=== PATIENT | male | born 1975 | race Caucasian/White ===

== ENCOUNTER 2022-10-22 10:36 | Outpatient (REF) | payer OTHER, SELFPAY ==
[2022-10-22 14:00] LABS: Hematocrit 47.2 % (42.0-52.0); Hemoglobin 15.6 g/dl (14.0-18.0); Mean Corpuscular HGB Conc 33.1 g/dl (31.0-36.0); Mean Corpuscular Hemoglobin 27.2 pg (27.0-33.0); Mean Corpuscular Volume 82.4 fL (80.0-98.0); Mean Platelet Volume 10.7 fL (9.4-12.4); Platelet Count 240 X10*3/uL (160-400); Red Blood Count 5.73 X10*6/uL (4.60-5.80); Red Cell Distribution Width 13.2 % (11.0-16.0); White Blood Count 7.1 X10*3/uL (4.8-10.8)
[2022-10-22 14:40] LABS: Alanine Aminotransferase 68 U/L (0-40); Albumin Level 4.3 g/dL (3.5-5.0); Alkaline Phosphatase 70 U/L (39-117); Anion Gap 11 (12-20); Aspartate Amino Transferase 34 U/L (5-37); Bilirubin Total 0.6 mg/dL (0.0-1.0); Blood Urea Nitrogen 17 mg/dL (9-16); Calcium 9.4 mg/dL (8.4-10.2); Carbon Dioxide 28 mmol/L (22-29); Chloride 103 mmol/L (96-108); Cholesterol 190 mg/dL; Estimated Glomerular Filt Rate > 60; Glucose Fasting 92 mg/dL (60-99); HDL Cholesterol 39 mg/dL; LDL Cholesterol Calculated 121 mg/dl; Potassium 4.2 mmol/L (3.3-5.1); Sodium 138 mmol/L (135-145); Total Protein 6.8 g/dL (6.5-8.0); Triglycerides 152 mg/dL
== END 2022-10-22 10:37 | disposition home or self-care (01) ==
LOC: HO.WFDLDS 10:36
PROVIDERS: Visit Provider Nurse Practitioner Family
DX: Z00.00 Encounter for general adult medical examination without abnormal findings (principal); R82.998 Other abnormal findings in urine
CPT/HCPCS: 36415; 80053; 80061; 84443; 85027; 87086

== ENCOUNTER 2023-01-21 09:37 | Outpatient (REF) | payer OTHER, SELFPAY ==
[2023-01-21 12:36] LABS: Alanine Aminotransferase 66 U/L (0-40); Albumin Level 4.1 g/dL (3.5-5.0); Alkaline Phosphatase 79 U/L (39-117); Aspartate Amino Transferase 29 U/L (5-37); Bilirubin Direct < 0.2 mg/dL (0.0-0.5); Bilirubin Total 0.4 mg/dL (0.0-1.0); Total Protein 6.6 g/dL (6.5-8.0)
[2023-01-21 12:58] LABS: TSH reflex Free T4 0.53 uIU/mL (0.32-4.0)
== END 2023-01-21 09:38 | disposition home or self-care (01) ==
LOC: HO.WFDLDS 09:37
PROVIDERS: Visit Provider Nurse Practitioner Family
DX: E03.9 Hypothyroidism, unspecified (principal); R74.8 Abnormal levels of other serum enzymes
CPT/HCPCS: 36415; 80076; 84443

== ENCOUNTER 2023-06-03 07:05 | Outpatient (REF) | payer OTHER, SELFPAY ==
[2023-06-03 12:23] LABS: TSH reflex Free T4 1.67 uIU/mL (0.32-4.0)
== END 2023-06-03 07:06 | disposition home or self-care (01) ==
LOC: HO.HMGCLDS 07:05
PROVIDERS: PCP Nurse Practitioner Family; Visit Provider Nurse Practitioner Family
DX: E03.9 Hypothyroidism, unspecified (principal); J45.909 Unspecified asthma, uncomplicated
CPT/HCPCS: 36415; 84443

== ENCOUNTER 2023-06-04 16:16 | Outpatient (AMB) | payer OTHER, SELFPAY ==
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
[2023-06-04 16:20] VITALS: BP 130/72; PULSE 78; O2SAT 97; BMI 38.9
== END 2023-06-04 16:55 | disposition home or self-care (01) ==
PROVIDERS: PCP Nurse Practitioner Family; Visit Provider Nurse Practitioner Family
DX: E03.9 Hypothyroidism, unspecified (principal); J45.909 Unspecified asthma, uncomplicated
CPT/HCPCS: 99213

== ENCOUNTER 2023-07-17 15:10 | Outpatient (AMB) | payer OTHER, SELFPAY ==
--- NOTE | 2023-07-17 15:15 | MHC.OFFVIS ---
Intake Vital Signs 07/17/23 15:17 Height 5 ft 11 in Weight 283 lb BMI 39.5 BP 130/68 Blood Pressure Location Rt brachial Position Sitting Pulse 84 Pulse Oximetry (%) 96 Oxygen Delivery Method Room Air 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: Asthma Print Line Inspector Required: No Healthcare Market Consultant: Healthcare Market Consultant offered & declined Accompanied by: Self / Same As Patient Allergies acetaminophen [From Percocet] Allergy (Unknown, Verified 07/17/23 15:19) Unknown oxycodone [From Percocet] Allergy (Unknown, Verified 07/17/23 15:19) Unknown Medication List - Last Reconciled 07/17/23 by Nhi Adrian LPN albuterol sulfate 90 mcg/actuation 2 puffs inhalation Q4-6H PRN aspirin 325 mg PO DAILY [id number]-hzkaqvzy 200-62.5-25 mcg (Trelegy Ellipta) 1 ea inhalation DAILY levothyroxine (Synthroid) 200 mcg PO DAILY 30 days montelukast 10 mg PO DAILY 90 days HPI Asthma HPI Details Franco is a pleasant 48 year old male, former smoker with 14 pack year history, quit 20 years ago with underlying asthma. He was referred by PCP for pulmonary evaluation. He reports suboptimal control with Trelegy, singulair and has been using his albuterol MDI upwards of 5 times per day with partial relief. He reports intermittent wheezing and dyspnea with moderate exertion, at times with minimal exertion. He also reports seasonal allergies with nasal congestion and post nasal drip. He notes allergies to dogs and cats, he has 3 dogs at home. He denies any childhood asthma. Mother, smoker, with lung cancer. He denies any occupational exposures. 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 Cognitive needs: No Hearing needs: No Vision needs: Yes Review of Systems Const Denies chills, Denies excessive sweating, Denies fever(s), Denies headache(s) and Denies night sweats Eyes Denies dry eyes, Denies irritation and Denies itchy eyes ENT Reports Normal hearing present, Denies headache(s) and Denies sore throat Card Denies chest pain, Denies chest pain at rest, Denies chest pain with activity, Denies leg edema, Denies orthopnea and Denies paroxysmal nocturnal dyspnea Resp Denies chest congestion, Denies cough, Denies excessive phlegm production, Denies pain on inspiration, Denies pain with cough and Denies stridor Musc Denies myalgias Neuro Reports Normal hearing present and Denies headache(s) Endo Denies excessive sweating Edmund/Lymph Denies lymphadenopathy Aller/Immun Denies itchy eyes and Denies seasonal rhinorrhea Physical Exam Vital Signs: Last Vital Signs Pulse 84 07/17/23 15:17 BP 130/68 07/17/23 15:17 Pulse Ox 96 07/17/23 15:17 Oxygen Delivery Method Room Air 07/17/23 15:17 BMI result Body Mass Index 39.5 Const General: cooperative, healthy appearing, comfortable, no acute distress, well developed and alert Nutritional Appearance: obese Orientation/consciousness: patient oriented x3 Limitations: no limitations HEENT Head: Yes normal to inspection, Yes normocephalic and Yes atraumatic Ears: hearing grossly normal bilaterally and external ears normal Eyes General: appearance normal, both eyes and all related structures Eyelids: Yes eyelids normal Sclerae: sclerae normal EOM: EOMs intact bilaterally Neck Neck: Yes normal visual inspection and Yes no lymphadenopathy Lymphatic: no lymphadenopathy noted Chest Chest palpation & inspection: normal inspection of the chest Resp Effort & Inspection: normal respiratory effort, able to speak in complete sentences, no audible wheezes, no cough, no stridor, not tachypneic, no tripod positioning and no use of accessory muscles Auscultation: clear to auscultation bilaterally Cardio Jugular venous distension: no JVD Rate: regular rate Rhythm: regular rhythm Skin Other: warm, dry General skin exam: no rashes or lesions noted Neuro General: patient oriented x3 Cranial nerves: Yes Normal hearing present Cognition (Neuro): normal cognition Gait exam (Neuro): Normal gait present Extrem General: Yes normal to inspection, Yes capillary refill normal, Yes no clubbing, cyanosis or edema and Yes no pedal edema Psych Appearance: grossly normal and well kempt Speech and movement: Normal speech and movement present and Clear speech present Affect: normal affect Attitude: cooperative Thought process: Normal thought process present Thought content: Normal thought content present Insight: Good insight present (Psych) Judgement: Good judgement present (Psych) Assessment & Plan Assessment & Plan (1) Asthma: Code(s): J45.909 - Unspecified asthma, uncomplicated Plan Patient with suboptimal control on Trelegy, singulair and albuterol MDI. Will send in prescription for nebulizer and duoneb. Briefly discussed biologics. Will obtain labs and send for PFT to thoroughly evaluate. All questions were answered and patient is in agreement of plan. Will follow up in 6 weeks. Medications: New albuterol sulfate 2.5 mg (3 mL) inhalation Q4-6H PRN 90 mL 0RF shortness of breath or wheezing ipratropium-albuterol 0.5 mg-3 mg(2.5 mg base)/3 mL 3 mL inhalation Q6H PRN 90 mL 3RF wheezing Changed From albuterol sulfate 90 mcg/actuation 2 puffs inhalation Q4-6H PRN 8.5 grams 3RF shortness of breath or wheezing To albuterol sulfate 90 mcg/actuation 2 puffs inhalation Q4-6H PRN 1 ea 3RF shortness of breath or wheezing NS Refilled montelukast 10 mg PO DAILY 90 days 90 tabs 3RF Coding Level of Care Code New Pt Level 3 (64347) Diagnoses Asthma J45.909
[2023-07-17 15:17] VITALS: BP 130/68; PULSE 84; O2SAT 96; BMI 39.5
== END 2023-07-17 15:52 | disposition home or self-care (01) ==
LOC: HO.HPSW 15:10
PROVIDERS: PCP Nurse Practitioner Family; Referring Provider Nurse Practitioner Family; Visit Provider Nurse Practitioner Family
DX: J45.909 Unspecified asthma, uncomplicated (principal)
CPT/HCPCS: 99203

== ENCOUNTER 2023-08-29 07:13 | Outpatient (REF) | payer OTHER, SELFPAY ==
[2023-08-29 12:20] LABS: TSH reflex Free T4 3.19 uIU/mL (0.32-4.0)
== END 2023-08-29 07:14 | disposition home or self-care (01) ==
LOC: HO.HMGCLDS 07:13
PROVIDERS: Absent Provider Nurse Practitioner Family; PCP Nurse Practitioner Family; Visit Provider Nurse Practitioner Family
DX: E03.9 Hypothyroidism, unspecified (principal); J45.909 Unspecified asthma, uncomplicated; Z91.09 Other allergy status, other than to drugs and biological substances
CPT/HCPCS: 36415; 82785; 84443; 86003

== ENCOUNTER 2023-10-14 13:14 | Outpatient (AMB) | payer OTHER, SELFPAY ==
[2023-10-14 13:15] VITALS: BP 136/80; PULSE 87; RESP 13; TEMP 36.6; O2SAT 97; BMI 40.2
--- NOTE | 2023-10-14 13:15 | A.OFFPC_ITS ---
Vital Signs 10/14/23 13:15 Height 5 ft 11 in Weight 288 lb 2 oz BMI 40.2 BP 136/80 Blood Pressure Location Rt brachial Position Sitting Respiration 13 Pulse 87 Pulse Source Pulse Oximeter Temp 97.8 F Temp Source Temporal Artery Scan Pulse Oximetry (%) 97 Oxygen Delivery Method Room Air 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: 3 mos hypothyroidism, asthma Day Trader Required: No Accompanied by: Self / Same As Patient Allergies acetaminophen [From Percocet] Allergy (Unknown, Verified 07/17/23 15:19) Unknown oxycodone [From Percocet] Allergy (Unknown, Verified 07/17/23 15:19) Unknown Tobacco use date assessed: 06/04/23 Dental Screening Dental Screen Date: 10/14/23 Did you have a dental visit in the last 12 months?: No Did you have a dental problem in the last 6 months where you did not have access to dental care?: No Was dental information given to patient?: Yes HPI HPI Comments History of Present Illness Details 48-year-old male presents for asthma and hypothyroidism follow-up He was seen by [facility] pulmonology in July and has a follow-up appointment to more He admits to taking his medications as prescribed without adverse reactions He offers no complaints and denies acute symptoms a this time [facility] Medical History No pertinent past medical history Surgical History History of back surgery Family History Mother Lung cancer Other Diabetes Social History Housing: House Alcohol intake: never Patient Tobacco Use Status: Former Tobacco user Cigarette Packs Per Day: 1 Years Smoked: 15 e-Cigarette/Vaping Use: Never Used Second Hand Smoke Exposure: No service: No Current occupational status: employed 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: More than 3 times per day How would you rate your asthma control during the past 4 weeks?: Somewhat controlled ACT Interpretation: Positive Score: 13 Review of Systems Const Details: Const Denies chills, Denies fatigue, Denies fever(s), Denies headache(s) and Denies weakness ENT Denies dizziness and Denies headache(s) Card Denies chest pain, Denies lightheadedness, Denies dyspnea and Denies other (Palpitations) Resp Denies cough, Denies dyspnea, Denies wheezing and Denies other ( shortness of breath) GI Denies abdominal pain, Denies melena, Denies hematochezia, Denies change in bowel habits, Denies dyspepsia and Denies nausea Denies hematuria and Denies dysuria Musc Denies abnormal gait, Denies myalgias, Denies arthralgias, Denies numbness and Denies tingling Skin/Breast Denies rash, Denies unusual bruising and Denies wounds Neuro Denies abnormal gait, Denies dizziness, Denies headache(s), Denies memory loss, Denies numbness, Denies Sensory deficit (Neuro), Denies tingling and Denies weakness Psych Denies anxiety, Denies depression, Denies memory loss Endo Denies cold intolerance, Denies fatigue, Denies heat intolerance, Denies polydipsia and Denies polyuria Aller/Immun Denies wheezing Physical exam (Primary Care) Vital Signs: Last Vital Signs Temp 97.8 F 10/14/23 13:15 Pulse 87 10/14/23 13:15 Resp 13 10/14/23 13:15 BP 136/80 10/14/23 13:15 Pulse Ox 97 10/14/23 13:15 Oxygen Delivery Method Room Air 10/14/23 13:15 BMI result Body Mass Index 40.2 Tobacco/Smoking Status: Tobacco use Status Tobacco use date assessed 06/04/23 10/14/23 13:23 Patient Tobacco Use Status Former Tobacco user 10/14/23 13:23 e-Cigarette/Vaping Use Never Used 10/14/23 13:23 Thrive Assessment: Date of Thrive Assessment Date Thrive assessed 06/04/23 10/14/23 13:23 Const Other: General: no acute distress and well developed Nutritional Appearance: well nourished Orientation/consciousness: patient oriented x3 [facility] Head: Yes normocephalic and Yes atraumatic Eyes General: appearance normal, both eyes and all related structures Pupils: Equal, round and reactive pupils present EOM: EOMs intact bilaterally Resp Effort & Inspection: normal respiratory effort Auscultation: clear to auscultation bilaterally Cardio Rate: regular rate Rhythm: regular rhythm Heart sounds: S1 normal heart sound present, S2 normal heart sound present, no gallops, no murmurs and no rubs GI Palpation (GI): No Abdominal aortic bruit present, Soft to palpation, nontender, No hepatosplenomegaly present and No Rebound tenderness present Auscultation: normal bowel sounds General: Yes no CVA tenderness Back/Spine/Pelvis Back: no CVA tenderness Cervical Spine: cervical ROM normal and No Cervical spine tenderness Thoracic/Lumbar Spine: thoraco-lumbar ROM normal, No pain with thoraco-lumbar ROM, No thoracic spinal tenderness and No lumbar spinal tenderness Extrem General: Yes normal to inspection, No edema and No calf tenderness Skin General: warm and dry. Normal skin color. Normal skin turgor Lesions: no lesions Rashes: no rashes Trauma: no lacerations or abrasions Wounds: no wounds Nails: normal Neuro General: patient oriented x3, gait normal and no focal neuro deficit Cranial nerves: Yes Equal, round and reactive pupils present Cognition (Neuro): normal cognition Gait exam (Neuro): Normal gait present Sensory Exam: No Sensory deficit (Neuro) Psych Appearance: grossly normal Affect: normal affect Attitude: cooperative Thought process: Normal thought process present Assessment and Plan Assessment & Plan (1) Asthma: Code(s): J45.909 - Unspecified asthma, uncomplicated Plan: ACT score is 13 and indicates poorly control asthma No acute symptoms Continue current treatment regimen and follow-up pulmonology as planned Advised to schedule a follow-up visit for an extended physical exam or return sooner with worsening or new symptoms Verbalized understanding and agreed with treatment (2) Hypothyroidism: Code(s): E03.9 - Hypothyroidism, unspecified Plan: Recent TSH was normal Continue current treatment regimen Follow-up in 1 month for an extended physical exam Verbalized understanding and agreed with treatment plan (3) Normal physical examination, routine: Code(s): Z00.00 - Encounter for general adult medical examination without abnormal findings Plan: Fasting labs ordered as part of a complete physical exam. Advised to fast for at least 10 hours before getting labs drawn. May drink water Verbalized understanding and agreed with treatment plan. Orders: Orders Complete Blood Count Auto Diff Today Z00.00 - Encounter for general adult medical examination without abnormal findings Comprehensive [place]. Panel Fast Today Z00.00 - Encounter for general adult medical examination without abnormal findings TSH reflex Free T4 Today Z00.00 - Encounter for general adult medical examination without abnormal findings Lipid Panel Today Z00.00 - Encounter for general adult medical examination without abnormal findings PSA, Ultra Sensitive Today Z00.00 - Encounter for general adult medical examination without abnormal findings Referrals Gastroenterology Referral Z12.11 - Encounter for screening for malignant neoplasm of colon Medications: Refilled levothyroxine (Synthroid) Synthroid - no substitution 200 mcg PO DAILY 30 days 30 tabs 3RF Coding Level of Care Code Est Pt Level 3 (74986) Diagnoses Asthma J45.909 Hypothyroidism E03.9 Normal physical examination, routine Z00.00
== END 2023-10-14 13:39 | disposition home or self-care (01) ==
PROVIDERS: PCP Nurse Practitioner Family; Visit Provider Nurse Practitioner Family
DX: J45.909 Unspecified asthma, uncomplicated (principal); E03.9 Hypothyroidism, unspecified; Z00.00 Encounter for general adult medical examination without abnormal findings
CPT/HCPCS: 99213

== ENCOUNTER 2023-10-15 07:34 | Outpatient (REF) | payer OTHER, SELFPAY ==
--- NOTE | 2023-10-15 08:30 | PFT_ITS ---
Flows: FEV1: 60 % of predicted at 2.45 L FVC: 75 % of predicted at 3.86 L FEV1/FVC: 62 % Bronchodilator response: Absent Volumes: Total lung capacity: 72 % of predicted at 5.39 L Residual volume: 79 % of predicted at 1.53 L Slow vital capacity: 70 % of predicted at 3.86 L Expiratory reserve volume: 26 % of predicted at 1.53 L Diffusion capacity: Mildly decreased, corrects to normal after adjustment for alveolar ventilation. Impression: Moderate obstructive ventilatory defect with no bronchodilator response. Decreased expiratory reserve volume suggests extrathoracic restriction likely secondary to abdominal obesity. Decreased diffusion capacity suggests emphysema. MTDD
== END 2023-10-15 07:35 | disposition home or self-care (01) ==
LOC: HO.RESP 07:34
PROVIDERS: PCP Nurse Practitioner Family; Visit Provider Nurse Practitioner Family
DX: J45.909 Unspecified asthma, uncomplicated (principal)
CPT/HCPCS: 94010; 94727; 94729

== ENCOUNTER → 2023-10-15 18:30 | Outpatient (BNV) | payer OTHER, SELFPAY | PROVIDERS: PCP Nurse Practitioner Family; Visit Provider Internal Medicine Pulmonary Disease | DX: J45.909 Unspecified asthma, uncomplicated (principal) | CPT/HCPCS: 94060; 94727; 94729 ==

== ENCOUNTER 2023-12-03 08:22 | Outpatient (AMB) | payer OTHER, SELFPAY ==
[2023-12-03 08:24] VITALS: BP 122/82; PULSE 100; O2SAT 96
--- NOTE | 2023-12-03 08:24 | A.OFFVIS_ITS ---
Intake Vital Signs 3 12/03/23 08:24 Weight 291 lb BP 122/82 Blood Pressure Location Lt brachial Position Sitting Pulse 100 Pulse Source Pulse Oximeter Pulse Oximetry (%) 96 Oxygen Delivery Method Room Air 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: asthma Allergies acetaminophen [From Percocet] Allergy (Unknown, Verified 12/03/23 08:28) Unknown oxycodone [From Percocet] Allergy (Unknown, Verified 12/03/23 08:28) Unknown Medication List - Last Reconciled 12/03/23 by Ifrah Valenzuela LPN albuterol sulfate 90 mcg/actuation 2 puffs inhalation Q4-6H PRN NS albuterol sulfate 2.5 mg (3 mL) inhalation Q4-6H PRN aspirin 325 mg PO DAILY [id number] 200-62.5-25 mcg (Trelegy Ellipta) 1 ea inhalation DAILY ipratropium-albuterol 0.5 mg-3 mg(2.5 mg base)/3 mL 3 mL inhalation Q6H PRN levothyroxine (Synthroid) 200 mcg PO DAILY 30 days montelukast 10 mg PO DAILY 90 days HPI asthma 2 HPI0 Details Franco is a pleasant 48 year old male, former smoker with 14 pack year history, quit 20 years ago with underlying asthma, allergic rhinitis, and BEST on CPAP therapy. He reports suboptimal control with Trelegy, singulair and duoneb. He continues to report intermittent wheezing and dyspnea with moderate exertion, which is mildly improved with duoneb. He also reports occasional dry cough. He denies orthopnea and BLE. Of note, he has not had a provider review compliance for CPAP therapy since moving from [place] in 2018. He reports his last sleep study was approximately 6 years ago. Initially, he had testing due to witnessed apneas, PND, loud snoring and significant daytime fatigue. He also reports post nasal drip, with minimal response to flonase in the past. Today he presents to review results of PFT and RAST. 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 Cognitive needs: No Hearing needs: No Vision needs: No Review of Systems Const Denies chills, Denies excessive sweating, Denies fever(s), Denies headache(s) and Denies night sweats Eyes Denies dry eyes, Denies irritation and Denies itchy eyes ENT Reports Normal hearing present, Denies headache(s) and Denies sore throat Card Denies chest pain, Denies chest pain at rest, Denies chest pain with activity, Denies leg edema, Denies orthopnea and Denies paroxysmal nocturnal dyspnea Resp Denies chest congestion, Denies excessive phlegm production, Denies pain on inspiration, Denies pain with cough and Denies stridor Musc Denies myalgias Neuro Reports Normal hearing present and Denies headache(s) Endo Denies excessive sweating Edmund/Lymph Denies lymphadenopathy Aller/Immun Denies itchy eyes and Denies seasonal rhinorrhea Physical Exam Vital Signs: Last Vital Signs Pulse 100 12/03/23 08:24 BP 122/82 12/03/23 08:24 Pulse Ox 96 12/03/23 08:24 Oxygen Delivery Method Room Air 12/03/23 08:24 Const General: cooperative, healthy appearing, comfortable, no acute distress, well developed and alert Nutritional Appearance: obese Orientation/consciousness: patient oriented x3 Limitations: no limitations HEENT Head: Yes normal to inspection, Yes normocephalic and Yes atraumatic Ears: hearing grossly normal bilaterally and external ears normal Eyes General: appearance normal, both eyes and all related structures Eyelids: Yes eyelids normal Sclerae: sclerae normal EOM: EOMs intact bilaterally Neck Neck: Yes normal visual inspection and Yes no lymphadenopathy Lymphatic: no lymphadenopathy noted Chest Chest palpation & inspection: normal inspection of the chest Resp Effort & Inspection: normal respiratory effort, able to speak in complete sentences, no audible wheezes, no cough, no stridor, not tachypneic, no tripod positioning and no use of accessory muscles Auscultation: clear to auscultation bilaterally Cardio Jugular venous distension: no JVD Rate: regular rate Rhythm: regular rhythm Skin Other: warm, dry General skin exam: no rashes or lesions noted Neuro General: patient oriented x3 Cranial nerves: Yes Normal hearing present Cognition (Neuro): normal cognition Gait exam (Neuro): Normal gait present Extrem General: Yes normal to inspection, Yes capillary refill normal, Yes no clubbing, cyanosis or edema and Yes no pedal edema Psych Appearance: grossly normal and well kempt Speech and movement: Normal speech and movement present and Clear speech present Affect: normal affect Attitude: cooperative Thought process: Normal thought process present Thought content: Normal thought content present Insight: Good insight present (Psych) Judgement: Good judgement present (Psych) Results Reviewed Results Reviewed: Assessment & Plan Assessment & Plan (1) Asthma-COPD overlap syndrome: Code(s): J44.89 - Other specified chronic obstructive pulmonary disease (2) Daytime somnolence: Code(s): R40.0 - Somnolence (3) Former smoker: Code(s): Z87.891 - Personal history of nicotine dependence Plan Patient with suboptimal control on Trelegy, singulair and albuterol MDI. Advised using duoneb BID. Briefly discussed trialing another inhaler, however patient has two months left of Trelegy and would like to continue at this time. Reviewed PFT which revealed moderate obstruction and no response to bronchodilators. TLC was slightly decreased likely secondary to abdominal obesity. DLCO slightly decreased suggestive of emphysema. Will send for chest CT to evaluate to parenchymal disease. Reviewed RAST which revealed allergies to dog, cat and dust mites. Reviewed ways to minimize allergen exposure. Patient would like to continue CPAP therapy through this office. Last sleep study 6 years ago, will send for current sleep study. All questions were answered and patient is in agreement of plan. Will follow up to review results. Orders: Orders 2 RT home sleep study Today R40.0 - Somnolence Medications: New 2 ipratropium bromide administer into each nostril 2 sprays intranasal BID 30 mL 3RF Refilled 2 ipratropium-albuterol 0.5 mg-3 mg(2.5 mg base)/3 mL 3 mL inhalation Q6H PRN 90 mL 3RF wheezing Coding Level of Care Code Est Pt Level 4 (16724) Diagnoses Asthma-COPD overlap syndrome J44.89 Daytime somnolence R40.0 Former smoker Z87.891
== END 2023-12-03 08:57 | disposition home or self-care (01) ==
PROVIDERS: PCP Nurse Practitioner Family; Visit Provider Nurse Practitioner Family
DX: J44.89 Other specified chronic obstructive pulmonary disease (principal); R40.0 Somnolence; Z87.891 Personal history of nicotine dependence
CPT/HCPCS: 99214

== ENCOUNTER → 2023-12-03 08:22 | Outpatient (BNVA) | payer OTHER, SELFPAY | PROVIDERS: PCP Nurse Practitioner Family; Visit Provider Nurse Practitioner Family ==

== ENCOUNTER 2023-12-30 08:20 | Outpatient (AMB) | payer OTHER, SELFPAY ==
[2023-12-30 08:21] VITALS: BP 134/86; PULSE 96; RESP 13; TEMP 36.5; O2SAT 98; BMI 40.2
--- NOTE | 2023-12-30 08:21 | A.OFFPC_ITS ---
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 Required: No Accompanied by: Self / Same As Patient Allergies acetaminophen [From Percocet] Allergy (Unknown, Verified 12/30/23 08:45) Unknown oxycodone [From Percocet] Allergy (Unknown, Verified 12/30/23 08:45) Unknown Medication List - Last Reconciled 12/30/23 by Anna Lugo CNP albuterol sulfate 90 mcg/actuation 2 puffs inhalation Q4-6H PRN NS albuterol sulfate 2.5 mg (3 mL) inhalation Q4-6H PRN aspirin 325 mg PO DAILY [id number]-xfbylppph-ybyhlslf 200-62.5-25 mcg (Trelegy Ellipta) 1 ea inhalation DAILY ipratropium bromide 2 sprays intranasal BID ipratropium-albuterol 0.5 mg-3 mg(2.5 mg base)/3 mL 3 mL inhalation Q6H PRN levothyroxine (Synthroid) 200 mcg PO DAILY 30 days montelukast 10 mg PO DAILY 90 days Tobacco use date assessed: 12/30/23 Dental Screening Dental Screen Date: 12/30/23 Did you have a dental visit in the last 12 months?: Yes Did you have a dental problem in the last 6 months where you did not have access to dental care?: No Was dental information given to patient?: Patient has dentist HPI HPI Comments History of Present Illness Details 48-year-old male presents for complete p hysical exam His last extended physical was in October 2022 He has past medical history significant for asthma, hypothyroidism, and morbid obesity He admits to taking his medications as prescribed without adverse reactions He admits to making healthy dietary choices. 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 Colonoscopy was ordered in 2021; he notes that he never scheduled an appointment He states that he has never be vaccinated for shingles He notes that he has not been vaccinated for the flu this season [facility] Medical History No pertinent past medical history Surgical History History of back surgery Family History Mother Lung cancer Other Diabetes Social History Housing: House Alcohol intake: never Patient Tobacco Use Status: Former Tobacco user Cigarette Packs Per Day: 1 Years Smoked: 15 e-Cigarette/Vaping Use: Never Used Second Hand Smoke Exposure: No service: No Current occupational status: employed 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 1. Little interest or pleasure in doing things: not at all 2. Feeling down, depressed, or hopeless: not at all 3. Trouble falling or staying asleep, or sleeping too much: not at all 4. Feeling tired or having little energy: not at all 5. Poor appetite or overeating: not at all 6. Feeling bad about yourself - or that you are a failure or have let yourself or your family down: not at all 7. Trouble concentrating on things, such as reading the newspaper or watching television: not at all 8. Moving or speaking so slowly that other people could have noticed. Or the opposite - being so fidgety or restless that you have been moving around a lot more than usual: not at all 9. Thoughts that you would be better off or of hurting yourself in some way: not at all Total score: 0 Depression Screening Interpretation: Negative Depression Screening Done: Yes [id number] - PHQ-9 Billing: Yes Source: Developed by Drs. Alfonso Ann, Geraldine Whipple, Karlos Morales and colleagues, with an educational isabelle from [employer]. Thrive Questionnaire Date Thrive assessed: 12/30/23 I am a: Patient What is your living situation today?: I have a steady place to live Within the past 12 months, did the food you bought not last and you didn't have the money to get more?: Never true Within the past 12 months, did you worry whether your food would run out before you got money to buy more?: Never true Do you have trouble paying for medicines?: No Do you have trouble getting transportation to medical appointments?: No Do you have trouble paying your heating and electricity bill?: No Do you have trouble taking care of your child, family member or friend?: No Do you have trouble with day-to-day activities such as bathing, preparing meals, shopping, managing finances, etc.?: No Are you currently unemployed and looking for a job?: No Are you interested in more education?: No Please select the resources that you would like help with: None Currently or been in a relationship where the following occur: no concerns reported THRIVE Score: 0 AUDIT C Alcohol Use Questionnaire (AUDIT-C) 1. How often do you have a drink containing alcohol?: Monthly or less 2. How many drinks containing alcohol do you have on a typical day when you are drinking?: 1 or 2 3. How often do you have six or more drinks on one occasion?: Never Total Score: 1 EVELIN-7 AMB Questionnaire EVELIN-7 Date EVELIN - 7 assessed: 12/30/23 Feeling nervous, anxious, or on edge: 0 = Not at all Not being able to stop or control worryin = Not at all Worrying too much about different things: 1 = Several days Trouble relaxin = Not at all Being so restless that it is hard to sit still: 1 = Several days Becoming easily annoyed or irritable: 0 = Not at all Feeling afraid as if something awful might happen: 0 = Not at all Total EVELIN-7 score (0-4 normal; 5-9 mild; 10-14 moderate; 15-21 severe): 2 Source: Developed by Drs. Alfonso Ann, Geraldine Whipple, Karlos Morales and colleagues, with an educational isabelle from [employer]. EVELIN-7 Assessment Billing EVELIN-7 Assessment Tool: EVELIN-7 Assessment 23974 ACT Questionnaire In the past 4 weeks, how much of the time did your asthma keep you from getting as much done at work, school or at home?: Some of the time During the past 4 weeks, how often have you had shortness of breath?: More than once a day During the past 4 weeks, how often did your asthma symptoms wake you up at night or earlier than usual in the morning?: Not at all During the past 4 weeks, how often have you had to use your rescue inhaler or nebulizer medication?: 2-3 times a week How would you rate your asthma control during the past 4 weeks?: Somewhat controlled ACT Interpretation: Positive ACT Branch: Other (Continue current treatment regimen. [place] [facility] [place] Score: 15 Review of Systems Const Details: Denies chills, Denies fatigue, Denies fever(s), Denies headache(s) and Denies weakness HEENT Denies change in vision, Denies dizziness, Denies headache(s), Denies hearing loss, Denies nasal congestion, Denies sinus pain, Denies sinus pressure and Denies sore throat Card Denies chest pain, Denies lightheadedness, Denies dyspnea and Denies other (palpitations) Resp Denies cough, Denies dyspnea and Denies wheezing GI Denies abdominal pain, Denies melena, Denies hematochezia, Denies change in bowel habits, Denies dyspepsia and Denies nausea Denies hematuria and Denies dysuria Musc Denies abnormal gait, Denies myalgias, Denies arthralgias, Denies numbness and Denies tingling Skin/Breast Denies rash, Denies unusual bruising and Denies wounds Neuro Denies abnormal gait, Denies dizziness, Denies headache(s), Denies memory loss, Denies numbness, Denies Sensory deficit (Neuro), Denies tingling and Denies weakness Psych Denies anxiety, Denies depression and Denies memory loss Endo Denies cold intolerance, Denies fatigue, Denies heat intolerance, Denies lashawn ydipsia and Denies polyuria Edmund/Lymph Denies easy bleeding and Denies easy bruising Aller/Immun Denies wheezing Physical exam (Primary Care) Vital Signs: Last Vital Signs Temp 97.7 F 12/30/23 08:21 Pulse 96 12/30/23 08:21 Resp 13 12/30/23 08:21 BP 134/86 12/30/23 08:21 Pulse Ox 98 12/30/23 08:21 Oxygen Delivery Method Room Air 12/30/23 08:21 BMI result Body Mass Index 40.2 Tobacco/Smoking Status: Tobacco use Status Tobacco use date assessed 12/30/23 12/30/23 08:32 Patient Tobacco Use Status Former Tobacco user 12/30/23 08:32 e-Cigarette/Vaping Use Never Used 12/30/23 08:32 PHQ-9: PHQ-9 Score PHQ-9: Total score 0 12/30/23 08:32 Depression Screening Interpretation: Negative Thrive Assessment: Date of Thrive Assessment Date Thrive assessed 12/30/23 12/30/23 08:32 Currently or been in a relationship where the following occur: no concerns reported Const Other: General: no acute distress, well developed, alert and awake Nutritional Appearance: well nourished Orientation/consciousness: patient oriented x3 HENMT Head: Yes normocephalic and Yes atraumatic Ears: hearing grossly normal bilaterally and TM's normal bilaterally General nose exam: Normal external nose present and Normal nares present Mouth: Normal oral and palatal mucosa present and moist mucous membranes Teeth and gingiva: dentition normal Throat: Yes oropharynx normal Eyes Pupils: Equal, round and reactive pupils present and Pupil accommodation reflex normal EOM: EOMs intact bilaterally Neck Neck: Yes normal visual inspection, Yes no lymphadenopathy and Yes trachea midline Thyroid: Thyroid normal Carotids: no bruits Lymphatic: no lymphadenopathy noted Chest Chest palpation & inspection: normal inspection of the chest Resp Effort & Inspection: normal respiratory effort Auscultation: clear to auscultation bilaterally Cardio Rate: regular rate Rhythm: regular rhythm Heart sounds: S1 normal heart sound present, S2 normal heart sound present, no gallops, no murmurs and no rubs Bruits: no abdominal aortic bruits and no carotid bruits GI Palpation (GI): No Abdominal aortic bruit present, Soft to palpation, nontender, No hepatosplenomegaly present and No Rebound tenderness present Auscultation: normal bowel sounds General: Yes no CVA tenderness Back/Spine/Pelvis Back: no CVA tenderness Cervical Spine: cervical ROM normal and No Cervical spine tenderness Thoracic/Lumbar Spine: thoraco-lumbar ROM normal, No pain with thoraco-lumbar ROM, No thoracic spinal tenderness and No lumbar spinal tenderness Skin General: warm and dry. Normal skin color. Normal skin turgor Lesions: no lesions Rashes: no rashes Trauma: no lacerations or abrasions Wounds: no wounds Nails: normal Neuro General: patient oriented x3, gait normal and CN's II-XI intact bilaterally Cranial nerves: Yes Equal, round and reactive pupils present Cognition (Neuro): normal cognition Gait exam (Neuro): Normal gait present Motor exam (neuro): 5/5 motor strength present throughout Sensory Exam: No Sensory deficit (Neuro) Deep tendon reflexes (DTR's): Right patellar reflex intensity grade: 2+ and Left patellar reflex intensity grade: 2+ Extrem General: Yes normal to inspection, No edema and No calf tenderness Psych Appearance: grossly normal Affect: normal affect Attitude: cooperative Thought process: Normal thought process present Assessment and Plan Assessment & Plan (1) Normal physical examination, routine: Code(s): Z00.00 - Encounter for general adult medical examination without abnormal findings Plan: No significant physical restrictions or limitations noted Continue current treatment regimen Healthy diet and routine exercise encouraged Follow-up in 3-4 weeks for telehealth visit for labs review Return sooner with symptoms or concerns Verbalized understanding and agreed with the treatment plan (2) Asthma: Code(s): J45.909 - Unspecified asthma, uncomplicated Plan: ACT score is 15, partially control asthma Continue current treatment regimen Continue follow-up with pulmonology as planned Return with symptoms or concerns Verbalized understanding and agreed with treatment plan (3) Hypothyroidism: Code(s): E03.9 - Hypothyroidism, unspecified Plan: Recent TSH level in August 2023 is normal, 3.19 Will recheck TSH level and make changes as needed Continue to take Synthroid as prescribed Verbalized understanding and agreed with the treatment plan (4) Morbid obesity with BMI of 40.0-44.9, adult: Code(s): E66.01 - Morbid (severe) obesity due to excess calories; Z68.41 - Body mass index [BMI] 40.0-44.9, adult Plan: He currently weighs 288 lb, BMI is 40.2 Admits to making dietary changes. However, he has not been exercising He declines referral to trackless trolley driver or weight management at this time; he notes that he may consider this treatment modality if he does not lose weight Healthy diet and routine exercise encouraged Advised to inform his PCP if he changes his mind on referral to trackless trolley driver or weight management Follow-up with symptoms or concerns Verbalized understanding and agreed with treatment plan (5) Encounter for screening colonoscopy: Code(s): Z12.11 - Encounter for screening for malignant neoplasm of colon Plan: He has never had a colonoscopy. Colonoscopy was ordered in 2021; he notes that he never scheduled an appointment Ref[place] [facility] [place] [place]. Encouraged to schedule appointment when contacted Verbalized understanding and agreed with the plan (6) Vaccine counseling: Code(s): Z71.85 - Encounter for immunization safety counseling Plan: He has not been vaccinated for shingles or influenza Instructed on importance of vaccination and encouraged to get vaccinated for flu and influenza Verbalized understanding and agreed with the plan (7) Laboratory tests ordered as part of a complete physical exam (CPE): Code(s): Z00.00 - Encounter for general adult medical examination without abnormal findings Plan: Fasting labs ordered in preparation of a complete physical exam. Advised to fast for at least 10 hours before getting labs drawn. May drink water Verbalized understanding and agreed with treatment plan. Orders: Orders Complete Blood Count Auto Diff Today Z00.00 - Encounter for general adult medical examination without abnormal findings Comprehensive [place]. Panel Fast Today Z00.00 - Encounter for general adult medical examination without abnormal findings UA CC w/rflx Micro + Cult Today Z00.00 - Encounter for general adult medical examination without abnormal findings PSA, Ultra Sensitive Today Z00.00 - Encounter for general adult medical examination without abnormal findings Lipid Panel Today Z00.00 - Encounter for general adult medical examination without abnormal findings TSH reflex Free T4 Today Z00.00 - Encounter for general adult medical examination without abnormal findings Referrals Gastroenterology Referral Z12.11 - Encounter for screening for malignant neoplasm of colon Coding Level of Care Code Est Pt Prev Care 40-64y(68536) Diagnoses Normal physical examination, routine Z00.00 Asthma J45.909 Hypothyroidism E03.9 Morbid obesity with BMI of 40.0-44.9, adult E66.01; Z68.41 Encounter for screening colonoscopy Z12.11 Vaccine counseling Z71.85 Laboratory tests ordered as part of a complete physical exam (CPE) Z00.00 Additional Codes EVELIN-7 Assessment Billing - EVELIN-7 Assessment Tool: EVELIN-7 Assessment [id number] ([id number])
== END 2023-12-30 08:59 | disposition home or self-care (01) ==
PROVIDERS: PCP Nurse Practitioner Family; Visit Provider Nurse Practitioner Family
DX: Z00.00 Encounter for general adult medical examination without abnormal findings (principal); E66.01 Morbid (severe) obesity due to excess calories; Z68.41 Body mass index [BMI] 40.0-44.9, adult; J45.909 Unspecified asthma, uncomplicated; E03.9 Hypothyroidism, unspecified; Z12.11 Encounter for screening for malignant neoplasm of colon; Z71.85 Encounter for immunization safety counseling
CPT/HCPCS: 99396

== ENCOUNTER 2024-01-15 13:26 | Outpatient (REF) | payer OTHER, SELFPAY ==
[2024-01-15 16:07] LABS: MANUAL DIFF FLAG NO
[2024-01-15 16:17] LABS: Basophils Absolute Auto 0.1 X10*3/uL (0.0-0.2); Basophils Percent Auto 0.6 % (0-2); Eosinophils Absolute Auto 0.2 X10*3/uL (0.0-0.4); Eosinophils Percent Auto 2.3 % (0-4); Hematocrit 47.3 % (42.0-52.0); Hemoglobin 15.9 g/dl (14.0-18.0); Imm Gran Abs Auto 0.03 X10*3/uL (0.00-0.03); Imm Gran Pct Auto 0.4 % (0.0-0.4); Lymphocytes Absolute Auto 1.7 X10*3/uL (1.2-4.9); Lymphocytes Percent Auto 22.2 % (20-40); Mean Corpuscular HGB Conc 33.6 g/dl (31.0-36.0); Mean Corpuscular Hemoglobin 27.6 pg (27.0-33.0); Mean Platelet Volume 10.5 fL (9.4-12.4); Monocytes Absolute Auto 0.6 X10*3/uL (0.1-1.2); Monocytes Percent Auto 7.8 % (2-11); Neutrophils Absolute Auto 5.2 x10*3/uL (2.0-8.3); Neutrophils Percent Auto 66.7 % (45-73); Platelet Count 242 X10*3/uL (160-400); Red Blood Count 5.77 X10*6/uL (4.60-5.80); Red Cell Distribution Width 13.3 % (11.0-16.0); White Blood Count 7.7 X10*3/uL (4.8-10.8)
[2024-01-15 16:39] LABS: Alanine Aminotransferase 61 U/L (0-40); Albumin Level 4.1 g/dL (3.5-5.0); Alkaline Phosphatase 71 U/L (39-117); Anion Gap 12 (12-20); Aspartate Amino Transferase 30 U/L (5-37); Bilirubin Total 0.6 mg/dL (0.0-1.0); Blood Urea Nitrogen 12 mg/dL (9-16); Calcium 9.7 mg/dL (8.4-10.2); Carbon Dioxide 27 mmol/L (22-29); Chloride 104 mmol/L (96-108); Cholesterol 188 mg/dL (<200); Estimated Glomerular Filt Rate > 60; Glucose Fasting 101 mg/dL (60-99); HDL Cholesterol 43 mg/dL (>40); LDL Cholesterol Calculated 116 mg/dL (<100); Potassium 4.1 mmol/L (3.3-5.1); Sodium 139 mmol/L (135-145); Total Protein 7.4 g/dL (6.5-8.0); Triglycerides 147 mg/dL (<150)
[2024-01-15 16:55] LABS: TSH reflex Free T4 0.95 uIU/mL (0.32-4.0)
[2024-01-20 23:09] LABS: PSA, Ultra Sensitive 1.02 ng/mL
== END 2024-01-15 13:27 | disposition home or self-care (01) ==
LOC: HO.HMGCLDS 13:26
PROVIDERS: PCP Nurse Practitioner Family; Visit Provider Nurse Practitioner Family
DX: Z00.00 Encounter for general adult medical examination without abnormal findings (principal); Z12.5 Encounter for screening for malignant neoplasm of prostate; Z13.6 Encounter for screening for cardiovascular disorders
CPT/HCPCS: 36415; 80053; 80061; 84153; 84443; 85025

== ENCOUNTER → 2024-01-20 08:04 | Outpatient (REF) | payer OTHER, SELFPAY | LOC: HO.SL 08:04 | PROVIDERS: Visit Provider Nurse Practitioner Family | DX: G47.33 Obstructive sleep apnea (adult) (pediatric) (principal); R40.0 Somnolence | CPT/HCPCS: 95806 ==

== ENCOUNTER → 2024-01-20 08:36 | Outpatient (BNV) | payer OTHER, SELFPAY | PROVIDERS: Visit Provider Internal Medicine | DX: G47.33 Obstructive sleep apnea (adult) (pediatric) (principal) | CPT/HCPCS: 95806 ==

== ENCOUNTER 2024-01-20 17:30 | Outpatient (AMB) | payer OTHER, SELFPAY ==
--- NOTE | 2024-01-20 17:27 | MHC.PC.OV ---
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 Allergies acetaminophen [From Percocet] Allergy (Unknown, Verified 01/20/24 18:24) Unknown oxycodone [From Percocet] Allergy (Unknown, Verified 01/20/24 18:24) Unknown Medication List - Last Reconciled 01/20/24 by Anna Lugo CNP albuterol sulfate 90 mcg/actuation 2 puffs inhalation Q4-6H PRN NS albuterol sulfate 2.5 mg (3 mL) inhalation Q4-6H PRN aspirin 325 mg PO DAILY lhqvnelbowd-cdqwmnoaj-ykqjdnni 200-62.5-25 mcg (Trelegy Ellipta) 1 ea inhalation DAILY ipratropium bromide 2 sprays intranasal BID ipratropium-albuterol 0.5 mg-3 mg(2.5 mg base)/3 mL 3 mL inhalation Q6H PRN levothyroxine (Synthroid) 200 mcg PO DAILY 30 days montelukast 10 mg PO DAILY 90 days Tobacco use date assessed: 12/30/23 HPI HPI Comments History of Present Illness Details 48-year-old male presents for a telehealth visit for review of recent blood work He admits to taking his medications as prescribed without adverse reactions He offers no complaints and denies acute symptoms at this time [facility] Medical History No pertinent past medical history Surgical History History of back surgery Family History Mother Lung cancer Other Diabetes Social History Housing: House Alcohol intake: never Patient Tobacco Use Status: Former Tobacco user Cigarette Packs Per Day: 1 Years Smoked: 15 e-Cigarette/Vaping Use: Never Used Second Hand Smoke Exposure: No service: No Current occupational status: employed 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 Alfonso Ann, Geraldine Karlos Escobedo and colleagues, with an educational isabelle from [employer]. Review of Systems Const Details: Const Denies chills, Denies fatigue, Denies fever(s), Denies headache(s) and Denies weakness ENT Denies dizziness and Denies headache(s) Card Denies chest pain, Denies lightheadedness, Denies dyspnea and Denies other (Palpitations) Resp Denies cough, Denies dyspnea, Denies wheezing and Denies other ( shortness of breath) GI Denies abdominal pain, Denies melena, Denies hematochezia, Denies change in bowel habits, Denies dyspepsia and Denies nausea Denies hematuria and Denies dysuria Musc Denies abnormal gait, Denies myalgias, Denies arthralgias, Denies numbness and Denies tingling Skin/Breast Denies rash, Denies unusual bruising and Denies wounds Neuro Denies abnormal gait, Denies dizziness, Denies headache(s), Denies memory loss, Denies numbness, Denies Sensory deficit (Neuro), Denies tingling and Denies weakness Psych Denies anxiety, Denies depression, Denies memory loss Endo Denies cold intolerance, Denies fatigue, Denies heat intolerance, Denies polydipsia and Denies polyuria Aller/Immun Denies wheezing Physical exam (Primary Care) Tobacco/Smoking Status: Tobacco use Status Tobacco use date assessed 12/30/23 01/20/24 17:29 Patient Tobacco Use Status Former Tobacco user 01/20/24 17:29 e-Cigarette/Vaping Use Never Used 01/20/24 17:29 Thrive Assessment: Date of Thrive Assessment Date Thrive assessed 12/30/23 01/20/24 17:29 Const Other: Telehealth visit. No physical exam Telehealth Telehealth Location of provider rendering services: practice address Location of patient: address on file Patient Identification confirmed using: Name, : Yes Telehealth method: voice only Patient verbally consented to treatment: Yes Patient verbally consented to billing insurance company: Yes Patient informed of any privacy concerns related to visit: Yes Assessment and Plan Assessment & Plan (1) Elevated fasting glucose: Code(s): R73.01 - Impaired fasting glucose Plan: Recent lab results reviewed with the patient Fasting glucose is slightly elevated, 101 Will recheck fasting glucose Advised to get fasting blood work done before his next visit Follow-up in 6 months for hyperlipidemia and elevated fasting glucose or return sooner with symptoms or concerns Verbalized understanding and agreed with treatment plan (2) Elevated ALT measurement: Code(s): R74.01 - Elevation of levels of liver transaminase levels Plan: Recent ALT is elevated, 61 Likely hepatic steatosis Healthy diet and routine exercise encouraged Follow-up with symptoms or concerns Verbalized understanding and agreed with the plan Orders: Orders TSH reflex Free T4 6 Months E03.9 - Hypothyroidism, unspecified Glucose Fasting 6 Months R73.01 - Impaired fasting glucose Coding Level of Care Code Tele Est Pt Level 2 (38223) Diagnoses Elevated fasting glucose R73.01 Elevated ALT measurement R74.01 Time Spent (min) 10
== END 2024-01-20 18:35 | disposition home or self-care (01) ==
LOC: HO.HMGFM 17:30
PROVIDERS: PCP Nurse Practitioner Family; Visit Provider Nurse Practitioner Family
DX: R73.01 Impaired fasting glucose (principal); R74.01 Elevation of levels of liver transaminase levels
CPT/HCPCS: 99441

== ENCOUNTER 2024-02-12 09:35 | Outpatient (AMB) | payer OTHER, SELFPAY ==
[2024-02-12 09:40] VITALS: BP 132/70; PULSE 89; O2SAT 96; BMI 40.0
--- NOTE | 2024-02-12 09:40 | A.OFFVIS_ITS ---
Intake Vital Signs 02/12/24 09:40 Height 5 ft 11 in Weight 287 lb BMI 40.0 BP 132/70 Blood Pressure Location Lt brachial Position Sitting Pulse 89 Pulse Source Pulse Oximeter Pulse Oximetry (%) 96 Oxygen Delivery Method Room Air 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: dyspnea Rubber Grinder Required: No Client Services Vice President: Client Services Vice President offered & declined Accompanied by: Self / Same As Patient Allergies acetaminophen [From Percocet] Allergy (Unknown, Verified 02/12/24 09:45) Unknown oxycodone [From Percocet] Allergy (Unknown, Verified 02/12/24 09:45) Unknown Medication List - Last Reconciled 02/12/24 by Nhi Adrian LPN albuterol sulfate 90 mcg/actuation 2 puffs inhalation Q4-6H PRN NS albuterol sulfate 2.5 mg (3 mL) inhalation Q4-6H PRN aspirin 325 mg PO DAILY kxrnrdjmgyb-jtehiyogk-fenjzdfp 200-62.5-25 mcg (Trelegy Ellipta) 1 ea inhalation DAILY ipratropium bromide 2 sprays intranasal BID ipratropium-albuterol 0.5 mg-3 mg(2.5 mg base)/3 mL 3 mL inhalation Q6H PRN levothyroxine (Synthroid) 200 mcg PO DAILY 30 days montelukast 10 mg PO DAILY 90 days HPI dyspnea HPI Details Franco is a pleasant 48 year old male, former smoker with 14 pack year history, quit 20 years ago with underlying asthma, allergic rhinitis, and BEST on CPAP therapy. He reports suboptimal control with Trelegy, singulair and duoneb. He continues to report intermittent wheezing, dry cough and dyspnea with exertion, which is mildly improved with duoneb. He also reports decreased exercise capacity, fatiguing easily. At the last visit, he denied orthopnea and BLE, however he does report new symptoms of this. No prior echo. Today he presents to review sleep study. He reports being managed by prior provider in [place] years ago and has been compliant with CPAP therapy, using 6-8 hours per night consistently. However he does report that his machine does not reflect his compliance. 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 Cognitive needs: No Hearing needs: No Vision needs: No Review of Systems Const Denies chills, Denies excessive sweating, Denies fever(s), Denies headache(s) and Denies night sweats Eyes Denies dry eyes, Denies irritation and Denies itchy eyes ENT Reports Normal hearing present, Denies headache(s), Denies nasal congestion, Denies nasal discharge, Denies post nasal drip and Denies sore throat Card Denies chest pain, Denies chest pain at rest, Denies chest pain with activity, Denies claudication and Denies paroxysmal nocturnal dyspnea Resp Denies chest congestion, Denies excessive phlegm production, Denies pain on inspiration, Denies pain with cough and Denies stridor Musc Denies myalgias Neuro Reports Normal hearing present and Denies headache(s) Endo Denies excessive sweating Edmund/Lymph Denies lymphadenopathy Aller/Immun Denies itchy eyes and Denies seasonal rhinorrhea Physical Exam Vital Signs: Last Vital Signs Pulse 89 02/12/24 09:40 BP 132/70 02/12/24 09:40 Pulse Ox 96 02/12/24 09:40 Oxygen Delivery Method Room Air 02/12/24 09:40 BMI result Body Mass Index 40.0 Const General: cooperative, healthy appearing, comfortable, no acute distress, well developed and alert Nutritional Appearance: obese Orientation/consciousness: patient oriented x3 Limitations: no limitations HEENT Head: Yes normal to inspection, Yes normocephalic and Yes atraumatic Ears: hearing grossly normal bilaterally and external ears normal Eyes General: appearance normal, both eyes and all related structures Eyelids: Yes eyelids normal Sclerae: sclerae normal EOM: EOMs intact bilaterally Neck Neck: Yes normal visual inspection and Yes no lymphadenopathy Lymphatic: no lymphadenopathy noted Chest Chest palpation & inspection: normal inspection of the chest Resp Effort & Inspection: normal respiratory effort, able to speak in complete sentences, no audible wheezes, no stridor, not tachypneic, no tripod positioning and no use of accessory muscles Auscultation: clear to auscultation bilaterally Cardio Jugular venous distension: no JVD Rate: regular rate Rhythm: regular rhythm Skin Other: warm, dry General skin exam: no rashes or lesions noted Neuro General: patient oriented x3 Cranial nerves: Yes Normal hearing present Cognition (Neuro): normal cognition Gait exam (Neuro): Normal gait present Extrem Other: 1+ pitting edema BLE Psych Appearance: grossly normal and well kempt Speech and movement: Normal speech and movement present and Clear speech present Affect: normal affect Attitude: cooperative Thought process: Normal thought process present Thought content: Normal thought content present Insight: Good insight present (Psych) Judgement: Good judgement present (Psych) Assessment & Plan Assessment & Plan (1) Asthma-COPD overlap syndrome: Code(s): J44.89 - Other specified chronic obstructive pulmonary disease (2) Decreased diffusion capacity of lung: Code(s): R94.2 - Abnormal results of pulmonary function studies (3) Cough: Code(s): R05.9 - Cough, unspecified (4) Nocturnal hypoxemia: Code(s): G47.34 - Idiopathic sleep related nonobstructive alveolar hypoventilation Plan Franco continues to report suboptimal control on current regimen. Will switch to Breztri and encouraged patient to use duoneb PRN. Respiratory exam unremarkable today, no need for prednisone. Reviewed sleep study which revealed an AHI of 66 with nocturnal hypoxemia. Will send in prescription for APAP mode and pressure settings of 6-20 cm with close monitoring for compliance and benefits. Sleep hygiene education reviewed. Will also send for overnight oximetry on room air. Patient with worsening dyspnea on exertion, BLE edema and orthopnea, will send for echo. Will also resend order for chest CT as patient with decreased DLCO on PFT, worsenind dyspnea on exertion and cough. All questions were answered and patient is in agreement of plan. Will follow up to review results and response to inhaler. Orders: Orders CT chest wo IV con Today G47.34 - Idiopathic sleep related nonobstructive alveolar hypoventilation, R05.9 - Cough, unspecified, R94.2 - Abnormal results of pulmonary function studies Overnight Pulse Oximetry Today G47.34 - Idiopathic sleep related nonobstructive alveolar hypoventilation Medications: New pjlyfujnik-qmplaoqh-eajfpcfqph 160-9-4.8 mcg/actuation (Breztri Aerosphere) 2 inhalations inhalation BID 5.9 grams 3RF Discontinued eqfxnrzosga-tethrdqkt-qxkeilho 200-62.5-25 mcg (Trelegy Ellipta) Discontinued Reason: More recent result 1 ea inhalation DAILY 60 ea 3RF Coding Level of Care Code Est Pt Level 4 (41133) Diagnoses Asthma-COPD overlap syndrome J44.89 Decreased diffusion capacity of lung R94.2 Cough R05.9 Nocturnal hypoxemia G47.34
== END 2024-02-12 10:18 | disposition home or self-care (01) ==
PROVIDERS: Visit Provider Nurse Practitioner Family
DX: J44.89 Other specified chronic obstructive pulmonary disease (principal); R94.2 Abnormal results of pulmonary function studies; R05.9 Cough, unspecified; G47.34 Idiopathic sleep related nonobstructive alveolar hypoventilation
CPT/HCPCS: 99214

== ENCOUNTER → 2024-02-12 09:35 | Outpatient (BNVA) | payer OTHER, SELFPAY | PROVIDERS: Visit Provider Nurse Practitioner Family ==

== ENCOUNTER 2024-02-26 08:00 | Outpatient (AMB) | payer OTHER, SELFPAY ==
--- NOTE | 2024-02-26 08:02 | MHC.OFFVIS ---
Vital Signs 02/26/24 08:03 Height 5 ft 11 in Weight 284 lb 6.341 oz BMI 39.7 BP 142/92 H Blood Pressure Location Lt brachial Position Sitting Pulse 92 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: Colonoscopy Screening Intake Note: Franco presents in the office as a colonoscopy screening. CC: Just due for a colonoscopy. No concerns Supervisor Central Supply Required: No Allergies acetaminophen [From Percocet] Allergy (Unknown, Verified 02/26/24 08:04) Unknown oxycodone [From Percocet] Allergy (Unknown, Verified 02/26/24 08:04) Unknown HPI HPI Colonoscopy Screening: Details: 48 year old? male here today for pre colonoscopy screening.? Patient was sent to us by his PCP.? This is his first colonoscopy screening.? Patient denies any gastrointestinal symptoms in the past or at present.? Denies any personal or family history of gastrointestinal disease, colon polyps, or cancer.? Denies history of difficulty with sedation or anesthesia in the past.? History of severe sleep apnea. Diagnosed 15 years ago uses CPAP every night. Denies any history of cardiac, renal, pulmonary, or hepatic disease.?? No history of infectious? diseases like hepatitis A, B, C, HIV or tuberculosis.? 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 needs: No Hearing needs: No Vision needs: No Review of Systems Const Denies weight gain and Denies weight loss ENT Reports no additional complaints, Denies dysphagia and Denies odynophagia Card Reports no additional complaints Resp Reports no additional complaints GI Denies abdominal pain, Denies belching, Denies melena, Denies bloating, Denies change in bowel habits, Denies dysphagia, Denies excessive flatus, Denies dyspepsia, Denies heartburn, Denies diarrhea, Denies loose stools, Denies nausea, Denies odynophagia and Denies vomiting Reports no additional complaints Musc Reports no additional complaints Neuro Reports no additional complaints Psych Reports no additional complaints Endo Reports no additional complaints Physical Exam Vital Signs: Last Vital Signs Pulse 92 02/26/24 08:03 BP 142/92 H 02/26/24 08:03 BMI result Body Mass Index 39.7 Const General: healthy appearing, no acute distress and well developed Nutritional Appearance: well nourished Orientation/consciousness: patient oriented x3 Resp Effort & Inspection: normal respiratory effort, able to speak in complete sentences, no tracheal deviation and symmetric chest movement Auscultation: clear to auscultation bilaterally Cardio Rate: regular rate GI Inspection: Yes normal to inspection and No distended Palpation (GI): Soft to palpation, not firm, nontender and No hepatosplenomegaly present Auscultation: normal bowel sounds General: Yes no CVA tenderness Back/Spine/Pelvis Back: no CVA tenderness Skin General skin exam: elasticity normal, turgor normal and dry skin Neuro General: patient oriented x3 Psych Appearance: grossly normal Mental Status: mental status grossly normal Assessment & Plan Assessment & Plan (1) Encounter for screening colonoscopy: Code(s): Z12.11 - Encounter for screening for malignant neoplasm of colon Category: Medical Plan Patient denies any GI, cardiac or respiratory symptoms. ?Denies any issues with anesthesia in the past.? Denies any history of sleep apnea.? No history infectious diseases in the past or present.? Not on any anticoagulation therapy.? No family or personal history of colon cancer or polyps.? Patient denies melena, hematochezia, unintentional weight loss or ribbon like stools.? Discussed at length the pre-procedure,? prep, diet & medications as well as what to expect prior, during and after the procedure.?? Stressed the importance of good bowel prep. ?Recommended the use of Vaseline or Calmoseptine OTC & baby wipes with bowel movements to promote comfort.? ?Patient verbalizes understanding and agrees to plan of care.? She was given the opportunity to ask questions and all questions answered.? We will see her after the procedure.? Coding Level of Care Code New Pt Level 3 (46079) Diagnoses Encounter for screening colonoscopy Z12.11 Time Spent (min) 40 Comment 30 minutes spent with patient and additional 10 minutes spent reviewing his records
[2024-02-26 08:03] VITALS: BP 142/92; PULSE 92; BMI 39.7
== END 2024-02-26 09:51 | disposition home or self-care (01) ==
PROVIDERS: Visit Provider Nurse Practitioner Family
DX: Z01.818 Encounter for other preprocedural examination (principal); Z12.11 Encounter for screening for malignant neoplasm of colon
CPT/HCPCS: S0285

== ENCOUNTER → 2024-02-26 08:00 | Outpatient (BNVA) | payer OTHER, SELFPAY | PROVIDERS: Visit Provider Nurse Practitioner Family ==

== ENCOUNTER 2024-04-14 09:40 | Outpatient (REF) | payer OTHER, SELFPAY ==
--- NOTE | ~2024-04-14 | XR_ITS ---
EXAMINATION: XR CHEST CLINICAL INFORMATION: Asthma. COMPARISON: None available. TECHNIQUE: 2 views of the chest were obtained. FINDINGS: The lateral chest wall is clipped, therefore exam is marginally incomplete. There is density obscuring the left cardiac border. This could represent atelectasis or infiltrate. There is also density in the right cardiophrenic angle which could represent atelectasis or infiltrate. I have no previous to compare. There is a possible rounded density at the right base laterally measuring 8 mm. Lung nodule cannot be excluded and would need to be considered. There is no effusion. The hilar regions are not pathologically enlarged. XR/XR chest 2V IMPRESSION: Technically limited exam and I have no previous to compare. Bilateral basilar opacities which could well represent areas of atelectasis or infiltrate and suggestion of an 8 mm nodule right base. Recommend CT to fully evaluate.
== END 2024-04-14 09:41 | disposition home or self-care (01) ==
LOC: HO.XRAY 09:40
PROVIDERS: Visit Provider Nurse Practitioner Family
DX: R05.9 Cough, unspecified (principal)
CPT/HCPCS: 71046

== ENCOUNTER 2024-04-21 09:55 | Outpatient (AMB) | payer OTHER, SELFPAY ==
[2024-04-21 09:57] VITALS: BP 124/86; PULSE 84; O2SAT 96; BMI 39.8
--- NOTE | 2024-04-21 09:57 | MHC.OFFVIS ---
Vital Signs 04/21/24 09:57 Height 5 ft 11 in Weight 285 lb 4 oz BMI 39.8 BP 124/86 Blood Pressure Location Rt brachial Position Sitting Pulse 84 Pulse Source Pulse Oximeter Pulse Oximetry (%) 96 Oxygen Delivery Method Room Air 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: dyspnea Allergies acetaminophen [From Percocet] Allergy (Unknown, Verified 04/21/24 09:59) Unknown oxycodone [From Percocet] Allergy (Unknown, Verified 04/21/24 09:59) Unknown HPI HPI dyspnea: Details: Franco is a pleasant 48 year old male, former smoker with 14 pack year history, quit 20 years ago with underlying asthma COPD overlap syndrome, allergic rhinitis, and BEST on CPAP therapy. At the last visit he reported suboptimal control with Trelegy, singulair and duoneb, and was switched to Breztri as well as combivent. He continues to report intermittent wheezing, dry cough and dyspnea with exertion, using FABIOLA frequently. Today he presents to review overnight oximetry, review results of CXR and discuss biologic therapy. 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 Cognitive needs: No Hearing needs: No Vision needs: No Review of Systems Const Denies chills, Denies excessive sweating, Denies fever(s), Denies headache(s) and Denies night sweats Eyes Denies dry eyes, Denies irritation and Denies itchy eyes ENT Reports Normal hearing present, Denies headache(s), Denies nasal congestion, Denies nasal discharge, Denies post nasal drip and Denies sore throat Card Denies chest pain, Denies chest pain at rest, Denies chest pain with activity, Denies claudication and Denies paroxysmal nocturnal dyspnea Resp Denies chest congestion, Denies excessive phlegm production, Denies pain on inspiration, Denies pain with cough and Denies stridor Musc Denies myalgias Neuro Reports Normal hearing present and Denies headache(s) Endo Denies excessive sweating Edmund/Lymph Denies lymphadenopathy Aller/Immun Denies itchy eyes and Denies seasonal rhinorrhea Physical Exam Vital Signs: Last Vital Signs Pulse 84 04/21/24 09:57 BP 124/86 04/21/24 09:57 Pulse Ox 96 04/21/24 09:57 Oxygen Delivery Method Room Air 04/21/24 09:57 BMI result Body Mass Index 39.8 Const General: cooperative, healthy appearing, comfortable, no acute distress, well developed and alert Nutritional Appearance: obese Orientation/consciousness: patient oriented x3 Limitations: no limitations HEENT Head: Yes normal to inspection, Yes normocephalic and Yes atraumatic Ears: hearing grossly normal bilaterally and external ears normal Eyes General: appearance normal, both eyes and all related structures Eyelids: Yes eyelids normal Sclerae: sclerae normal EOM: EOMs intact bilaterally Neck Neck: Yes normal visual inspection and Yes no lymphadenopathy Lymphatic: no lymphadenopathy noted Chest Chest palpation & inspection: normal inspection of the chest Resp Effort & Inspection: normal respiratory effort, able to speak in complete sentences, no audible wheezes, no stridor, not tachypneic, no tripod positioning and no use of accessory muscles Auscultation: clear to auscultation bilaterally Cardio Jugular venous distension: no JVD Rate: regular rate Rhythm: regular rhythm Skin Other: warm, dry General skin exam: no rashes or lesions noted Neuro General: patient oriented x3 Cranial nerves: Yes Normal hearing present Cognition (Neuro): normal cognition Gait exam (Neuro): Normal gait present Extrem Other: 1+ pitting edema BLE Psych Appearance: grossly normal and well kempt Speech and movement: Normal speech and movement present and Clear speech present Affect: normal affect Attitude: cooperative Thought process: Normal thought process present Thought content: Normal thought content present Insight: Good insight present (Psych) Judgement: Good judgement present (Psych) Results Reviewed Results Reviewed: Launch?Image [address] [address] XRay Report Signed Patient: Franco Myles MR#: [id number] : 1975 Acct:[id number] Age/Sex: 48 / M ADM Date: 04/14/24 Loc: [facility] Attending Dr: Desiree Degroot NP Ordering Physician: Desiree Degroot NP Date of Service: 04/14/24 Procedure(s): XR chest 2V Accession Number(s): [id number] cc: Desiree Degroot BUSINESS SUPPORT ADMINISTRATOR; Anna Lugo~ EXAMINATION: XR CHEST CLINICAL INFORMATION: Asthma. COMPARISON: None available. TECHNIQUE: 2 views of the chest were obtained. FINDINGS: The lateral chest wall is clipped, therefore exam is marginally incomplete. There is density obscuring the left cardiac border. This could represent atelectasis or infiltrate. There is also density in the right cardiophrenic angle which could represent atelectasis or infiltrate. I have no previous to compare. There is a possible rounded density at the right base laterally measuring 8 mm. Lung nodule cannot be excluded and would need to be considered. There is no effusion. The hilar regions are not pathologically enlarged. XR/XR chest 2V IMPRESSION: Technically limited exam and I have no previous to compare. Bilateral basilar opacities which could well represent areas of atelectasis or infiltrate and suggestion of an 8 mm nodule right base. Recommend CT to fully evaluate. Assessment & Plan Assessment & Plan (1) Asthma-COPD overlap syndrome: Code(s): J44.89 - Other specified chronic obstructive pulmonary disease Category: Medical (2) Decreased diffusion capacity of lung: Code(s): R94.2 - Abnormal results of pulmonary function studies Category: Medical (3) Cough: Code(s): R05.9 - Cough, unspecified Category: Medical Plan Reviewed overnight oximetry which revealed hypoxia for less than 2 minutes, nearly resolving with CPAP use. Advised to continue at this and will review compliance report at next visit. He continues to report suboptimal control on current regimen. An order for an echo was ordered at last visit for worsening dyspnea on exertion, BLE edema and orthopnea, but has not been performed yet. Will have staff reach out to ensure this will be scheduled. CXR revealed bibasilar atelectasis with question of a RLL pulmonary nodule versus infiltrate with recommendations for chest CT to further evaluate. Will enter this and hold off on biologics until resulted. All questions were answered and patient is in agreement of plan. Will follow up to review results or sooner if needed. Orders: Orders CT chest wo IV con Today R93.89 - Abnormal findings on diagnostic imaging of other specified body structures Coding Level of Care Code Est Pt Level 4 (98607) Diagnoses Asthma-COPD overlap syndrome J44.89 Decreased diffusion capacity of lung R94.2 Cough R05.9
== END 2024-04-21 10:28 | disposition home or self-care (01) ==
PROVIDERS: Visit Provider Nurse Practitioner Family
DX: J44.89 Other specified chronic obstructive pulmonary disease (principal); R94.2 Abnormal results of pulmonary function studies; R05.9 Cough, unspecified
CPT/HCPCS: 99214

== ENCOUNTER → 2024-04-21 09:55 | Outpatient (BNVA) | payer OTHER, SELFPAY | PROVIDERS: Visit Provider Nurse Practitioner Family ==

== ENCOUNTER 2024-05-06 14:00 | Outpatient (REF) | payer OTHER, SELFPAY ==
--- NOTE | ~2024-05-06 | CT_ITS ---
EXAMINATION: CT CHEST WITHOUT CONTRAST CLINICAL INFORMATION: Follow-up bibasilar opacities; cough; nocturnal hypoxemia. COMPARISON: Chest radiographs dated 04/14/2024. TECHNIQUE: Multidetector volumetric CT imaging of the chest was done. Axial MIP volume rendering provided. Sagittal and coronal reformatted images were obtained. This CT examination was performed using dose optimization techniques as appropriate, variously including the following: *Automated exposure control *Adjustment of mA and/or kV according to patient size (this includes techniques or standardized protocols for targeted exams where dose is matched to indication/reason for exam; i.e. extremities or head) *Use of iterative reconstruction technique DLP: 316 mGy-cm FINDINGS: FLAG MAKER: There is bibasilar linear scar/subsegmental atelectasis. LUNGS: There is no nodule, mass, infiltrate or groundglass opacity. There are bibasilar scattered foci of linear scar/subsegmental atelectasis, without associated focal airway obstruction. There is no generalized increase in peripheral interlobular septal markings. No bleb or bullous formation is seen. There is no generalized small airway thickening. No bronchiectasis is seen. The central airways are patent. MEDIASTINUM: The mediastinum is normal. CORONARY ARTERY CALCIFICATION: None visualized on this study. PLEURA: There is no pleural effusion. No pleural mass or thickening. AXILLA: No lymphadenopathy. UPPER ABDOMEN: There is hepatic steatosis. The adrenal glands are unremarkable. OSSEOUS STRUCTURES: There is multi-level thoracolumbar spondylosis. No acute or aggressive osseous finding is noted. CT/CT chest wo IV con IMPRESSION: There are bibasilar scattered foci of linear scar/subsegmental atelectasis, without associated focal airway obstruction. No nodule, mass, infiltrate or groundglass opacity is seen. There is no thoracic lymphadenopathy or pleural effusion. No aggressive osseous lesion is seen. Fleischner guidelines were followed.
== END 2024-05-06 14:01 | disposition home or self-care (01) ==
LOC: HO.CT 14:00
PROVIDERS: Visit Provider Nurse Practitioner Family
DX: R93.89 Abnormal findings on diagnostic imaging of other specified body structures (principal)
CPT/HCPCS: 71250

== ENCOUNTER → 2024-05-14 07:57 | Outpatient (REF) | payer OTHER, SELFPAY ==
--- NOTE | 2024-05-14 07:59 | CA_ITS ---
Transthoracic Echocardiogram Patient (Last, First, Middle): Franco Myles R Gender: Male Date of : 1975 Age: 49 Procedure Date: 05/14/2024 Procedure Type: Transthoracic Echocardiogram Location: OP Height: 180.34 cm Weight: 129.28 kg BSA: 2.45 m2 Heart Rate: bpm BP: 130 / 90 mmHg Icer Machine: TO Referring MD: Desiree Degroot [employer] SOCIAL WORKER Project Management Director: Kalia Dumont MD Symptoms: R06.00 - Dyspnea, unspecified Study Quality: Technically Difficult/Contrast ECG Rhythm: Sinus Conclusions: - 1. Normal LV ejection fraction 55-60% with impaired relaxation filling pattern 2. Cardiac valves not well visualized but cardiac valvular Doppler within normal limits 3. Mildly dilated ascending aorta 4. Small pericardial effusion Findings Procedure Information Contrast agent, definity, is being given per protocol without apparent complications. The study quality is limited by patients body habitus. Left Ventricle Normal left ventricular size, thickness, and systolic function. The visually estimated ejection fraction is between 55-60%. Spectral Doppler is indicative of an impaired relaxation filling pattern. E/E prime ratio is between 8 and 15 consistent with indeterminate filling pressures. Right Ventricle The right ventricle was not well visualized. Atria The left atrium is normal in size. Interatrial shunt cannot be excluded. The right atrium was not well visualized. Aortic Valve The aortic valve was not well visualized. There is no aortic valve stenosis. There is no aortic valve regurgitation. Mitral Valve The mitral valve was not well visualized. There is trace mitral valve regurgitation. There is no mitral valve stenosis. Pulmonic Valve The pulmonic valve was not well visualized. Tricuspid Valve The tricuspid valve was not well visualized. Tricuspid regurgitation envelope is inadequate for calculation of right ventricular systolic pressure. Normal right atrial pressure. Great Vessels The aorta was not well visualized. The pulmonary artery was not well visualized. There is mild dilatation of the ascending aorta measuring 4.10 cm. Venous The inferior vena cava is normal in size and collapses greater than 50% with inspiration. Pericardium/Pleural There is a small pericardial effusion. Prior Study Comparison No prior study available for comparison. Measurements 2D Linear Measurements IVSd: 1.13 0.6-0.9/0.6-1.0 cm LVIDd: 5.05 3.9-5.3/4.2-5.9 cm LVIDd Index: 2.06 2.4-3.2/2.2-3.1 cm/m2 LVIDs: 3.66 2.0-3.6 cm LVPWd: 1.14 0.7-1.1 cm LA Diam: 3.30 2.7-3.8/3.0-4.0 cm LAIDs Index: 1.35 1.5-2.3 cm/m2 LV Mass: 273.97 67-162/88-224 g LV Mass Index: 111.83 43-95/49-115 g/m2 LVOT Diam: 2.30 3.0+(-)1.3 cm 2D Systolic Function EF 4C: 59.60 >55% EF 2C: 57.80 >55% EF BiP: 57.00 >55% Mitral Valve MV Pk E: 0.50 MV PK A: 0.55 MV Decel Time: 177.00 E/A: 0.90 E'Lateral: 3.92 E'Medial: 5.55 E/E' Med: 9.00 E/E' Lat: 12.70 PHT: 52.00 MVA PHT: 4.23 Decel Randall: 2.80 Aortic Valve AoV Pk Link: 1.28 AoV Mn Link: 0.89 AoV VTI: 0.22 AoV Pk Grad: 7.00 Aov Mn Grad: 3.00 LUCIEN Cont.VTI: 3.13 LVOT LVOT Pk Link: 0.97 LVOT Mn Link: 0.60 LVOT VTI: 0.17 LVOT Pk Grad: 4.00 LVOT Mn Grad: 2.00 LVOT Diam: 2.30 LVOT Area: 4.15 Diastolic Function MV Pk E: 0.50 MV Pk A: 0.55 E/A: 0.90 E'Medial: 5.55 E/E' Med: 9.00 E' Laterial: 3.92 E/E' Lat: 12.70 Right Ventricle TAPSE (mm): 22.50 TVS' Link: 11.30 Tricuspid Valve RA Press: 3.00 Great Vessels Aorta Sinus of Valsalva: 3.59 2.0-3.[address] Ridge: 3.30 1.7-3.4 cm Ao Asc: 4.10 2.1-3.4 cm Updated in Other Vendor System with Status of Final Kalia Dumont MD electronically signed on 05/14/2024 2:25:15 PM with status of Final
== END ==
LOC: HO.CARD 07:57
PROVIDERS: PCP Nurse Practitioner Family; Visit Provider Nurse Practitioner Family
DX: R06.00 Dyspnea, unspecified (principal)
CPT/HCPCS: 93306; Q9957

== ENCOUNTER → 2024-05-14 07:59 | Outpatient (BNV) | payer OTHER, SELFPAY | PROVIDERS: PCP Nurse Practitioner Family; Visit Provider Internal Medicine Cardiovascular Disease | DX: R06.00 Dyspnea, unspecified (principal); R93.1 Abnormal findings on diagnostic imaging of heart and coronary circulation | CPT/HCPCS: 93306 ==

== ENCOUNTER 2024-07-22 09:13 | Outpatient (AMB) | payer OTHER, SELFPAY ==
--- NOTE | 2024-07-22 09:15 | A.OFFVIS_ITS ---
Vital Signs 07/22/24 09:16 Height 5 ft 11 in Weight 285 lb 4 oz BMI 39.8 BP 120/82 Blood Pressure Location Lt brachial Position Sitting Pulse 88 Pulse Source Pulse Oximeter Pulse Oximetry (%) 97 Oxygen Delivery Method Room Air 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: dyspnea Allergies oxycodone [From Percocet] Allergy (Unknown, Verified 07/22/24 09:18) Unknown HPI HPI dyspnea: Details: Franco is a pleasant 48 year old male, former smoker with 14 pack year history, quit 20 years ago with underlying asthma COPD overlap syndrome, allergic rhinitis, and BEST on CPAP therapy. At the last visit, he reports moderate control with current regimen of Breztri, singulair, combivent and duoneb. He reports using combivent 1-2 times per day, after moderate exertion, with good effect. Today presents to review chest CT and echo results. 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 Cognitive needs: No Hearing needs: No Vision needs: No Review of Systems Const Denies chills, Denies excessive sweating, Denies fever(s), Denies headache(s) and Denies night sweats Eyes Denies dry eyes, Denies irritation and Denies itchy eyes ENT Reports Normal hearing present, Denies headache(s), Denies nasal congestion, Denies nasal discharge, Denies post nasal drip and Denies sore throat Card Denies chest pain, Denies chest pain at rest, Denies chest pain with activity, Denies claudication, Denies leg edema, Denies dyspnea and Denies paroxysmal nocturnal dyspnea Resp Denies chest congestion, Denies excessive phlegm production, Denies pain on inspiration, Denies pain with cough, Denies dyspnea and Denies stridor Musc Denies myalgias Neuro Reports Normal hearing present and Denies headache(s) Endo Denies excessive sweating Edmund/Lymph Denies lymphadenopathy Aller/Immun Denies itchy eyes and Denies seasonal rhinorrhea Physical Exam Vital Signs: Last Vital Signs Pulse 88 07/22/24 09:16 BP 120/82 07/22/24 09:16 Pulse Ox 97 07/22/24 09:16 Oxygen Delivery Method Room Air 07/22/24 09:16 BMI result Body Mass Index 39.8 Const General: cooperative, healthy appearing, comfortable, no acute distress, well developed and alert Nutritional Appearance: obese Orientation/consciousness: patient oriented x3 Limitations: no limitations HEENT Head: Yes normal to inspection, Yes normocephalic and Yes atraumatic Ears: hearing grossly normal bilaterally and external ears normal Eyes General: appearance normal, both eyes and all related structures Eyelids: Yes eyelids normal Sclerae: sclerae normal EOM: EOMs intact bilaterally Neck Neck: Yes normal visual inspection and Yes no lymphadenopathy Lymphatic: no lymphadenopathy noted Chest Chest palpation & inspection: normal inspection of the chest Resp Effort & Inspection: normal respiratory effort, able to speak in complete sentences, no audible wheezes, no cough, no stridor, not tachypneic, no tripod positioning and no use of accessory muscles Auscultation: clear to auscultation bilaterally Cardio Jugular venous distension: no JVD Rate: regular rate Rhythm: regular rhythm Skin Other: warm, dry General skin exam: no rashes or lesions noted Neuro General: patient oriented x3 Cranial nerves: Yes Normal hearing present Cognition (Neuro): normal cognition Gait exam (Neuro): Normal gait present Extrem General: Yes normal to inspection, Yes capillary refill normal, Yes no clubbing, cyanosis or edema and Yes no pedal edema Psych Appearance: grossly normal and well kempt Speech and movement: Normal speech and movement present and Clear speech present Affect: normal affect Attitude: cooperative Thought process: Normal thought process present Thought content: Normal thought content present Insight: Good insight present (Psych) Judgement: Good judgement present (Psych) Results Reviewed Results Reviewed: [address] [address] [address] Scan Report Signed Patient: Franco Myles MR#: [id number] : 1975 Acct:[id number] Age/Sex: 49 / M ADM Date: 05/06/24 Loc: HO.CT Attending Dr: Desiree Degroot NP Ordering Physician: Desiree Degroot NP Date of Service: 05/06/24 Procedure(s): CT chest wo IV con Accession Number(s): [id number] cc: Desiree Degroot NP~ EXAMINATION: CT CHEST WITHOUT CONTRAST CLINICAL INFORMATION: Follow-up bibasilar opacities; cough; nocturnal hypoxemia. COMPARISON: Chest radiographs dated 04/14/2024. TECHNIQUE: Multidetector volumetric CT imaging of the chest was done. Axial MIP volume rendering provided. Sagittal and coronal reformatted images were obtained. This CT examination was performed using dose optimization techniques as appropriate, variously including the following: *Automated exposure control *Adjustment of mA and/or kV according to patient size (this includes techniques or standardized protocols for targeted exams where dose is matched to indication/reason for exam; i.e. extremities or head) *Use of iterative reconstruction technique DLP: 316 mGy-cm FINDINGS: PAWN SHOP KEEPER: There is bibasilar linear scar/subsegmental atelectasis. LUNGS: There is no nodule, mass, infiltrate or groundglass opacity. There are bibasilar scattered foci of linear scar/subsegmental atelectasis, without associated focal airway obstruction. There is no generalized increase in peripheral interlobular septal markings. No bleb or bullous formation is seen. There is no generalized small airway thickening. No bronchiectasis is seen. The central airways are patent. MEDIASTINUM: The mediastinum is normal. CORONARY ARTERY CALCIFICATION: None visualized on this study. PLEURA: There is no pleural effusion. No pleural mass or thickening. AXILLA: No lymphadenopathy. UPPER ABDOMEN: There is hepatic steatosis. The adrenal glands are unremarkable. OSSEOUS STRUCTURES: There is multi-level thoracolumbar spondylosis. No acute or aggressive osseous finding is noted. CT/CT chest wo IV con IMPRESSION: There are bibasilar scattered foci of linear scar/subsegmental atelectasis, without associated focal airway obstruction. No nodule, mass, infiltrate or groundglass opacity is seen. There is no thoracic lymphadenopathy or pleural effusion. No aggressive osseous lesion is seen. Fleischner guidelines were followed. Dictated By: Bret Smith MD Signed By: <Electronically signed by Bret Smith MD in OV> 05/09/24 1230 DD/ 1420 TD/TT: Polisher Hand: [address] [address] Cardiology Report Signed Patient: Franco Myles MR#: [id number] : 1975 Acct:[id number] Age/Sex: 49 / M ADM Date: 05/14/24 Loc: [facility] Attending Dr: Desiree Degroot PROCUREMENT OFFICER Ordering Physician: Desiree Degroot NP Date of Service: 05/14/24 Procedure(s): CA echo transthorac w con Accession Number(s): cc: Desiree Degroot PROCUREMENT OFFICER~ Transthoracic Echocardiogram Patient (Last, First, Middle): Franco Myles R Gender: Male Date of : 1975 Age: 49 Procedure Date: 05/14/2024 Procedure Type: Transthoracic Echocardiogram Location: OP Height: 180.34 cm Weight: 129.28 kg BSA: 2.45 m2 Heart Rate: bpm BP: 130 / 90 mmHg Process Engineer: TO Referring MD: Desiree Degroot NP Brazer Assembler: Kalia Dumont MD Symptoms: R06.00 - Dyspnea, unspecified Study Quality: Technically Difficult/Contrast ECG Rhythm: Sinus Conclusions: - 1. Normal LV ejection fraction 55-60% with impaired relaxation filling pattern 2. Cardiac valves not well visualized but cardiac valvular Doppler within normal limits 3. Mildly dilated ascending aorta 4. Small pericardial effusion Findings Procedure Information Contrast agent, definity, is being given per protocol without apparent complications. The study quality is limited by patients body habitus. Left Ventricle Normal left ventricular size, thickness, and systolic function. The visually estimated ejection fraction is between 55-60%. Spectral Doppler is indicative of an impaired relaxation filling pattern. E/E prime ratio is between 8 and 15 consistent with indeterminate filling pressures. Right Ventricle The right ventricle was not well visualized. Atria The left atrium is normal in size. Interatrial shunt cannot be excluded. The right atrium was not well visualized. Aortic Valve The aortic valve was not well visualized. There is no aortic valve stenosis. There is no aortic valve regurgitation. Mitral Valve The mitral valve was not well visualized. There is trace mitral valve regurgitation. There is no mitral valve stenosis. Pulmonic Valve The pulmonic valve was not well visualized. Tricuspid Valve The tricuspid valve was not well visualized. Tricuspid regurgitation envelope is inadequate for calculation of right ventricular systolic pressure. Normal right atrial pressure. Great Vessels The aorta was not well visualized. The pulmonary artery was not well visualized. There is mild dilatation of the ascending aorta measuring 4.10 cm. Venous The inferior vena cava is normal in size and collapses greater than 50% with inspiration. Pericardium/Pleural There is a small pericardial effusion. Prior Study Comparison No prior study available for comparison. Measurements 2D Linear Measurements IVSd: 1.13 0.6-0.9/0.6-1.0 cm LVIDd: 5.05 3.9-5.3/4.2-5.9 cm LVIDd Index: 2.06 2.4-3.2/2.2-3.1 cm/m2 LVIDs: 3.66 2.0-3.6 cm LVPWd: 1.14 0.7-1.1 cm LA Diam: 3.30 2.7-3.8/3.0-4.0 cm LAIDs Index: 1.35 1.5-2.3 cm/m2 LV Mass: 273.97 67-162/88-224 g LV Mass Index: 111.83 43-95/49-115 g/m2 LVOT Diam: 2.30 3.0+(-)1.3 cm 2D Systolic Function EF 4C: 59.60 >55% EF 2C: 57.80 >55% EF BiP: 57.00 >55% Mitral Valve MV Pk E: 0.50 MV PK A: 0.55 MV Decel Time: 177.00 E/A: 0.90 E'Lateral: 3.92 E'Medial: 5.55 E/E' Med: 9.00 E/E' Lat: 12.70 PHT: 52.00 MVA PHT: 4.23 Decel [place]: 2.80 Aortic Valve AoV Pk Link: 1.28 AoV Mn Link: 0.89 AoV VTI: 0.22 AoV Pk Grad: 7.00 Aov Mn Grad: 3.00 LUCIEN Cont.VTI: 3.13 LVOT LVOT Pk Link: 0.97 LVOT Mn Link: 0.60 LVOT VTI: 0.17 LVOT Pk Grad: 4.00 LVOT Mn Grad: 2.00 LVOT Diam: 2.30 LVOT Area: 4.15 Diastolic Function MV Pk E: 0.50 MV Pk A: 0.55 E/A: 0.90 E'Medial: 5.55 E/E' Med: 9.00 E' Laterial: 3.92 E/E' Lat: 12.70 Right Ventricle TAPSE (mm): 22.50 TVS' Link: 11.30 Tricuspid Valve RA Press: 3.00 Great Vessels Aorta Sinus of Valsalva: 3.59 2.0-3.[address] [place]: 3.30 1.7-3.4 cm Ao Asc: 4.10 2.1-3.4 cm Updated in Other Vendor System with Status of Final Kalia Dumont MD electronically signed on 05/14/2024 2:25:15 PM with status of Final Dictated By: Kalia Dumont MD Signed By: <Electronically signed by Kalia Dumont MD in OV> 05/14/24 1425 DD/ 0801 TD/TT: Polisher Hand: Assessment & Plan Assessment & Plan (1) Asthma-COPD overlap syndrome: Code(s): J44.89 - Other specified chronic obstructive pulmonary disease Category: Medical (2) Decreased diffusion capacity of lung: Code(s): R94.2 - Abnormal results of pulmonary function studies Category: Medical (3) Cough: Code(s): R05.9 - Cough, unspecified Category: Medical Plan Reviewed echo which revealed mildly decreased LVEF 55-60% with impaired filling defects, unable to fully assess all structures due to technically difficult study. At this time, he reports moderate control of symptoms and will continue his current regimen at this time. Reviewed chest CT which revealed bibasilar scattered foci of linear scar/subsegmental atelectasis, without associated focal airway obstruction. No need for further imaging at this time. All questions were answered and patient is in agreement of plan. Will follow up in three months sooner if needed. Coding Level of Care Code Est Pt Level 4 (58962) Diagnoses Asthma-COPD overlap syndrome J44.89 Decreased diffusion capacity of lung R94.2 Cough R05.9
[2024-07-22 09:16] VITALS: BP 120/82; PULSE 88; O2SAT 97; BMI 39.8
== END 2024-07-22 09:47 | disposition home or self-care (01) ==
PROVIDERS: Visit Provider Nurse Practitioner Family
DX: J44.89 Other specified chronic obstructive pulmonary disease (principal); R94.2 Abnormal results of pulmonary function studies; R05.9 Cough, unspecified
CPT/HCPCS: 99214

== ENCOUNTER → 2024-07-22 09:13 | Outpatient (BNVA) | payer OTHER, SELFPAY | PROVIDERS: Visit Provider Nurse Practitioner Family ==

== ENCOUNTER 2024-08-18 09:54 | Outpatient (AMB) | payer OTHER, SELFPAY ==
--- NOTE | 2024-08-18 09:57 | A.OFFPC_ITS ---
Vital Signs 08/18/24 10:05 Height 5 ft 11 in Weight 286 lb 4 oz BMI 39.9 BP 128/90 H Blood Pressure Location Lt brachial Position Sitting Respiration 16 Pulse 90 Pulse Source Pulse Oximeter Temp 98.2 F Temp Source Oral Pulse Oximetry (%) 96 Oxygen Delivery Method Room Air 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: 6m fu hyperlipidemia and elevated glucose Intake Note: patient here for 6 month follow up on Hypothyroidism and elevated glucose. Retail Sales Merchandiser Required: No Allergies oxycodone [From Percocet] Allergy (Unknown, Verified 08/18/24 10:16) Unknown Medication List - Last Reconciled 08/18/24 by Anna Lugo CNP albuterol sulfate 2.5 mg (3 mL) inhalation Q4-6H PRN aspirin 325 mg PO DAILY [id number] 160-9-4.8 mcg/actuation (Breztri Aerosphere) 2 inhalations inhalation BID ipratropium bromide 2 sprays intranasal BID ipratropium-albuterol 0.5 mg-3 mg(2.5 mg base)/3 mL 3 mL inhalation Q6H PRN ipratropium-albuterol 20-100 mcg/actuation (Combivent Respimat) 1 puff inhalation Q6H levothyroxine (Synthroid) 200 mcg PO DAILY 30 days montelukast 10 mg PO DAILY 90 days Tobacco use date assessed: 08/18/24 Dental Screening Dental Screen Date: 08/18/24 Did you have a dental visit in the last 12 months?: Yes Did you have a dental problem in the last 6 months where you did not have access to dental care?: No Was dental information given to patient?: Patient has dentist HPI HPI Comments History of Present Illness Details 49-year-old male presents for hypothyroi dism and elevated fasting glucose follow-up His last visit was in 01/20/2024 He admits to taking his medications as prescribed without adverse reactions He offers no complaints and denies acute symptoms at this time He forget to do blood work as planned for this visit [facility] Medical History (Updated 08/18/24 @ 10:24 by Anna Lugo CNP) BEST on CPAP Hypothyroid Asthma-COPD overlap syndrome Surgical History History of back surgery Family History Mother Lung cancer Other Diabetes Social History Housing: House Alcohol intake: never Patient Tobacco Use Status: Former Tobacco user Cigarette Packs Per Day: 1 Years Smoked: 15 e-Cigarette/Vaping Use: Never Used Second Hand Smoke Exposure: No service: No Current occupational status: employed 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 1. Little interest or pleasure in doing things: not at all 2. Feeling down, depressed, or hopeless: not at all 3. Trouble falling or staying asleep, or sleeping too much: not at all 4. Feeling tired or having little energy: not at all 5. Poor appetite or overeating: not at all 6. Feeling bad about yourself - or that you are a failure or have let yourself or your family down: not at all 7. Trouble concentrating on things, such as reading the newspaper or watching television: not at all 8. Moving or speaking so slowly that other people could have noticed. Or the opposite - being so fidgety or restless that you have been moving around a lot more than usual: not at all 9. Thoughts that you would be better off or of hurting yourself in some way: not at all Total score: 0 08703 - PHQ-9 Billing: Yes Source: Developed by Drs. Alfonso Ann, Geraldine Whipple, Karlos Morales and colleagues, with an educational isabelle from [employer]. Thrive Questionnaire Date Thrive assessed: 12/30/23 EVELIN-7 AMB Questionnaire EVELIN-7 Date EVELIN - 7 assessed: 12/30/23 Source: Developed by Drs. Alfonso Ann, Geraldine Whipple, Karlos Morales and colleagues, with an educational isabelle from [employer]. Review of Systems Const Details: Const Denies chills, Denies fatigue, Denies fever(s), Denies headache(s) and Denies weakness ENT Denies dizziness and Denies headache(s) Card Denies chest pain, Denies lightheadedness, Denies dyspnea and Denies other (Palpitations) Resp Denies cough, Denies dyspnea, Denies wheezing and Denies other ( shortness of breath) GI Denies abdominal pain, Denies melena, Denies hematochezia, Denies change in bowel habits, Denies dyspepsia and Denies nausea Denies hematuria and Denies dysuria Musc Denies abnormal gait, Denies myalgias, Denies arthralgias, Denies numbness and Denies tingling Skin/Breast Denies rash, Denies unusual bruising and Denies wounds Neuro Denies abnormal gait, Denies dizziness, Denies headache(s), Denies memory loss, Denies numbness, Denies Sensory deficit (Neuro), Denies tingling and Denies weakness Psych Denies anxiety, Denies depression, Denies memory loss Endo Denies cold intolerance, Denies fatigue, Denies heat intolerance, Denies polydipsia and Denies polyuria Aller/Immun Denies wheezing Physical exam (Primary Care) Vital Signs: Last Vital Signs Temp 98.2 F 08/18/24 10:05 Pulse 90 08/18/24 10:05 Resp 16 08/18/24 10:05 BP 128/90 H 08/18/24 10:05 Pulse Ox 96 08/18/24 10:05 Oxygen Delivery Method Room Air 08/18/24 10:05 BMI result Body Mass Index 39.9 Tobacco/Smoking Status: Tobacco use Status Tobacco use date assessed 08/18/24 08/18/24 10:04 Patient Tobacco Use Status Former Tobacco user 08/18/24 10:00 e-Cigarette/Vaping Use Never Used 08/18/24 10:00 PHQ-9: PHQ-9 Score PHQ-9: Total score 0 08/18/24 10:10 Thrive Assessment: Date of Thrive Assessment Date Thrive assessed 12/30/23 08/18/24 10:00 Const Other: General: no acute distress and well developed Nutritional Appearance: well nourished Orientation/consciousness: patient oriented x3 HENMT Head: Yes normocephalic and Yes atraumatic Eyes General: appearance normal, both eyes and all related structures Pupils: Equal, round and reactive pupils present EOM: EOMs intact bilaterally Resp Effort & Inspection: normal respiratory effort Auscultation: clear to auscultation bilaterally Cardio Rate: regular rate Rhythm: regular rhythm Heart sounds: S1 normal heart sound present, S2 normal heart sound present, no gallops, no murmurs and no rubs GI Palpation (GI): No Abdominal aortic bruit present, Soft to palpation, nontender, No hepatosplenomegaly present and No Rebound tenderness present Auscultation: normal bowel sounds General: Yes no CVA tenderness Back/Spine/Pelvis Back: no CVA tenderness Extrem General: Yes normal to inspection, No edema and No calf tenderness Skin General: warm and dry. Normal skin color. Normal skin turgor Neuro General: patient oriented x3, gait normal and no focal neuro deficit Cranial nerves: Yes Equal, round and reactive pupils present Cognition (Neuro): normal cognition Gait exam (Neuro): Normal gait present Sensory Exam: No Sensory deficit (Neuro) Psych Appearance: grossly normal Affect: normal affect Attitude: cooperative Thought process: Normal thought process present Coding Level of Care Code Est Pt Level 3 (55902) Diagnoses Elevated fasting glucose R73.01 Hypothyroidism E03.9 Elevated blood pressure reading without diagnosis of hypertension R03.0 Encounter for screening colonoscopy Z12.11 Assessment & Plan Assessment & Plan (1) Elevated fasting glucose: Code(s): R73.01 - Impaired fasting glucose Category: Medical Plan: Fasting glucose in January was slightly elevated, 101 Encouraged to get fasting blood work done. Will review recent lab results and make changes as needed Verbalized understanding and agreed with the plan (2) Hypothyroidism: Code(s): E03.9 - Hypothyroidism, unspecified Category: Medical Plan: Recent TSH level in January was normal Continue current treatment regimen Advised to get TSH/T4 blood work done as planned. Will review results and make changes as needed Follow-up in 6 months or sooner with symptoms or concerns Verbalized understanding and agreed with the plan (3) Elevated blood pressure reading without diagnosis of hypertension: Code(s): R03.0 - Elevated blood-pressure reading, without diagnosis of hypertension Category: Medical Plan: Resting blood pressure is 120/90, slightly above goal of less than 140/90 Low-sodium diet and routine exercise encouraged Follow-up with symptoms or concerns Verbalized understanding and agreed with the plan (4) Encounter for screening colonoscopy: Code(s): Z12.11 - Encounter for screening for malignant neoplasm of colon Category: Medical Plan: He notes that he has not gotten colonoscopy done and that his last appointment was canceled by the provider Encouraged to call and reschedule his colonoscopy Verbalized understanding and agreed with the plan
[2024-08-18 10:05] VITALS: BP 128/90; PULSE 90; RESP 16; TEMP 36.8; O2SAT 96; BMI 39.9
== END 2024-08-18 10:26 | disposition home or self-care (01) ==
PROVIDERS: Visit Provider Nurse Practitioner Family
DX: R73.01 Impaired fasting glucose (principal); E03.9 Hypothyroidism, unspecified; R03.0 Elevated blood-pressure reading, without diagnosis of hypertension; Z12.11 Encounter for screening for malignant neoplasm of colon

== ENCOUNTER → 2024-08-18 09:54 | Outpatient (BNVA) | payer OTHER, SELFPAY | PROVIDERS: Visit Provider Nurse Practitioner Family ==

== ENCOUNTER 2024-08-26 10:16 | Outpatient (AMB) | payer OTHER, SELFPAY ==
--- NOTE | 2024-08-26 10:17 | MHC.OFFVIS ---
Vital Signs 08/26/24 10:18 Height 5 ft 11 in Weight 284 lb 6 oz BMI 39.7 BP 122/86 Blood Pressure Location Lt brachial Position Sitting Pulse 85 Pulse Source Pulse Oximeter Pulse Oximetry (%) 96 Oxygen Delivery Method Room Air 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: dyspnea Allergies oxycodone [From Percocet] Allergy (Unknown, Verified 08/26/24 10:20) Unknown HPI HPI dyspnea: Details: Franco is a pleasant 49 year old male, former smoker with 14 pack year history, quit 20 years ago with underlying asthma COPD overlap syndrome, allergic rhinitis, and BEST on CPAP therapy. He reports moderate control with current regimen of Breztri, singulair, combivent and duoneb. He has been using albuterol/combivent infrequently. He continues to report dyspnea on exertion, attributing to decreased level of activity. He also reports dry cough over the last few days attributing to allergies. Denies wheezing or chest tightness. He denies any visits to urgent care or hospitalization. He did note significant BLE edema, but likely from dependent edema standing at work for hours and increased sodium intake. He denies associated edema with worsening dyspnea. 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 Cognitive needs: No Hearing needs: No Vision needs: No Review of Systems Const Denies chills, Denies excessive sweating, Denies fever(s), Denies headache(s) and Denies night sweats Eyes Denies dry eyes, Denies irritation and Denies itchy eyes ENT Reports Normal hearing present, Denies headache(s), Denies nasal congestion, Denies nasal discharge, Denies post nasal drip and Denies sore throat Card Denies chest pain, Denies chest pain at rest, Denies chest pain with activity, Denies claudication, Denies leg edema, Denies dyspnea and Denies paroxysmal nocturnal dyspnea Resp Denies chest congestion, Denies excessive phlegm production, Denies pain on inspiration, Denies pain with cough, Denies dyspnea and Denies stridor Musc Denies myalgias Neuro Reports Normal hearing present and Denies headache(s) Endo Denies excessive sweating Edmund/Lymph Denies lymphadenopathy Aller/Immun Denies itchy eyes and Denies seasonal rhinorrhea Physical Exam Vital Signs: Last Vital Signs Pulse 85 08/26/24 10:18 BP 122/86 08/26/24 10:18 Pulse Ox 96 08/26/24 10:18 Oxygen Delivery Method Room Air 08/26/24 10:18 BMI result Body Mass Index 39.7 Const General: cooperative, healthy appearing, comfortable, no acute distress, well developed and alert Nutritional Appearance: obese Orientation/consciousness: patient oriented x3 Limitations: no limitations HEENT Head: Yes normal to inspection, Yes normocephalic and Yes atraumatic Ears: hearing grossly normal bilaterally and external ears normal Eyes General: appearance normal, both eyes and all related structures Eyelids: Yes eyelids normal Sclerae: sclerae normal EOM: EOMs intact bilaterally Neck Neck: Yes normal visual inspection and Yes no lymphadenopathy Lymphatic: no lymphadenopathy noted Chest Chest palpation & inspection: normal inspection of the chest Resp Effort & Inspection: normal respiratory effort, able to speak in complete sentences, no audible wheezes, no cough, no stridor, not tachypneic, no tripod positioning and no use of accessory muscles Auscultation: clear to auscultation bilaterally Cardio Jugular venous distension: no JVD Rate: regular rate Rhythm: regular rhythm Skin Other: warm, dry General skin exam: no rashes or lesions noted Neuro General: patient oriented x3 Cranial nerves: Yes Normal hearing present Cognition (Neuro): normal cognition Gait exam (Neuro): Normal gait present Extrem General: Yes normal to inspection, Yes capillary refill normal, Yes no clubbing, cyanosis or edema and Yes no pedal edema Psych Appearance: grossly normal and well kempt Speech and movement: Normal speech and movement present and Clear speech present Affect: normal affect Attitude: cooperative Thought process: Normal thought process present Thought content: Normal thought content present Insight: Good insight present (Psych) Judgement: Good judgement present (Psych) Assessment & Plan Assessment & Plan (1) Asthma-COPD overlap syndrome: Code(s): J44.89 - Other specified chronic obstructive pulmonary disease Category: Medical (2) Decreased diffusion capacity of lung: Code(s): R94.2 - Abnormal results of pulmonary function studies Category: Medical (3) Cough: Code(s): R05.9 - Cough, unspecified Category: Medical Plan Advised to continue current regimen and if symptoms worsen to call office. He reports dry cough over the last few days however attributes to allergies, encouraged use of antihistamine. Had long discussion regarding sodium intake, use of compression stockings and elevating legs to decreased BLE edema. He is aware if dyspnea worsens with associated BLE edema to call office. All questions were answered and patient is in agreement of plan. Will follow up in 8-10 weeks sooner if needed. Coding Level of Care Code Est Pt Level 3 (09357) Diagnoses Asthma-COPD overlap syndrome J44.89 Decreased diffusion capacity of lung R94.2 Cough R05.9
[2024-08-26 10:18] VITALS: BP 122/86; PULSE 85; O2SAT 96; BMI 39.7
== END 2024-08-26 10:39 | disposition home or self-care (01) ==
PROVIDERS: PCP Nurse Practitioner Family; Visit Provider Nurse Practitioner Family
DX: J44.89 Other specified chronic obstructive pulmonary disease (principal); R94.2 Abnormal results of pulmonary function studies; R05.9 Cough, unspecified
CPT/HCPCS: 99213

== ENCOUNTER → 2024-08-26 10:16 | Outpatient (BNVA) | payer OTHER, SELFPAY | PROVIDERS: Visit Provider Nurse Practitioner Family ==

== ENCOUNTER 2024-08-26 11:02 | Outpatient (REF) | payer OTHER, SELFPAY ==
[2024-08-26 14:21] LABS: MANUAL DIFF FLAG NO
[2024-08-26 14:22] LABS: Appearance Urine Clear; Color Urine Yellow; Glucose Urine UA Negative (Negative); Leukocyte Esterase Urine Negative (Negative); Nitrite Urine Negative (Negative); Specific Gravity - Urine 1.025 (1.005-1.025); Urine Blood Negative (Negative); Urine Ketones Trace mg/dL (Negative); Urine Protein Negative (Neg-Trace)
[2024-08-26 14:32] LABS: Basophils Absolute Auto 0.1 X10*3/uL (0.0-0.2); Basophils Percent Auto 0.7 % (0-2); Eosinophils Absolute Auto 0.2 X10*3/uL (0.0-0.4); Eosinophils Percent Auto 2.8 % (0-4); Hematocrit 46.1 % (42.0-52.0); Hemoglobin 15.5 g/dl (14.0-18.0); Imm Gran Abs Auto 0.02 X10*3/uL (0.00-0.03); Imm Gran Pct Auto 0.3 % (0.0-0.4); Lymphocytes Absolute Auto 1.5 X10*3/uL (1.2-4.9); Lymphocytes Percent Auto 21.3 % (20-40); Mean Corpuscular HGB Conc 33.6 g/dl (31.0-36.0); Mean Corpuscular Hemoglobin 27.9 pg (27.0-33.0); Mean Corpuscular Volume 82.9 fL (80.0-98.0); Mean Platelet Volume 10.7 fL (9.4-12.4); Monocytes Absolute Auto 0.6 X10*3/uL (0.1-1.2); Monocytes Percent Auto 8.5 % (2-11); Neutrophils Absolute Auto 4.5 x10*3/uL (2.0-8.3); Neutrophils Percent Auto 66.4 % (45-73); Platelet Count 233 X10*3/uL (160-400); Red Blood Count 5.56 X10*6/uL (4.60-5.80); Red Cell Distribution Width 13.2 % (11.0-16.0); White Blood Count 6.8 X10*3/uL (4.8-10.8)
[2024-08-26 15:03] LABS: Alanine Aminotransferase 72 U/L (0-40); Albumin Level 4.3 g/dL (3.5-5.0); Alkaline Phosphatase 71 U/L (39-117); Anion Gap 10 (12-20); Aspartate Amino Transferase 38 U/L (5-37); Bilirubin Total 0.5 mg/dL (0.0-1.0); Blood Urea Nitrogen 18 mg/dL (9-16); Calcium 9.9 mg/dL (8.4-10.2); Carbon Dioxide 28 mmol/L (22-29); Chloride 106 mmol/L (96-108); Cholesterol 179 mg/dL (<200); Estimated Glomerular Filt Rate > 60; Glucose Fasting 88 mg/dL (60-99); HDL Cholesterol 46 mg/dL (>40); LDL Cholesterol Calculated 112 mg/dL (<100); Potassium 4.1 mmol/L (3.3-5.1); Sodium 140 mmol/L (135-145); Total Protein 7.4 g/dL (6.5-8.0); Triglycerides 109 mg/dL (<150)
[2024-08-26 15:49] LABS: Free T4 (Free Thyroxine) 1.29 ng/dL (0.71-1.85)
== END 2024-08-26 11:03 | disposition home or self-care (01) ==
LOC: HO.WFDLDS 11:02
PROVIDERS: Visit Provider Nurse Practitioner Family
DX: Z00.00 Encounter for general adult medical examination without abnormal findings (principal); E03.9 Hypothyroidism, unspecified; Z12.5 Encounter for screening for malignant neoplasm of prostate
CPT/HCPCS: 36415; 80053; 80061; 81003; 84153; 84439; 84443; 85025

== ENCOUNTER 2024-10-21 08:58 | Outpatient (AMB) | payer OTHER, SELFPAY ==
--- NOTE | 2024-10-21 08:59 | A.OFFVIS_ITS ---
Vital Signs 10/21/24 09:00 Height 5 ft 11 in Weight 285 lb 4 oz BMI 39.8 BP 134/86 Blood Pressure Location Lt brachial Position Sitting Pulse 96 Pulse Source Pulse Oximeter Pulse Oximetry (%) 95 Oxygen Delivery Method Room Air 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: dyspnea Allergies oxycodone [From Percocet] Allergy (Unknown, Verified 10/21/24 09:03) Unknown HPI HPI dyspnea: Details: Franco is a pleasant 49 year old male, former smoker with 14 pack year history, quit 20 years ago with underlying asthma COPD overlap syndrome, allergic rhinitis, and BEST on CPAP therapy. He reports moderate control with current regimen of Breztri, singulair, combivent and duoneb, using DuoNeb/albuterol MDI frequently. He continues to report dyspnea on exertion, dry cough, chest tightness and wheezing. Of note, he was recently treated for reportedly LLL PNA with doxy, zpak and prednisone in September. 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 Cognitive needs: No Hearing needs: No Vision needs: No Review of Systems Const Denies chills, Denies excessive sweating, Denies fever(s), Denies headache(s) and Denies night sweats Eyes Denies dry eyes, Denies irritation and Denies itchy eyes ENT Reports Normal hearing present, Denies headache(s), Denies nasal congestion, Denies nasal discharge, Denies post nasal drip and Denies sore throat Card Denies chest pain, Denies chest pain at rest, Denies chest pain with activity, Denies claudication, Denies leg edema, Reports dyspnea on exertion and Denies paroxysmal nocturnal dyspnea Resp Denies chest congestion, Reports cough, Denies excessive phlegm production, Denies pain on inspiration, Denies pain with cough, Reports dyspnea on exertion, Denies stridor and Reports wheezing Musc Denies myalgias Neuro Reports Normal hearing present and Denies headache(s) Endo Denies excessive sweating Edmund/Lymph Denies lymphadenopathy Aller/Immun Denies itchy eyes, Denies seasonal rhinorrhea and Reports wheezing Physical Exam Vital Signs: Last Vital Signs Pulse 96 10/21/24 09:00 BP 134/86 10/21/24 09:00 Pulse Ox 95 10/21/24 09:00 Oxygen Delivery Method Room Air 10/21/24 09:00 BMI result Body Mass Index 39.8 Const General: cooperative, healthy appearing, comfortable, no acute distress, well developed and alert Nutritional Appearance: obese Orientation/consciousness: patient oriented x3 Limitations: no limitations HEENT Head: Yes normal to inspection, Yes normocephalic and Yes atraumatic Ears: hearing grossly normal bilaterally and external ears normal Eyes General: appearance normal, both eyes and all related structures Eyelids: Yes eyelids normal Sclerae: sclerae normal EOM: EOMs intact bilaterally Neck Neck: Yes normal visual inspection and Yes no lymphadenopathy Lymphatic: no lymphadenopathy noted Chest Chest palpation & inspection: normal inspection of the chest Resp Effort & Inspection: normal respiratory effort, able to speak in complete sentences, no audible wheezes, no cough, no stridor, not tachypneic, no tripod positioning and no use of accessory muscles Auscultation: no crackles, no wheezes and diminished lung sounds (bases) Cardio Jugular venous distension: no JVD Rate: regular rate Rhythm: regular rhythm Skin Other: warm, dry General skin exam: no rashes or lesions noted Neuro General: patient oriented x3 Cranial nerves: Yes Normal hearing present Cognition (Neuro): normal cognition Gait exam (Neuro): Normal gait present Extrem General: Yes normal to inspection, Yes capillary refill normal, Yes no clubbing, cyanosis or edema and Yes no pedal edema Psych Appearance: grossly normal and well kempt Speech and movement: Normal speech and movement present and Clear speech present Affect: normal affect Attitude: cooperative Thought process: Normal thought process present Thought content: Normal thought content present Insight: Good insight present (Psych) Judgement: Good judgement present (Psych) Assessment & Plan Assessment & Plan (1) Severe persistent asthma: Code(s): J45.50 - Severe persistent asthma, uncomplicated Category: Medical (2) Asthma-COPD overlap syndrome: Code(s): J44.89 - Other specified chronic obstructive pulmonary disease Category: Medical (3) Cough: Code(s): R05.9 - Cough, unspecified Category: Medical (4) BEST on CPAP: Code(s): G47.33 - Obstructive sleep apnea (adult) (pediatric) Category: Medical Plan Franco continues to report suboptimal effect with current regimen, using albuterol/Duoneb frequently. Discussed risks associated with overuse of albuterol/DuoNeb. Previously we reviewed possible biologics and would like to proceed at this time. Will send order for Tezspire and follow up with patient in 2-3 months, or sooner if needed. Will also send for repeat CXR in two weeks to assess resolution of PNA. Patient currently on CPAP therapy, machine >5 years old, has not heard back from [facility], despite order being placed months prior. Will reach out to [facility]. All questions were answered and patient is in agreement of plan. Will follow up in 8-10 weeks sooner if needed. Coding Level of Care Code Est Pt Level 4 (21783) Diagnoses Severe persistent asthma J45.50 Asthma-COPD overlap syndrome J44.89 Cough R05.9 BEST on CPAP G47.33
[2024-10-21 09:00] VITALS: BP 134/86; PULSE 96; O2SAT 95; BMI 39.8
== END 2024-10-21 09:45 | disposition home or self-care (01) ==
PROVIDERS: PCP Nurse Practitioner Family; Visit Provider Nurse Practitioner Family
DX: J45.50 Severe persistent asthma, uncomplicated (principal); J44.89 Other specified chronic obstructive pulmonary disease; R05.9 Cough, unspecified; G47.33 Obstructive sleep apnea (adult) (pediatric)
CPT/HCPCS: 99214

== ENCOUNTER 2025-01-19 10:04 | Outpatient (AMB) | payer OTHER, SELFPAY ==
--- NOTE | 2025-01-19 10:10 | MHC.OFFVIS ---
Vital Signs 01/19/25 10:13 Height 5 ft 11 in Weight 286 lb BMI 39.9 BP 138/82 Blood Pressure Location Rt brachial Position Sitting Pulse 95 Pulse Source Pulse Oximeter Pulse Oximetry (%) 98 Oxygen Delivery Method Room Air 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: dyspnea Investment Officer Required: No Allergies oxycodone [From Percocet] Allergy (Unknown, Verified 01/22/25 08:37) Unknown Medication List - Last Reconciled 01/19/25 by Tessie Diaz, PORTAL ARCHITECT albuterol sulfate 2.5 mg (3 mL) inhalation Q4-6H PRN aspirin 325 mg PO DAILY [id number] 160-9-4.8 mcg/actuation (Breztri Aerosphere) 2 inhalations inhalation BID ipratropium bromide 2 sprays intranasal BID ipratropium-albuterol 0.5 mg-3 mg(2.5 mg base)/3 mL 3 mL inhalation Q6H PRN ipratropium-albuterol 20-100 mcg/actuation (Combivent Respimat) 1 puff inhalation Q6H levothyroxine (Synthroid) 175 mcg PO DAILY 30 days montelukast 10 mg PO DAILY 90 days HPI HPI dyspnea: Details: Franco is a pleasant 49 year old male, former smoker with 14 pack year history, quit 20 years ago with underlying asthma COPD overlap syndrome, allergic rhinitis, and BEST on CPAP therapy. He reports moderate control with current regimen of Breztri, singulair, combivent and duoneb, using DuoNeb/albuterol MDI frequently. He continues to report dyspnea on exertion, dry cough, chest tightness and wheezing. He recently treated for reportedly LLL PNA with doxy, zpak and prednisone in September and again in December for bronchitic symptoms with prednisone. Patient has had suboptimal on current regimen and after further discussion agreed to move forward with [facility] to see if he would have improved respiratory control. Unfortunately this was denied by insurance. Since the last visit, he has developed exertional chest pain and has not been evaluated by cardiology. Of note, he previously reported BLE edema and occasional orthopnea, was sent for echo which revealed mild decrease in LVEF 55-60%. [facility] Medical History (Updated 01/25/25 @ 20:09 by Desiree Degroot NP) BEST on CPAP Hypothyroid Asthma-COPD overlap syndrome Surgical History History of back surgery Family History Mother Lung cancer Other Diabetes Social History Housing: House Alcohol intake: never Patient Tobacco Use Status: Former Tobacco user Cigarette Packs Per Day: 1 Years Smoked: 15 Smoked in Last 30 Days: No e-Cigarette/Vaping Use: Never Used Second Hand Smoke Exposure: No Use of substances other than those prescribed or required for medical reasons: No Advance Directives: No Advance Directives Information Provided: No Do you have a plan to hurt others: No Plan service: No Current occupational status: employed 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 Cognitive needs: No Hearing needs: No Vision needs: No Review of Systems Const Denies chills, Denies excessive sweating, Denies fever(s), Denies headache(s) and Denies night sweats Eyes Denies dry eyes, Denies irritation and Denies itchy eyes ENT Reports Normal hearing present, Denies headache(s), Denies nasal congestion, Denies nasal discharge, Denies post nasal drip and Denies sore throat Card Denies chest pain, Denies chest pain at rest, Denies chest pain with activity, Denies claudication, Reports leg edema, Reports dyspnea on exertion, Reports orthopnea and Denies paroxysmal nocturnal dyspnea Resp Denies chest congestion, Reports cough, Denies excessive phlegm production, Denies pain on inspiration, Denies pain with cough, Reports dyspnea on exertion, Denies stridor and Reports wheezing Musc Denies myalgias Neuro Reports Normal hearing present and Denies headache(s) Endo Denies excessive sweating Edmund/Lymph Denies lymphadenopathy Aller/Immun Denies itchy eyes, Denies seasonal rhinorrhea and Reports wheezing Physical Exam Vital Signs: Last Vital Signs Pulse 95 01/19/25 10:13 BP 138/82 01/19/25 10:13 Pulse Ox 98 01/19/25 10:13 Oxygen Delivery Method Room Air 01/19/25 10:13 BMI result Body Mass Index 39.9 Const General: cooperative, healthy appearing, comfortable, no acute distress, well developed and alert Nutritional Appearance: obese Orientation/consciousness: patient oriented x3 Limitations: no limitations HEENT Head: Yes normal to inspection, Yes normocephalic and Yes atraumatic Ears: hearing grossly normal bilaterally and external ears normal Eyes General: appearance normal, both eyes and all related structures Eyelids: Yes eyelids normal Sclerae: sclerae normal EOM: EOMs intact bilaterally Neck Neck: Yes normal visual inspection and Yes no lymphadenopathy Lymphatic: no lymphadenopathy noted Chest Chest palpation & inspection: normal inspection of the chest Resp Effort & Inspection: normal respiratory effort, able to speak in complete sentences, no audible wheezes, no cough, no stridor, not tachypneic, no tripod positioning and no use of accessory muscles Auscultation: no crackles, no wheezes and diminished lung sounds (bases) Cardio Jugular venous distension: no JVD Rate: regular rate Rhythm: regular rhythm Skin Other: warm, dry General skin exam: no rashes or lesions noted Neuro General: patient oriented x3 Cranial nerves: Yes Normal hearing present Cognition (Neuro): normal cognition Gait exam (Neuro): Normal gait present Extrem General: Yes normal to inspection, Yes capillary refill normal, Yes no clubbing, cyanosis or edema and Yes no pedal edema Psych Appearance: grossly normal and well kempt Speech and movement: Normal speech and movement present and Clear speech present Affect: normal affect Attitude: cooperative Thought process: Normal thought process present Thought content: Normal thought content present Insight: Good insight present (Psych) Judgement: Good judgement present (Psych) Assessment & Plan Assessment & Plan (1) Severe persistent asthma: Code(s): J45.50 - Severe persistent asthma, uncomplicated Category: Medical (2) Asthma-COPD overlap syndrome: Code(s): J44.89 - Other specified chronic obstructive pulmonary disease Category: Medical (3) Cough: Code(s): R05.9 - Cough, unspecified Category: Medical (4) BEST on CPAP: Code(s): G47.33 - Obstructive sleep apnea (adult) (pediatric) Category: Medical (5) Exertional chest pain: Code(s): R07.9 - Chest pain, unspecified Category: Medical Plan Franco continues to report suboptimal effect with current regimen, using albuterol/Duoneb frequently. Discussed risks associated with overuse of albuterol/DuoNeb. Attempted Tezspire however denied by insurance. Since the last visit, patient with exertional chest pain, will enter referral to cardiology for potential stress test. We discussed signs/symptoms of when to seek emergent care. If no significant findings, will attempt Xolair as patient with +RAST and IgE 67. Reviewed compliance report and patient has been using CPAP therapy >4 hours for 100% of the time, average AHI 1.7, with minimal leaks. Patient is benefitting and motivated to be compliant with therapy. All questions were answered and patient is in agreement of plan. Will follow up after cardiology evaluation or sooner if needed. Orders: Referrals Cardiology Referral R06.09 - Other forms of dyspnea, R07.9 - Chest pain, unspecified Coding Level of Care Code Est Pt Level 4 (81690) Diagnoses Severe persistent asthma J45.50 Asthma-COPD overlap syndrome J44.89 Cough R05.9 BEST on CPAP G47.33 Exertional chest pain R07.9
[2025-01-19 10:13] VITALS: BP 138/82; PULSE 95; O2SAT 98; BMI 39.9
== END 2025-01-19 10:36 | disposition home or self-care (01) ==
LOC: HO.HPSW 10:04
PROVIDERS: PCP Nurse Practitioner Family; Visit Provider Nurse Practitioner Family
DX: J45.50 Severe persistent asthma, uncomplicated (principal); J44.89 Other specified chronic obstructive pulmonary disease; R05.9 Cough, unspecified; G47.33 Obstructive sleep apnea (adult) (pediatric); R07.9 Chest pain, unspecified
CPT/HCPCS: 99214

== ENCOUNTER 2025-01-22 08:31 | Emergency (ER) | payer OTHER, SELFPAY ==
--- NOTE | ~2025-01-22 | US_ITS ---
EXAMINATION: US LOWER EXTREMITY VEINS LIMITED FOLLOW UP LEFT HISTORY: calf pain COMPARISON: There are no prior studies for comparison. TECHNIQUE: Duplex and color Doppler sonographic examination of the deep venous system of the left lower extremity was performed. FINDINGS: The common femoral, superficial femoral, and popliteal veins are patent demonstrating normal compressibility, spontaneous flow, and augmentation. There is a normal color and spectral Doppler waveform appearance of the visualized deep venous system above the knee. The posterior tibial veins are patent. There is limited visualization of the peroneal veins. US/US venous duplex LE LT IMPRESSION: No evidence of acute DVT in the left lower extremity. Electronically signed by: Alfonso Hernandez MD 01/22/2025 10:26 AM EDT RP
--- NOTE | ~2025-01-22 | XR_ITS ---
EXAMINATION: XR FOOT 3 OR MORE VIEWS LEFT HISTORY: pain COMPARISON: There are no prior studies available for comparison. FINDINGS: Three views of the left foot are submitted. Osseous mineralization is normal. There is no fracture or dislocation. There are degenerative changes involving the DIP joints of the toes. The soft tissues are unremarkable. XR/XR foot LT min 3V IMPRESSION: Degenerative changes of the DIP joints. Electronically signed by: Alfonso Hernandez MD 01/22/2025 09:32 AM EDT
[2025-01-22 08:33] VITALS: BP 146/86; PULSE 110; RESP 20; TEMP 36.7; O2SAT 96; BMI 39.8
--- NOTE | 2025-01-22 09:38 | ED_ITS ---
HPI - Extremity Problem General Chief complaint: Extremity Injury, Lower Stated complaint: L foot pain Time Seen by Provider: 01/22/25 09:37 Source: patient Mode of arrival: ambulatory Limitations: no limitations History of Present Illness ED Provider: Kobe Nguyen PA-C HPI Narrative: 49 yo male with history of obesity, asthma, BEST on CPAP, hypothyroidism who presents to the ER for evaluation of left great toe pain that radiates to the foot and the back of the leg. He states it started 2 days ago, no injury or trauma. He reports the pain is worse with plantarflexion and weight bearing. It is very painful to move the toe. It is slightly warm but not red. no fevers. no open wounds. no hisotry of DM or gout. MD Complaint: extremity pain Onset (ago): day(s) Pain Consistency: constant Location: left and lower extremity Severity scale (1-10): 6 Quality: stabbing and aching Radiation: proximal Relieving factors: rest Exacerbating factors: range of motion, weight bearing and palpation Associated symptoms: denies other symptoms Related Data Home Medications ?Medication ?Instructions ?Recorded ?Confirmed aspirin 325 mg tablet 325 mg PO DAILY 06/04/23 01/19/25 Previous Rx's ?Medication ?Instructions ?Recorded albuterol sulfate 2.5 mg/3 mL 2.5 mg (3 mL) inhalation Q4-6H PRN 07/17/23 (0.083 %) solution for nebulization shortness of breath or wheezing #90 mL ipratropium bromide 21 mcg (0.03 2 spray intranasal BID #30 mL 12/03/23 %) nasal spray budesonide 160 mcg-glycopyr 9 2 inh inhalation BID #5.9 grams 06/08/24 mcg-formot 4.8 mcg/actuation HFA inhaler (Breztri Aerosphere) ipratropium 20 mcg-albuterol 100 1 puff inhalation Q6H #4 grams 06/08/24 mcg/actuation mist for inhalation (Combivent Respimat) montelukast 10 mg tablet 10 mg PO DAILY 90 days #90 tabs 07/30/24 ipratropium 0.5 mg-albuterol 3 mg 3 ml inhalation Q6H PRN for 11/30/24 (2.5 mg base)/3 mL nebulization wheezing #180 mL soln levothyroxine 175 mcg tablet 175 mcg PO DAILY 30 days #30 tabs 12/28/24 (Synthroid) prednisone 10 mg tablets in a dose See Taper PO DAILY #30 ea 01/22/25 pack Allergies Allergy/AdvReac Type Severity Reaction Status Date / Time oxycodone [From Percocet] Allergy Unknown Unknown Verified 01/22/25 08:37 Review of Systems 2 Review of Systems: Yes all other systems are reviewed and are negative [facility] Past Medical History Medical History (Updated 01/22/25 @ 10:46 by PRANAY Estrada) BEST on CPAP Hypothyroid Asthma-COPD overlap syndrome Surgical History History of back surgery Family History Family History Mother Lung cancer Other Diabetes Social History Social History Housing: House Alcohol intake: never Patient Tobacco Use Status: Former Tobacco user Cigarette Packs Per Day: 1 Years Smoked: 15 Smoked in Last 30 Days: No e-Cigarette/Vaping Use: Never Used Second Hand Smoke Exposure: No Use of substances other than those prescribed or required for medical reasons: No Advance Directives: No Advance Directives Information Provided: No Do you have a plan to hurt others: No Plan service: No Current occupational status: employed 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 Oriented X3. No acute distress. HEENT: normal inspection CVS: Normal heart rate and rhythm. Pulses normal. Respiratory: No respiratory distress. Skin: Skin warm and dry. Normal skin color. Normal skin turgor. No rashes. Extremities: left foot held in flexion, mild warmth and erythema to the base of the great toe with extreme tenderness with passive ROM of the toe joint. tenderness on the plantar aspect of the 1st metatarsal as well without open wounds or skin changes. pain with plantarflexion. 2+ DP/PD pulses. no calf swelling or tenderness. no left ankle ankle swelling. Neuro: Oriented X 3. No motor deficit. No sensory deficit. gait not tested due to pain Medications Administered Discontinued Medications Generic Name Dose Route Start Last Admin Trade Name Flashq PRN Reason Stop Dose Admin Ketorolac Tromethamine 30 mg 01/22/25 09:42 01/22/25 09:54 Ketorolac Tromethamine 30 Mg/Ml Vial IM 01/22/25 09:43 30 mg ONCE ONE Administration Prednisone 50 mg 01/22/25 09:42 01/22/25 09:53 Prednisone 10 Mg Tablet PO 01/22/25 09:43 50 mg ONCE ONE Administration Medical Decision Making Medical Decision Making [facility] Narrative: 49 yo male presenting to the ER for evaluation of atraumatic left great toe pain that radiates to the foot and up the leg. pain has been worsening for the last 3 days. exam is c/w gout of the great toe. xr with some mild degenerative changes. no leukocytosis on labs. uric acid slightly elevated. he has history of unprovoked PE in 2009 and is no longer on coumadin. US LLE negative for DVT given prednisone and toradol with improvement in his pain will treat with prednisone taper for acute gout stable for d/c home Differential Diagnosis Differential Diagnoses: The differential diagnosis associated with the presentation includes gout, septic joint, cellulitis, inflammatory arthritis, fracture, tendonitis Lab Data [facility] Lab Attestation statement: I reviewed the patient's lab results. no leukocytosis 01/22/25 10:03 01/22/25 10:03 Labs: Lab Results 01/22/25 01/22/25 Range/Units 10:03 10:04 WBC 9.6 (4.8-10.8) X10*3/uL RBC 5.44 (4.60-5.80) X10*6/uL Hgb 15.5 (14.0-18.0) g/dl Hct 44.5 (42.0-52.0) % MCV 81.8 (80.0-98.0) fL MCH 28.5 (27.0-33.0) pg MCHC 34.8 (31.0-36.0) g/dl RDW 13.2 (11.0-16.0) % Plt Count 219 (160-400) X10*3/uL MPV 10.0 (9.4-12.4) fL Immature Gran % (Auto) 0.4 (0.0-0.4) % Neut % (Auto) 72.1 (45-73) % Lymph % (Auto) 16.1 L (20-40) % [place] % (Auto) 9.5 (2-11) % Eos % (Auto) 1.3 (0-4) % Baso % (Auto) 0.6 (0-2) % Lymph # (Auto) 1.5 (1.2-4.9) X10*3/uL [place] # (Auto) 0.9 (0.1-1.2) X10*3/uL Eos # (Auto) 0.1 (0.0-0.4) X10*3/uL Baso # (Auto) 0.1 (0.0-0.2) X10*3/uL Abs Immat Gran (auto) 0.04 H (0.00-0.03) X10*3/uL Absolute Neuts (auto) 6.9 (2.0-8.3) x10*3/uL Absolute Nucleated RBC 0.000 (0.0-0.012) X10*3/uL Nucleated RBC % (auto) 0.0 (0.0-0.2) /100WBC ESR 14 (0-15) MM/HR Sodium 138 (135-145) mmol/L Potassium 3.8 (3.3-5.1) mmol/L Chloride 104 (96-108) mmol/L Carbon Dioxide 26 (22-29) mmol/L Anion Gap 12 (12-20) BUN 15 (9-16) mg/dL Creatinine 1.02 (0.5-1.4) mg/dL Estim Creat Clear Calc 117.5 Estimated GFR > 60 Random Glucose 98 (60-115) mg/dL Uric Acid 7.1 H (3.4-7.0) mg/dL Calcium 9.3 D (8.4-10.2) mg/dL Magnesium 2.0 (1.6-2.6) mg/dL Total Bilirubin 0.4 (0.0-1.0) mg/dL Direct Bilirubin 0.1 (0.0-0.5) mg/dL AST 29 (5-37) U/L ALT 53 H (0-40) U/L Alkaline Phosphatase 75 (39-117) U/L C-Reactive Protein 0.88 H (< or = 0.50) mg/dL Total Protein 7.7 (6.5-8.0) g/dL Albumin 4.3 (3.5-5.0) g/dL Independent Interpretation I performed an independent interpretation of an: Plain X-Ray and Ultrasound Interpretation: no acute DVT XR without acute fracture or dislocation Radiology Impression Discussion of test interpretation with radiology: I have reviewed the radiologist's reading. Independent Historian Clinical information obtained from an independent historian. History obtained from or confirmed by: Spouse External Record Review External record reviewed: Prior outpatient labs and Prior outpatient radiology Prescription Management I considered prescription management with: Pain Medication, Antibiotic and Other (steroids) Chronic Conditions Patient?s care impacted by: Other (obesity) Critical Care Time Critical Care Time Critical Care Time: No Discharge Plan Discharge Clinical Impression: Gout Qualifiers: Gout site: toe Gout etiology: idiopathic Chronicity: acute Laterality: left Q ualified Code(s): M10.072 - Idiopathic gout, left ankle and foot Patient Disposition: Home, Self-Care Instructions: Low Purine Diet (ED), Gout (ED) Additional Instructions: take the prescribed prednisone taper as directed - start it tomorrow morning and complete the entire course follow up with your doctor If you develop new or worsening symptoms call 911 or come back to the ER for further evaluation. Prescriptions: New prednisone 10 mg tablets,dose pack See Taper PO DAILY Qty: 30 0RF Taper: Prednisone 40 mg daily for 3 Days and 0 Hour 30 mg daily for 3 Days and 0 Hour 20 mg daily for 3 Days and 0 Hour 10 mg daily for 3 Days and 0 Hour Rx Instructions: 40 mg Daily x3 days, 30 mg daily x3 days, 20 mg daily x3 days, 10 mg daily x3 days No Action Combivent Respimat 20-100 mcg/actuation mist 1 puff inhalation Q6H Qty: 4 3RF Breztri Aerosphere 160-9-4.8 mcg/actuation HFA aerosol inhaler 2 inh inhalation BID Qty: 5.9 3RF montelukast 10 mg tablet 10 mg PO DAILY 90 Days Qty: 90 3RF ipratropium-albuterol 0.5 mg-3 mg(2.5 mg base)/3 mL solution for nebulization 3 ml inhalation Q6H PRN (Reason: for wheezing) Qty: 180 2RF levothyroxine [Synthroid] 175 mcg tablet 175 mcg PO DAILY 30 Days Qty: 30 3RF Rx Instructions: Synthroid - no substitution aspirin 325 mg tablet 325 mg PO DAILY albuterol sulfate 2.5 mg /3 mL (0.083 %) solution for nebulization 2.5 mg inhalation Q4-6H PRN (Reason: shortness of breath or wheezing) Qty: 90 0RF ipratropium bromide 21 mcg (0.03 %) spray,non-aerosol 2 spray intranasal BID Qty: 30 3RF Rx Instructions: administer into each nostril Referrals: Anna Lugo, AUDREY [Primary Care Provider] - Stand Alone Forms: Work/School Release Interventions: ED Discharge Assessment Last Done: 01/22/25 11:05 Discharge Date/Time: 01/22/25 11:08 Print Language: Burmese
[2025-01-22] MEDS: predniSONE 10 MG TABLET 50 MG PO (09:53)
[2025-01-22] MEDS: Ketorolac Tromethamine 30 MG/ML VIAL IM (09:54)
[2025-01-22 10:10] LABS: MANUAL DIFF FLAG NO
[2025-01-22 10:11] LABS: Basophils Absolute Auto 0.1 X10*3/uL (0.0-0.2); Basophils Percent Auto 0.6 % (0-2); Eosinophils Absolute Auto 0.1 X10*3/uL (0.0-0.4); Eosinophils Percent Auto 1.3 % (0-4); Hematocrit 44.5 % (42.0-52.0); Hemoglobin 15.5 g/dl (14.0-18.0); Imm Gran Abs Auto 0.04 X10*3/uL (0.00-0.03); Imm Gran Pct Auto 0.4 % (0.0-0.4); Lymphocytes Absolute Auto 1.5 X10*3/uL (1.2-4.9); Lymphocytes Percent Auto 16.1 % (20-40); Mean Corpuscular HGB Conc 34.8 g/dl (31.0-36.0); Mean Corpuscular Hemoglobin 28.5 pg (27.0-33.0); Mean Corpuscular Volume 81.8 fL (80.0-98.0); Monocytes Absolute Auto 0.9 X10*3/uL (0.1-1.2); Monocytes Percent Auto 9.5 % (2-11); Neutrophils Absolute Auto 6.9 x10*3/uL (2.0-8.3); Neutrophils Percent Auto 72.1 % (45-73); Platelet Count 219 X10*3/uL (160-400); Red Blood Count 5.44 X10*6/uL (4.60-5.80); Red Cell Distribution Width 13.2 % (11.0-16.0); White Blood Count 9.6 X10*3/uL (4.8-10.8)
[2025-01-22 10:26] LABS: Alanine Aminotransferase 53 U/L (0-40); Albumin Level 4.3 g/dL (3.5-5.0); Alkaline Phosphatase 75 U/L (39-117); Anion Gap 12 (12-20); Aspartate Amino Transferase 29 U/L (5-37); Bilirubin Direct 0.1 mg/dL (0.0-0.5); Bilirubin Total 0.4 mg/dL (0.0-1.0); Blood Urea Nitrogen 15 mg/dL (9-16); C Reactive Protein 0.88 mg/dL (< or = 0.50); Calcium 9.3 mg/dL (8.4-10.2); Carbon Dioxide 26 mmol/L (22-29); Chloride 104 mmol/L (96-108); Creatinine Clr Calc Pharmacy 117.5; Estimated Glomerular Filt Rate > 60; Glucose Random 98 mg/dL (60-115); Potassium 3.8 mmol/L (3.3-5.1); Sodium 138 mmol/L (135-145); Total Protein 7.7 g/dL (6.5-8.0); Uric Acid 7.1 mg/dL (3.4-7.0)
[2025-01-22 10:50] LABS: Erythrocyte Sedimentation Rate 14 MM/HR (0-15)
[2025-01-22 11:00] VITALS: BP 136/85; PULSE 103; RESP 20; TEMP 36.7; O2SAT 96
[2025-01-22 11:05] VITALS: BP 136/85; PULSE 103; RESP 20; TEMP 36.7; O2SAT 96
== END 2025-01-22 11:08 | disposition home or self-care (01) ==
PROVIDERS: Physician Assistant; Emergency Provider Emergency Medicine; PCP Nurse Practitioner Family
DX: M10.072 Idiopathic gout, left ankle and foot (principal); M79.605 Pain in left leg; R60.0 Localized edema; M79.672 Pain in left foot; Z87.891 Personal history of nicotine dependence; Z79.899 Other long term (current) drug therapy
CPT/HCPCS: 36415; 73630; 80048; 80076; 83735; 84550; 85025; 85652; 86140; 93971; 96372; 99284; J1885

== ENCOUNTER → 2025-01-22 08:40 | Outpatient (BNV) | payer OTHER, SELFPAY | PROVIDERS: Emergency Provider Emergency Medicine; PCP Nurse Practitioner Family; Visit Provider Radiology Diagnostic Radiology | DX: M79.605 Pain in left leg (principal); M79.672 Pain in left foot | CPT/HCPCS: 73630; 93971 ==

== ENCOUNTER 2025-02-16 09:42 | Outpatient (AMB) | payer OTHER, SELFPAY ==
--- NOTE | 2025-02-16 09:48 | MHC.PC.OV ---
Vital Signs 02/16/25 09:51 Height 5 ft 11 in Weight 281 lb 2 oz BMI 39.2 BP 126/75 Blood Pressure Location Rt brachial Position Sitting Respiration 16 Pulse 81 Pulse Source Pulse Oximeter Temp 98.1 F Temp Source Oral Pulse Oximetry (%) 95 Oxygen Delivery Method Room Air 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: 6 mos hypothyroidism Intake Note: patient here for 6 month hypothyroidsm Drum Builder Required: No Allergies oxycodone [From Percocet] Allergy (Unknown, Verified 02/16/25 10:23) Unknown Medication List - Last Reconciled 02/16/25 by Anna Lugo, AUDREY albuterol sulfate 2.5 mg (3 mL) inhalation Q4-6H PRN aspirin 325 mg PO DAILY [id number] 160-9-4.8 mcg/actuation (Breztri Aerosphere) 2 inhalations inhalation BID ipratropium bromide 2 sprays intranasal BID ipratropium-albuterol 0.5 mg-3 mg(2.5 mg base)/3 mL 3 mL inhalation Q6H PRN ipratropium-albuterol 20-100 mcg/actuation (Combivent Respimat) 1 puff inhalation Q6H levothyroxine (Synthroid) 175 mcg PO DAILY 30 days montelukast 10 mg PO DAILY 90 days Tobacco use date assessed: 02/16/25 Dental Screening Dental Screen Date: 02/16/25 Did you have a dental visit in the last 12 months?: No Did you have a dental problem in the last 6 months where you did not have access to dental care?: No Was dental information given to patient?: Yes HPI HPI Comments History of Present Illness Details 49-year-old male presents for hypothyroidism follow-up. He admits to taking his medications as prescribed without adverse reactions. He did not get TSH lab work done as planned for this visit. He offers no complaints and denies acute symptoms at this time. [facility] Medical History (Updated 01/25/25 @ 20:09 by Desiree Degroot NP) BEST on CPAP Hypothyroid Asthma-COPD overlap syndrome Surgical History History of back surgery Family History Mother Lung cancer Other Diabetes Social History (Reviewed 10/21/24 @ 09:02 by Jasmin Valerio [facility]) Housing: House Alcohol intake: never Patient Tobacco Use Status: Former Tobacco user Cigarette Packs Per Day: 1 Years Smoked: 15 e-Cigarette/Vaping Use: Never Used Second Hand Smoke Exposure: No service: No Current occupational status: employed 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 Alfonso Ann, Geraldine Whipple, Karlos Morales and colleagues, with an educational isabelle from [employer]. Review of Systems Const Details: Const Denies chills, Denies fatigue, Denies fever(s), Denies headache(s) and Denies weakness ENT Denies dizziness and Denies headache(s) Card Denies chest pain, Denies lightheadedness, Denies dyspnea and Denies other (Palpitations) Resp Denies cough, Denies dyspnea, Denies wheezing and Denies other ( shortness of breath) GI Denies abdominal pain, Denies melena, Denies hematochezia, Denies change in bowel habits, Denies dyspepsia and Denies nausea Denies hematuria and Denies dysuria Musc Denies abnormal gait, Denies myalgias, Denies arthralgias, Denies numbness and Denies tingling Skin/Breast Denies rash, Denies unusual bruising and Denies wounds Neuro Denies abnormal gait, Denies dizziness, Denies headache(s), Denies memory loss, Denies numbness, Denies Sensory deficit (Neuro), Denies tingling and Denies weakness Psych Denies anxiety, Denies depression, Denies memory loss Endo Denies cold intolerance, Denies fatigue, Denies heat intolerance, Denies polydipsia and Denies polyuria Aller/Immun Denies wheezing Physical exam (Primary Care) Vital Signs: Last Vital Signs Temp 98.1 F 02/16/25 09:51 Pulse 81 02/16/25 09:51 Resp 16 02/16/25 09:51 BP 126/75 02/16/25 09:51 Pulse Ox 95 02/16/25 09:51 Oxygen Delivery Method Room Air 04/15/25 09:51 BMI result Body Mass Index 39.2 Tobacco/Smoking Status: Tobacco use Status Tobacco use date assessed 02/16/25 02/16/25 09:54 Patient Tobacco Use Status Former Tobacco user 02/16/25 09:54 e-Cigarette/Vaping Use Never Used 02/16/25 09:54 Thrive Assessment: Date of Thrive Assessment Date Thrive assessed 12/30/23 02/16/25 09:54 Const Other: General: no acute distress and well developed Nutritional Appearance: well nourished Orientation/consciousness: patient oriented x3 HENMT Head: Yes normocephalic and Yes atraumatic Eyes General: appearance normal, both eyes and all related structures Pupils: Equal, round and reactive pupils present EOM: EOMs intact bilaterally Resp Effort & Inspection: normal respiratory effort Auscultation: clear to auscultation bilaterally Cardio Rate: regular rate Rhythm: regular rhythm Heart sounds: S1 normal heart sound present, S2 normal heart sound present, no gallops, no murmurs and no rubs GI Palpation (GI): No Abdominal aortic bruit present, Soft to palpation, nontender, No hepatosplenomegaly present and No Rebound tenderness present Auscultation: normal bowel sounds General: Yes no CVA tenderness Back/Spine/Pelvis Back: no CVA tenderness Cervical Spine: cervical ROM normal and No Cervical spine tenderness Thoracic/Lumbar Spine: thoraco-lumbar ROM normal, No pain with thoraco-lumbar ROM, No thoracic spinal tenderness and No lumbar spinal tenderness Extrem General: Yes normal to inspection, No edema and No calf tenderness Skin General: warm and dry. Normal skin color. Normal skin turgor Neuro General: patient oriented x3, gait normal and no focal neuro deficit Cranial nerves: Yes Equal, round and reactive pupils present Cognition (Neuro): normal cognition Gait exam (Neuro): Normal gait present Sensory Exam: No Sensory deficit (Neuro) Psych Appearance: grossly normal Affect: normal affect Attitude: cooperative Thought process: Normal thought process present Coding Level of Care Code Est Pt Level 3 (41084) Diagnoses Hypothyroidism E03.9 Laboratory tests ordered as part of a complete physical exam (CPE) Z00.00 Assessment & Plan Assessment & Plan (1) Hypothyroidism: Code(s): E03.9 - Hypothyroidism, unspecified Category: Medical Plan: Recent TSH level in August was low, 0.20, free T4 was normal. Continue current treatment regimen. Advised to perform TSH/T4 blood work today. Will review results and make changes as needed. Perform fasting blood work 2-3 days before next visit. Follow-up for an extended physical exam and labs review in 1 month. Return sooner with symptoms or concerns. Verbalized understanding and agreed with treatment plan. (2) Laboratory tests ordered as part of a complete physical exam (CPE): Code(s): Z00.00 - Encounter for general adult medical examination without abnormal findings Category: Medical Plan: Fasting labs ordered as part of a complete physical exam. Advised to fast for at least 10 hours before getting labs drawn. May drink water Verbalized understanding and agreed with treatment plan. Orders: Orders Microalbumin, Random (w Creat) 1 Month Z00.00 - Encounter for general adult medical examination without abnormal findings PSA, Ultra Sensitive Today Z00.00 - Encounter for general adult medical examination without abnormal findings Lipid Panel 1 Month Z00.00 - Encounter for general adult medical examination without abnormal findings Vitamin D 25-OH Total 1 Month Z00.00 - Encounter for general adult medical examination without abnormal findings
[2025-02-16 09:51] VITALS: BP 126/75; PULSE 81; RESP 16; TEMP 36.7; O2SAT 95; BMI 39.2
--- OUTSIDE RECORDS SUMMARY | 2025-02-16 10:58 | XMS_ITS | Clinical Summary ---
Author Organization [facility] Address [address] [place] [address] Care Team Providers Care Quarry Supervisor Name Role Phone Gerry Bean Primary Care Provider Allergies Active Allergy Reactions Criticality Noted Date Comments Oxycodone-Acetaminophen Nausea/GI Upset 010 Medications Levothyroxine Sodium (SYNTHROID) 100 MCG OR TABS 1 TABLET DAILY Active Warfarin Sodium (COUMADIN) 1 MG OR TABS 1 TABLET DAILY Active Aspirin 325 MG Tab 2 TABLETS EVERY 4 TO 6 HOURS NEEDED Active Family History Medical History Relation Name Comments Thyroid Disorder Maternal grandmother & g oiter Relation Name Status Comments Maternal grandmother Social History Tobacco Use Types Packs/Day Years Used Date Smoking Tobacco: Former Cigarettes Q uit: 05/23/2009 Alcohol Use Standard Drinks/Week Comments Not Asked 0 (1 standard drink = 0.6 oz pur e alcohol) Sex and Gender Information Value Date Recorded Sex Assigned at Not on file Legal Sex Male 1:13 AM EDT Gender Identity Not on file Sexual Orientation Not on file Last Filed Vital Signs Vital Sign Reading Time Taken Comments Blood Pressure 136/84 05/22/2010 12:07 PM EDT Pulse 83 05/22/2010 12:07 PM EDT Temperature 37 ??C (98.6 ??F) 05/22/2010 12:07 PM EDT Respiratory Rate 16 05/22/2010 12:07 PM EDT Oxygen Saturation 95% 05/22/2010 12:07 PM EDT Inhaled Oxygen Concentration - - Weight - - Height - - Body Mass Index - - Plan of Treatment Health Maintenance Due Date Last Done Comments Hepatitis C Screening 1973 DTaP/Tdap/Td (1 - Tdap) 1991 Hep B (1 of 3 - 19+ 3-dose series) 1992 Pneumococcal 50+ years (1 of 1 - PCV) 2023 Zoster (Shingrix) (1 of 2) 2023 COVID-19 Vaccine ( - 2023-2 5 season) 2024 Influenza (#1) 2024 HPV Vaccine Aged Out No longer eligi ble based on patient's age to complete this topic Hep A Aged Out No longer eligi ble based on patient's age to complete this topic Hib Aged Out No longer eligi ble based on patient's age to complete this topic Meningococcal ACWY Aged Out No longer eligible based on patient's age to complete this topic Insurance [employer] PPO Care Teams Quarry Supervisor Relationship Specialty Start Date End Date Gerry Bean [facility] [address] [place] [address] PCP - General 05/22/10
== END 2025-02-16 10:30 | disposition home or self-care (01) ==
PROVIDERS: PCP Nurse Practitioner Family; Visit Provider Nurse Practitioner Family
DX: E03.9 Hypothyroidism, unspecified (principal); Z00.00 Encounter for general adult medical examination without abnormal findings

== ENCOUNTER → 2025-02-16 09:42 | Outpatient (BNVA) | payer OTHER, SELFPAY | PROVIDERS: PCP Nurse Practitioner Family; Visit Provider Nurse Practitioner Family ==

== ENCOUNTER 2025-02-16 10:37 | Outpatient (REF) | payer OTHER, SELFPAY ==
--- OUTSIDE RECORDS SUMMARY | 2025-02-16 12:48 | XMS_ITS | Clinical Summary ---
Author Organization [facility] Address [address] [place] [address] Care Team Providers Care Social Services Director Name Role Phone Gerry Bean Primary Care [...] this topic Insurance [employer] PPO Care Teams Social Services Director Relationship Specialty Start Date End Date Gerry Bean [facility] [address] [place] [address] PCP - General 05/22/10
[2025-02-16 15:13] LABS: Creatinine Urine 275.03 mg/dL; Microalbum/Creatinine Ratio Ur 11.6 ug/mg cr (<30)
[2025-02-16 15:31] LABS: TSH reflex Free T4 9.82 uIU/mL (0.32-4.0); Vitamin D 25-OH Total 37.4 ng/mL (>30)
[2025-02-24 00:58] LABS: PSA, Ultra Sensitive 1.38 ng/mL
== END 2025-02-16 10:38 | disposition home or self-care (01) ==
LOC: HO.WFDLDS 10:37
PROVIDERS: Visit Provider Nurse Practitioner Family
DX: Z00.00 Encounter for general adult medical examination without abnormal findings (principal); E03.9 Hypothyroidism, unspecified; Z12.5 Encounter for screening for malignant neoplasm of prostate
CPT/HCPCS: 36415; 82043; 82306; 82570; 84153; 84439; 84443

== ENCOUNTER 2025-03-22 14:24 | Outpatient (REF) | payer OTHER, SELFPAY ==
--- OUTSIDE RECORDS SUMMARY | 2025-03-22 14:32 | XMS_ITS | Clinical Summary ---
Author Organization [facility] Address [address] [place] [address] Care Team Providers Care Gasfitter Name Role Phone Gerry Bean Primary Care [...] this topic Insurance [employer] PPO Care Teams Gasfitter Relationship Specialty Start Date End Date Gerry Bean [facility] [address] [place] [address] PCP - General 05/22/10
--- OUTSIDE RECORDS SUMMARY | 2025-03-22 14:32 | XMS_ITS ---
Author Name [facility] Organization Unknown Care Team Organization Name Specialty Phone Email Start Date End [facility]ushant [facility] 02/26/2025
[2025-03-22 19:30] LABS: Cholesterol 182 mg/dL (<200); HDL Cholesterol 45 mg/dL (>40); LDL Cholesterol Calculated 115 mg/dL (<100); Triglycerides 112 mg/dL (<150)
[2025-03-22 19:48] LABS: TSH reflex Free T4 1.81 uIU/mL (0.32-4.0)
== END 2025-03-22 14:25 | disposition home or self-care (01) ==
LOC: HO.HMGCLDS 14:24
PROVIDERS: PCP Nurse Practitioner Family; Visit Provider Nurse Practitioner Family
DX: Z00.00 Encounter for general adult medical examination without abnormal findings (principal); E03.9 Hypothyroidism, unspecified
CPT/HCPCS: 36415; 80061; 84443

== ENCOUNTER 2025-03-23 07:50 | Outpatient (AMB) | payer OTHER, SELFPAY ==
--- NOTE | 2025-03-23 07:55 | MHC.PC.OV ---
Vital Signs 03/23/25 08:04 Height 5 ft 11 in Weight 276 lb 8 oz BMI 38.6 BP 130/84 Blood Pressure Location Lt brachial Position Sitting Respiration 16 Pulse 108 H Pulse Source Pulse Oximeter Temp 98.5 F Temp Source Oral Pulse Oximetry (%) 96 Oxygen Delivery Method Room Air 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: 1 mos CPE, labs review Intake Note: patient here for CPE and lab review Poultry Hatchery Supervisor Required: No Allergies oxycodone [From Percocet] Allergy (Unknown, Verified 03/23/25 08:11) Unknown Medication List - Last Reconciled 03/23/25 by Anna Lugo, AUDREY albuterol sulfate 2.5 mg (3 mL) inhalation Q4-6H PRN aspirin 325 mg PO DAILY fskoiiqdha-milmkbug-zihawejnot 160-9-4.8 mcg/actuation (Breztri Aerosphere) 2 inhalations inhalation BID ipratropium bromide 2 sprays intranasal BID ipratropium-albuterol 0.5 mg-3 mg(2.5 mg base)/3 mL 3 mL inhalation Q6H PRN ipratropium-albuterol 20-100 mcg/actuation (Combivent Respimat) 1 puff inhalation Q6H levothyroxine (Synthroid) 200 mcg PO DAILY 30 days montelukast 10 mg PO DAILY 90 days Tobacco use date assessed: 03/23/25 Dental Screening Dental Screen Date: 03/23/25 Did you have a dental visit in the last 12 months?: No Did you have a dental problem in the last 6 months where you did not have access to dental care?: No Was dental information given to patient?: No (already gave forms) HPI HPI Comments History of Present Illness Details 49-year-old male presents for an extended physical exam. He admits to taking his medication as prescribed without adverse reaction. Acute issue(s) - None Past Medical History - Asthma-COPD overlap syndrome, hypothyroidism, BEST, elevated ALT, myopia, hyperopia, and morbid obesity Social History - Former smoker. Does not vape. Drinks occasionally, had 1-2 beers in 10/2024. Denies recreational drug use - Has been making healthy dietary choices. Walks regularly. Reports poor sleep d/t working night shifts Health maintenance - Last eye exam was a month and half ago with [facility]. He will sign a release for his PCP to obtain his ophthalmology record - Last dental visit was about 2 years ago; encouraged to schedule an appointment with his dentist for routine dental care - Last tetanus vaccine was about 10 years ago; received Tdap vaccine today - Has not been vaccinated for the flu this season; declines vaccination - He has never been vaccinated for shingles or pneumonia - He has never had a colonoscopy. He had screening with [facility] but his colonoscopy was cancelled the day it was scheduled. 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 1. Little interest or pleasure in doing things: not at all 2. Feeling down, depressed, or hopeless: not at all 3. Trouble falling or staying asleep, or sleeping too much: not at all 4. Feeling tired or having little energy: not at all 5. Poor appetite or overeating: not at all 6. Feeling bad about yourself - or that you are a failure or have let yourself or your family down: not at all 7. Trouble concentrating on things, such as reading the newspaper or watching television: not at all 8. Moving or speaking so slowly that other people could have noticed. Or the opposite - being so fidgety or restless that you have been moving around a lot more than usual: not at all 9. Thoughts that you would be better off or of hurting yourself in some way: not at all Total score: 0 Depression Screening Interpretation: Negative Depression Screening Done: Yes 94524 - PHQ-9 Billing: Yes Source: Developed by Drs. Alfonso Ann, Geraldine Whipple, Karlos Morales and colleagues, with an educational isabelle from [employer]. Thrive Questionnaire Date Thrive assessed: 03/23/25 I am a: Patient What is your living situation today?: I have a steady place to live Within the past 12 months, did the food you bought not last and you didn't have the money to get more?: Never true Within the past 12 months, did you worry whether your food would run out before you got money to buy more?: Never true Do you have trouble paying for medicines?: No Do you have trouble getting transportation to medical appointments?: No Do you have trouble paying your heating and electricity bill?: No Do you have trouble taking care of your child, family member or friend?: No Do you have trouble with day-to-day activities such as bathing, preparing meals, shopping, managing finances, etc.?: No Are you currently unemployed and looking for a job?: No Are you interested in more education?: No Please select the resources that you would like help with: None Currently or been in a relationship where the following occur: No concerns reported THRIVE Score: 0 AUDIT C Alcohol Use Questionnaire (AUDIT-C) 1. How often do you have a drink containing alcohol?: Monthly or less 2. How many drinks containing alcohol do you have on a typical day when you are drinking?: 1 or 2 3. How often do you have six or more drinks on one occasion?: Never Total Score: 1 Score Reviewed/Action Taken: Yes EVELIN-7 AMB Questionnaire EVELIN-7 Date EVELIN - 7 assessed: 03/23/25 Feeling nervous, anxious, or on edge: 0 = Not at all Not being able to stop or control worryin = Not at all Worrying too much about different things: 0 = Not at all Trouble relaxin = Not at all Being so restless that it is hard to sit still: 0 = Not at all Becoming easily annoyed or irritable: 0 = Not at all Feeling afraid as if something awful might happen: 0 = Not at all Total EVELIN-7 score (0-4 normal; 5-9 mild; 10-14 moderate; 15-21 severe): 0 Source: Developed by Drs. Alfonso Ann, Geraldine Whipple, Karlos Morales and colleagues, with an educational isabelle from [employer]. EVELIN-7 Assessment Billing EVELIN-7 Assessment Tool: EVELIN-7 Assessment 18476 ACT Questionnaire In the past 4 weeks, how much of the time did your asthma keep you from getting as much done at work, school or at home?: All of the time During the past 4 weeks, how often have you had shortness of breath?: More than once a day During the past 4 weeks, how often did your asthma symptoms wake you up at night or earlier than usual in the morning?: Once a week During the past 4 weeks, how often have you had to use your rescue inhaler or nebulizer medication?: 1-2 times a week How would you rate your asthma control during the past 4 weeks?: Poorly controlled ACT Interpretation: Positive Score: 9 Review of Systems Const Details: Denies chills, Denies fatigue, Denies fever(s), Denies headache(s) and Denies weakness HEENT Denies change in vision, Denies dizziness, Denies headache(s), Denies hearing loss, Denies nasal congestion, Denies sinus pain, Denies sinus pressure and Denies sore throat Card Denies chest pain, Denies lightheadedness, Denies dyspnea and Denies other (palpitations) Resp Denies cough, Denies dyspnea and Denies wheezing GI Denies abdominal pain, Denies melena, Denies hematochezia, Denies change in bowel habits, Denies dyspepsia and Denies nausea Denies hematuria and Denies dysuria Musc Denies abnormal gait, Denies myalgias, Denies arthralgias, Denies numbness and Denies tingling Skin/Breast Denies rash, Denies unusual bruising and Denies wounds Neuro Denies abnormal gait, Denies dizziness, Denies headache(s), Denies memory loss, Denies numbness, Denies Sensory deficit (Neuro), Denies tingling and Denies weakness Psych Denies anxiety, Denies depression and Denies memory loss Endo Denies cold intolerance, Denies fatigue, Denies heat intolerance, Denies polydipsia and Denies polyuria Edmund/Lymph Denies easy bleeding and Denies easy bruising Aller/Immun Denies wheezing Physical exam (Primary Care) Vital Signs: Last Vital Signs Temp 98.5 F 03/23/25 08:04 Pulse 108 H 03/23/25 08:04 Resp 16 03/23/25 08:04 BP 130/84 03/23/25 08:04 Pulse Ox 96 03/23/25 08:04 Oxygen Delivery Method Room Air 03/23/25 08:04 BMI result Body Mass Index 38.6 Tobacco/Smoking Status: Tobacco use Status Tobacco use date assessed 03/23/25 03/23/25 08:09 Patient Tobacco Use Status Former Tobacco user 03/23/25 07:56 e-Cigarette/Vaping Use Never Used 03/23/25 07:56 PHQ-9: PHQ-9 Score PHQ-9: Total score 0 03/23/25 08:40 Depression Screening Interpretation: Negative Thrive Assessment: Date of Thrive Assessment Date Thrive assessed 03/23/25 03/23/25 08:09 Currently or been in a relationship where the following occur: No concerns reported Const Other: General: no acute distress, well developed, alert and awake Nutritional Appearance: well nourished Orientation/consciousness: patient oriented x3 HENMT Head: Yes normocephalic and Yes atraumatic Ears: hearing grossly normal bilaterally and TM's normal bilaterally General nose exam: Normal external nose present and Normal nares present Mouth: Normal oral and palatal mucosa present and moist mucous membranes Teeth and gingiva: Several missing and decayed teeth Throat: Yes oropharynx normal Eyes Pupils: Equal, round and reactive pupils present and Pupil accommodation reflex normal EOM: EOMs intact bilaterally Neck Neck: Yes normal visual inspection, Yes no lymphadenopathy and Yes trachea midline Thyroid: Thyroid normal Carotids: no bruits Lymphatic: no lymphadenopathy noted Chest Chest palpation & inspection: normal inspection of the chest Resp Effort & Inspection: normal respiratory effort Auscultation: clear to auscultation bilaterally Cardio Rate: regular rate Rhythm: regular rhythm Heart sounds: S1 normal heart sound present, S2 normal heart sound present, no gallops, no murmurs and no rubs Bruits: no abdominal aortic bruits and no carotid bruits GI Palpation (GI): No Abdominal aortic bruit present, Soft to palpation, nontender, No hepatosplenomegaly present and No Rebound tenderness present Auscultation: normal bowel sounds General: Yes no CVA tenderness Back/Spine/Pelvis Back: no CVA tenderness Cervical Spine: cervical ROM normal and No Cervical spine tenderness Thoracic/Lumbar Spine: thoraco-lumbar ROM normal, No pain with thoraco-lumbar ROM, No thoracic spinal tenderness and No lumbar spinal tenderness Skin General: warm and dry. Normal skin color. Normal skin turgor Lesions: no lesions Rashes: no rashes Trauma: no lacerations or abrasions Wounds: no wounds Nails: normal Neuro General: patient oriented x3, gait normal and CN's II-XI intact bilaterally Cranial nerves: Yes Equal, round and reactive pupils present Cognition (Neuro): normal cognition Gait exam (Neuro): Normal gait present Motor exam (neuro): 5/5 motor strength present throughout Sensory Exam: No Sensory deficit (Neuro) Deep tendon reflexes (DTR's): Right patellar reflex intensity grade: 2+ and Left patellar reflex intensity grade: 2+ Extrem General: Yes normal to inspection, No edema and No calf tenderness Psych Appearance: grossly normal Affect: normal affect Attitude: cooperative Thought process: Normal thought process present Immunizations Boostrix Tdap 2.5 Lf unit-8 mcg-5 Lf/0.5 mL intramuscular syringe Performing Provider: Anna Lugo CNP Performing Location: [facility] Administered by: Haleigh Moura RN on 03/23/25 08:39 Dose Route Admin Location Dispensed Lot Number Expiration Date NDC Analytical Statistician 0.5 mL IM Right Deltoid 0.5 mL [id number] 04/17/27 [id number] Inline.[employer]INE VIS Given Date VIS Provided VIS Publication Date 03/23/25 Single Vaccine 21 Eligibility Eligibility Date Funding Source Not [facility] Eligible 03/23/25 Private Coding Level of Care Code Est Pt Level 4 (89905) Est Pt Prev Care 40-64y(95253) Diagnoses Normal physical examination, routine Z00.00 Asthma-COPD overlap syndrome J44.89 Hypothyroidism E03.9 BEST on CPAP G47.33 Poor dentition K08.9 Elevated LDL cholesterol level E78.00 Obesity (BMI 30-39.9) E66.9 Myopia H52.10 Hyperopia H52.00 Vaccine counseling Z71.85 Additional Codes Asthma Control Questionnaire - ACT Interpretation: Positive ([id number]) EVELIN-7 Assessment Billing - EVELIN-7 Assessment Tool: EVELIN-7 Assessment 55457 ([id number]) PHQ-9 - 08972 - PHQ-9 Billing: Yes ([id number]) Assessment & Plan Assessment & Plan (1) Normal physical examination, routine: Code(s): Z00.00 - Encounter for general adult medical examination without abnormal findings Category: Medical Plan: No significant functional limitation noted. Continue current treatment regimen. Instructed on sleep hygiene. Follow-up with symptoms or concerns. Verbalized understanding and agreed with the plan. (2) Asthma-COPD overlap syndrome: Code(s): J44.89 - Other specified chronic obstructive pulmonary disease Category: Medical Plan: ACT score is 9, poorly control asthma. Continue current treatment regimen. Followed by [facility] pulmonology. Verbalized understanding and agreed with the plan. (3) Hypothyroidism: Code(s): E03.9 - Hypothyroidism, unspecified Category: Medical Plan: Recent TSH level was normal. Continue current treatment regimen. Perform TSH/T4 blood work 2-3 days before next visit. Follow-up for a telehealth visit in 3 months. Verbalized understanding and agreed with the plan. (4) BEST on CPAP: Code(s): G47.33 - Obstructive sleep apnea (adult) (pediatric) Category: Medical Plan: Reports poor sleep d/t working night shifts. Instructed on sleep hygiene. Continue to use CPAP. Follow-up with worsening or new symptoms. Verbalized understanding and agreed with the plan. (5) Poor dentition: Code(s): K08.9 - Disorder of teeth and supporting structures, unspecified Category: Medical Plan: His last dental visit was about 2 years ago; encouraged to schedule an appointment with his dentist for routine dental care. Several missing and decayed teeth noted. Encouraged to schedule an appointment and follow-up with a dentist. Verbalized understanding and agreed with the plan. (6) Elevated LDL cholesterol level: Code(s): E78.00 - Pure hypercholesterolemia, unspecified Category: Medical Plan: Recent LDL level is slightly elevated, 115. Previous level was 112. Advised to limit foods high in saturated fat and avoid foods high in trans fat. Routine exercise encouraged. Will monitor lipid panel level periodically or if presents with with the symptoms or concerns. Verbalized understanding and agreed with the plan. (7) Obesity (BMI 30-39.9): Code(s): E66.9 - Obesity, unspecified Category: Medical Plan: He currently weighs 276 lb, BMI is 38.6. Declines referral to plumbing assembler installer/dietitian or with management clinic at this time and notes he will continue to make healthy lifestyle changes. Healthy diet and routine exercise encouraged. Follow-up as needed. Verbalized understanding and agreed with the plan. (8) Myopia: Code(s): H52.10 - Myopia, unspecified eye Category: Medical Plan: He wears prescription glasses. His last eye exam was a month and half ago with [facility], [facility]. He will sign a release for his PCP to obtain his ophthalmology record. (9) Hyperopia: Code(s): H52.00 - Hypermetropia, unspecified eye Category: Medical Plan: Plan as above. (10) Vaccine counseling: Code(s): Z71.85 - Encounter for immunization safety counseling Category: Medical Plan: He has never been vaccinated for shingles or pneumonia. Instructed on the importance of vaccination and encouraged to get vaccinated for shingles and pneumonia. He may get the vaccines from the local pharmacy. Verbalized understanding and agreed with the plan. Orders: Orders TSH reflex Free T4 3 Months E03.9 - Hypothyroidism, unspecified TDaP Immunization Today Z23 - Encounter for immunization
--- OUTSIDE RECORDS SUMMARY | 2025-03-23 07:55 | XMS_ITS | Clinical Summary ---
Author Organization [facility] Address [address] [place] [address] Care Team Providers Care Chef'S Assistant Name Role Phone Gerry Bean Primary Care [...] this topic Insurance [employer] PPO Care Teams Chef'S Assistant Relationship Specialty Start Date End Date Gerry Bean [facility] [address] [place] [address] PCP - General 05/22/10
[2025-03-23 08:04] VITALS: BP 130/84; PULSE 108; RESP 16; TEMP 36.9; O2SAT 96; BMI 38.6
== END 2025-03-23 08:42 | disposition home or self-care (01) ==
LOC: HO.HMCFM 07:51
PROVIDERS: PCP Nurse Practitioner Family; Visit Provider Nurse Practitioner Family
DX: Z00.00 Encounter for general adult medical examination without abnormal findings (principal); J44.89 Other specified chronic obstructive pulmonary disease; E03.9 Hypothyroidism, unspecified; G47.33 Obstructive sleep apnea (adult) (pediatric); K08.9 Disorder of teeth and supporting structures, unspecified; E78.00 Pure hypercholesterolemia, unspecified; E66.9 Obesity, unspecified; H52.13 Myopia, bilateral; H52.03 Hypermetropia, bilateral; Z71.85 Encounter for immunization safety counseling; Z23 Encounter for immunization; Z68.38 Body mass index [BMI] 38.0-38.9, adult

== ENCOUNTER → 2025-03-23 07:50 | Outpatient (BNVA) | payer OTHER, SELFPAY | PROVIDERS: PCP Nurse Practitioner Family; Visit Provider Nurse Practitioner Family | DX: Z00.00 Encounter for general adult medical examination without abnormal findings (principal); J44.89 Other specified chronic obstructive pulmonary disease; E03.9 Hypothyroidism, unspecified; G47.33 Obstructive sleep apnea (adult) (pediatric); E66.01 Morbid (severe) obesity due to excess calories; K08.9 Disorder of teeth and supporting structures, unspecified; E78.00 Pure hypercholesterolemia, unspecified; E66.9 Obesity, unspecified; H52.10 Myopia, unspecified eye; H52.00 Hypermetropia, unspecified eye; Z23 Encounter for immunization; Z68.38 Body mass index [BMI] 38.0-38.9, adult; Z87.891 Personal history of nicotine dependence; Z71.85 Encounter for immunization safety counseling | CPT/HCPCS: 90471; 90715; 96127; 96160 ==

== ENCOUNTER 2025-04-21 09:31 | Outpatient (AMB) | payer OTHER, SELFPAY ==
--- NOTE | 2025-04-21 09:33 | MHC.OFFVIS ---
Vital Signs 04/21/25 09:36 Height 5 ft 11 in Weight 273 lb 5.971 oz BMI 38.1 BP 134/82 Blood Pressure Location Lt brachial Position Sitting Pulse 94 Pulse Source Monitor 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: FREELANCE DATA ENTRY/Chest pain/Dyspnea/Brittney Intake Note: FREELANCE DATA ENTRY/Chest pain/ Dyspnea Marketing Outreach Coordinator Required: No Accompanied by: Self / Same As Patient Allergies oxycodone (From Percocet) Allergy (Unknown, Verified 03/23/25 08:11) Unknown Medication List - Last Reconciled 04/21/25 by Jarett Kerr MD albuterol sulfate 2.5 mg (3 mL) inhalation Q4-6H PRN aspirin 325 mg PO DAILY vxfdzefewg-kwrzryhz-cisyrjkgji 160-9-4.8 mcg/actuation (Breztri Aerosphere) 2 inhalations inhalation BID ipratropium bromide 2 sprays intranasal BID ipratropium-albuterol 0.5 mg-3 mg(2.5 mg base)/3 mL 3 mL inhalation Q6H PRN ipratropium-albuterol 20-100 mcg/actuation (Combivent Respimat) 1 puff inhalation Q6H levothyroxine (Synthroid) 200 mcg PO DAILY 30 days montelukast 10 mg PO DAILY 90 days HPI Comments Details: The patient is a 50-year-old male presenting with shortness of breath. Reports dyspnea on exertion, particularly walking and stairs, since [id number] infection in 2020. Experiences lightheadedness without chest pressure or pain during these episodes. No smoking for 10-15 years, stable weight. History of pulmonary embolism treated 20 years prior. Asthma not optimally managed. Compliant with CPAP for obstructive sleep apnea. Of note, referral states exertional chest discomfort, but patient clearly denies this. Takes main issues rather shortness of breath. 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 Cognitive needs: No Hearing needs: No Vision needs: No Review of Systems Const Denies chills, Denies fatigue, Denies fever(s), Denies frequent falls, Denies weakness, Denies weight gain and Denies weight loss ENT Denies dizziness Card Denies chest pain, Denies leg edema, Denies lightheadedness, Denies palpitations, Denies dyspnea, Denies dyspnea on exertion and Denies orthopnea Resp Denies cough, Denies dyspnea and Denies dyspnea on exertion GI Denies bloating and Denies change in bowel habits Musc Denies muscle weakness, Denies numbness and Denies tingling Neuro Denies dizziness, Denies frequent falls, Denies numbness, Denies tingling and Denies weakness Endo Denies fatigue and Denies palpitations Physical Exam Vital Signs: Last Vital Signs Pulse 94 04/21/25 09:36 BP 134/82 04/21/25 09:36 BMI result Body Mass Index 38.1 Const General: comfortable and no acute distress Orientation/consciousness: patient oriented x3 HEENT Other: Unremarkable Head: Yes normal to inspection Neck Neck: Yes normal visual inspection Chest Chest palpation & inspection: normal inspection of the chest Resp Auscultation: clear to auscultation bilaterally Cardio Palpation: normal PMI Heart sounds: S1 normal heart sound present, S2 normal heart sound present, no gallops, no murmurs and no rubs GI Palpation (GI): Soft to palpation Back/Spine/Pelvis Other: unremarkable Skin General skin exam: no rashes or lesions noted Neuro General: patient oriented x3 Extrem General: Yes normal to inspection Psych Mental Status: mental status grossly normal Office Procedures EKG Details: EKG with underlying sinus rhythm at 94/Min; no ischemic changes; [place] [address]-[id number], Complete Assessment & Plan Assessment & Plan (1) Dyspnea on exertion: Code(s): R06.09 - Other forms of dyspnea Category: Medical (2) Former smoker: Code(s): Z87.891 - Personal history of nicotine dependence Category: Social Hx (3) Morbid obesity: Code(s): E66.01 - Morbid (severe) obesity due to excess calories Category: Medical Plan Exertional shortness of breath but no exertional chest pains; history of smoking; obesity; obstructive sleep apnea. Previously, cardiac function is unremarkable. We will recheck an echocardiogram to ensure there is no significant change and also to evaluate for pulmonary hypertension. Coronary CTA to assess for any Obstructive CAD. Based on the findings, we will plan further care. Follow-up will be scheduled. Discussion Notes I discussed with the patient the low probability of significant heart issues given the previous unremarkable echocardiogram and explained the decision to pursue a cardiac CT scan to assess for coronary artery disease. I outlined that this imaging would provide further clarity on any cardiac involvement. We talked about the interaction of asthma medications on heart rate and reviewed pertinent health history, including the power of reducing cardiac likelihood due to previous evaluation results. The patient expressed comprehension and consented to proceed with planned diagnostic imaging. An overview of follow-up communication post-CT was provided, emphasizing the importance of confirming cardiac health given the chronicity and characteristics of his symptoms. Patient was informed and verbally consented to the use of an ambient scribe for clinic note documentation during this visit. Orders: Orders CA echo transthoracic complete Today R06.09 - Other forms of dyspnea CT Cardiac Coronary Angio Today I25.10 - Atherosclerotic heart disease of marshall coronary artery without angina pectoris, R06.09 - Other forms of dyspnea Basic Metabolic Panel Today R06.09 - Other forms of dyspnea Coding Level of Care Code New Pt Level 4 (30428) Complex EM visit Add On G2211 Diagnoses Dyspnea on exertion R06.09 Former smoker Z87.891 Morbid obesity E66.01 CPT Codes EKG - CPT: 98385-Gjbihmouoefeflggl, Complete ([id number])
[2025-04-21 09:36] VITALS: BP 134/82; PULSE 94; BMI 38.1
--- OUTSIDE RECORDS SUMMARY | 2025-04-21 10:31 | XMS_ITS | Clinical Summary ---
Author Organization [facility] Address [address] [place] [address] Care Team Providers Care Blend Technician Name Role Phone Gerry Bean Primary Care [...] 83 05/22/2010 12:07 PM EDT Temperature 37 C (98.6 F) 05/22/2010 12:07 PM EDT Respiratory Rate 16 [...] (Shingrix) (1 of 2) 2023 COVID-19 Vaccine (1 - 2023-2 5 season) 2024 Influenza (Season Ended) 2025 HPV Vaccine Aged Out No longer eligi [...] this topic Insurance [employer] PPO Care Teams Blend Technician Relationship Specialty Start Date End Date Gerry Bean [facility] [address] [place] [address] PCP - General 05/22/10
== END 2025-04-21 10:00 | disposition home or self-care (01) ==
LOC: HO.HCS 09:32
PROVIDERS: PCP Nurse Practitioner Family; Visit Provider Internal Medicine
DX: R06.09 Other forms of dyspnea (principal); Z87.891 Personal history of nicotine dependence; E66.01 Morbid (severe) obesity due to excess calories
CPT/HCPCS: 93010; 99204

== ENCOUNTER → 2025-04-21 09:31 | Outpatient (BNVA) | payer OTHER, SELFPAY | PROVIDERS: PCP Nurse Practitioner Family; Visit Provider Internal Medicine | DX: R06.09 Other forms of dyspnea (principal); U09.9 Post COVID-19 condition, unspecified; E66.01 Morbid (severe) obesity due to excess calories; Z68.38 Body mass index [BMI] 38.0-38.9, adult; Z87.891 Personal history of nicotine dependence | CPT/HCPCS: 93005 ==

== ENCOUNTER 2025-06-23 07:15 | Outpatient (REF) | payer OTHER, SELFPAY ==
--- OUTSIDE RECORDS SUMMARY | 2025-06-23 07:18 | XMS_ITS | Clinical Summary ---
Author Organization [facility] Address [address] [place] [address] Care Team Providers Care Intermediate Teacher Name Role Phone Gerry Bean Primary Care [...] (1 - 2023-2 5 season) 2024 Influenza (#1) 2025 HPV Vaccine (No Doses Required) Completed Hep A Aged Out No longer eligi ble based on patient's age to complete this topic Hib Aged Out No longer eligi ble based on patient's age to complete this topic Meningococcal ACWY Aged Out No longer eligible based on patient's age to complete this topic Insurance [employer] PPO Care Teams Intermediate Teacher Relationship Specialty Start Date End Date Gerry Bean [facility] [address] [place] [address] PCP - General 05/22/10
--- OUTSIDE RECORDS SUMMARY | 2025-06-23 07:18 | XMS_ITS ---
Author Name [facility] Organization Unknown Care Team Organization Name Specialty Phone Email Start Date End Da enid Brown [facility] 02/26/2025 05/13/2025 [facility] Hayley Ordonez Primary [facility] 03/11/2023 024
[2025-06-23 12:30] LABS: Free T4 (Free Thyroxine) 1.13 ng/dL (0.71-1.85)
== END 2025-06-23 07:16 | disposition home or self-care (01) ==
LOC: HO.HMGCLDS 07:15
PROVIDERS: PCP Nurse Practitioner Family; Visit Provider Nurse Practitioner Family
DX: E03.9 Hypothyroidism, unspecified (principal)
CPT/HCPCS: 36415; 84439; 84443

== ENCOUNTER 2025-06-29 16:02 | Outpatient (AMB) | payer OTHER, SELFPAY ==
--- NOTE | 2025-06-29 15:58 | A.OFFPC_ITS ---
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: Telehealth 3 mos hypothyroidism Intake Note: patient here for 3month Telehealth follow up for Hypothyroidsm Winter Sports Manager Required: No Allergies oxycodone (From Percocet) Allergy (Unknown, Verified 06/29/25 15:58) Unknown Tobacco use date assessed: 06/29/25 Dental Screening Dental Screen Date: 06/29/25 Did you have a dental visit in the last 12 months?: No Did you have a dental problem in the last 6 months where you did not have access to dental care?: No Was dental information given to patient?: No HPI HPI Comments History of Present Illness Details 50-year-old male [facility]. He admits to taking Synthroid as prescribed without adverse reactions. He offers no complaints and denies acute symptoms at this time. 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 Alfonso Ann, Geraldine Whipple, Karlos Morales and colleagues, with an educational isabelle from [employer]. Review of Systems Const Details: Denies chills, Denies fatigue, Denies fever(s), Denies headache(s) and Denies weakness Cardiac Denies chest pain, Denies claudication, Denies leg edema, Denies lightheadedness, Denies palpitations, Denies dyspnea, Denies dyspnea on exertion, Denies orthopnea and Denies other (Loss of consciousness) Resp Denies cough, Denies excessive phlegm production, Denies dyspnea, Denies dyspnea on exertion, Denies snoring and Denies wheezing Physical exam (Primary Care) Tobacco/Smoking Status: Tobacco use Status Tobacco use date assessed 06/29/25 06/29/25 16:01 Patient Tobacco Use Status Former Tobacco user 06/29/25 16:01 e-Cigarette/Vaping Use Never Used 06/29/25 16:01 Thrive Assessment: Date of Thrive Assessment Date Thrive assessed 02/16/25 06/29/25 16:01 Const Other: Patient is alert and oriented x3 Telehealth Telehealth Telehealth Platform: Telephone Location of provider rendering services: practice address Location of patient: address on file Patient Identification confirmed using: Name, : Yes Telehealth method: voice only Patient verbally consented to treatment: Yes Patient verbally consented to billing insurance company: Yes Patient informed of any privacy concerns related to visit: Yes Coding Level of Care Code Tele Est Pt Level 3 (60235) Diagnoses Hypothyroidism E03.9 Time Spent (min) 15 Assessment & Plan Assessment & Plan (1) Hypothyroidism: Code(s): E03.9 - Hypothyroidism, unspecified Category: Medical Plan: Recent TSH level is slightly low, 0.28, free T4 is normal. Synthroid decreased to 125 mcg daily; advised to take as prescribed and with a full glass of water, in an empty stomach, 30 minute to an hour before other medications or meal. Perform TSH/T4 blood work a few days before next visit. Follow-up for telehealth visit in 6 weeks. Return sooner with symptoms or concerns. Verbalized understanding and agreed with the plan. Orders: Orders TSH reflex Free T4 6 Weeks E03.9 - Hypothyroidism, unspecified Medications: New levothyroxine (Synthroid) Synthroid - no substitution 175 mcg PO DAILY 30 tabs 3RF 30 days Discontinued levothyroxine (Synthroid) Synthroid - no substitution Discontinued Reason: Doctor's Order 200 mcg PO DAILY 30 days 30 tabs 3RF
--- OUTSIDE RECORDS SUMMARY | 2025-06-29 16:46 | XMS_ITS | Clinical Summary ---
Author Organization [facility] Address [address] [place] [address] Care Team Providers Care Senior Financial Consultant Name Role Phone Gerry Bean Primary Care [...] this topic Insurance [employer] PPO Care Teams Senior Financial Consultant Relationship Specialty Start Date End Date Gerry Bean [facility] [address] [place] [address] PCP - General 05/22/10
== END 2025-06-29 16:32 | disposition home or self-care (01) ==
PROVIDERS: PCP Nurse Practitioner Family; Visit Provider Nurse Practitioner Family
DX: E03.9 Hypothyroidism, unspecified (principal)

== ENCOUNTER 2025-07-15 08:37 | Outpatient (AMB) | payer OTHER, SELFPAY ==
--- NOTE | 2025-07-15 08:44 | MHC.OFFVIS ---
Vital Signs 07/15/25 08:45 Height 5 ft 11 in Weight 272 lb 7.861 oz BMI 38.0 BP 126/70 Blood Pressure Location Lt brachial Position Sitting Pulse 98 Pulse Source Pulse Oximeter 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: 3m follow up/ CTA Accompanied by: Self / Same As Patient Allergies oxycodone (From Percocet) Allergy (Unknown, Verified 07/15/25 08:47) Unknown Medication List - Last Reconciled 07/15/25 by Neelima Benedict NP-C albuterol sulfate 2.5 mg (3 mL) inhalation Q4-6H PRN aspirin 325 mg PO DAILY [id number] 160-9-4.8 mcg/actuation (Breztri Aerosphere) 2 inhalations inhalation BID ipratropium bromide 2 sprays intranasal BID ipratropium-albuterol 0.5 mg-3 mg(2.5 mg base)/3 mL 3 mL inhalation Q6H PRN ipratropium-albuterol 20-100 mcg/actuation (Combivent Respimat) 1 puff inhalation Q6H levothyroxine (Synthroid) 175 mcg PO DAILY 30 days montelukast 10 mg PO DAILY 90 days HPI HPI 3m follow up/ CTA: Details: Franco is a 50-year-old male with past medical history of obesity, sleep apnea with CPAP use, prior smoking, pulmonary embolism, asthma who was being evaluated for shortness of breath. He underwent a CTA of the coronary arteries and presents for follow-up. His echocardiogram has not been completed as of yet. Today he reports that he has been doing well overall. He does have shortness of breath with exertion which is not new. No shortness of breath at rest, PND, orthopnea or edema. He reports compliance with his CPAP each night. He actually sleeps during the day as he works nights for [employer]. He describes his job as physically active. He has no chest discomfort at rest or with activity. No heart palpitations, lightheadedness, presyncope, syncope. He takes a full dose aspirin daily and has since his pulmonary embolism. He denies any GI upset issues. [facility] Medical History BEST on CPAP Hypothyroid Asthma-COPD overlap syndrome Surgical History History of back surgery Family History Mother Lung cancer Other Diabetes Social History Housing: House Alcohol intake: never Patient Tobacco Use Status: Former Tobacco user Cigarette Packs Per Day: 1 Years Smoked: 15 e-Cigarette/Vaping Use: Never Used Second Hand Smoke Exposure: No service: No Current occupational status: employed Current occupation: [employer] Cognitive needs: No Hearing needs: No Vision needs: No Review of Systems Const All systems reviewed & are unremarkable except as noted in HPI and below Denies daytime sleepiness, Denies difficulty sleeping, Denies snoring, Reports stops breathing during sleep (wears CPAP) and Denies weakness Card Denies chest pain, Denies rapid heart rate, Denies irregular heart rhythm, Denies claudication, Denies leg edema, Denies lightheadedness, Denies palpitations, Reports dyspnea, Reports dyspnea on exertion, Denies orthopnea, Denies paroxysmal nocturnal dyspnea and Denies slow heart rate Resp Denies cough, Reports dyspnea, Reports dyspnea on exertion and Denies snoring GI Reports no additional complaints, Denies hematochezia, Denies change in stool character and Denies dyspepsia Musc Denies abnormal gait, Denies muscle weakness and Denies numbness Neuro Denies abnormal gait, Denies numbness and Denies weakness Endo Denies palpitations Physical Exam Exam Exam: obese Vital Signs: Last Vital Signs Pulse 98 07/15/25 08:45 BP 126/70 07/15/25 08:45 BMI result Body Mass Index 38.0 Const General: cooperative, healthy appearing, comfortable and no acute distress Orientation/consciousness: patient oriented x3 Neck Neck: Yes normal visual inspection and Yes no JVD Resp Effort & Inspection: normal respiratory effort Auscultation: clear to auscultation bilaterally, no crackles, no rales, no rhonchi and no wheezes Cardio Jugular venous distension: no JVD Rate: regular rate Rhythm: regular rhythm Heart sounds: S1 normal heart sound present, S2 normal heart sound present, no gallops, no murmurs and no rubs Peripheral pulses: Peripheral pulses 2+ throughout Neuro General: patient oriented x3 Extrem General: Yes normal to inspection, No no pedal edema and No calf tenderness Psych Appearance: grossly normal Mental Status: mental status grossly normal Speech and movement: Normal speech and movement present Assessment & Plan Assessment & Plan (1) Dyspnea on exertion: Code(s): R06.09 - Other forms of dyspnea Category: Medical Plan: Cardiac evaluation for patient with shortness of breath on exertion. Cardiac risk factors of obesity, hyperlipidemia, prior smoking. EKG last visit shows sinus rhythm with no signs of ischemia, rate 94. Echocardiogram ordered, has not been completed yet. CTA of the coronary arteries 07/07/2025 showing mild nonobstructive coronary disease, possible PFO. Test results reviewed with him in detail. Plan to call him when echo results are available. Based on information known his shortness of breath symptom may be related to obesity, asthma, prior smoking. No clear cardiac cause as of yet. (2) CAD (coronary artery disease): Comment: CTA of coronary arteries 07/07/2025 shows proximal LAD less than 25% stenosis, proximal D2 50% stenosis, proximal to mid RCA less than 25% stenosis. Code(s): I25.10 - Atherosclerotic heart disease of [place] coronary artery without angina pectoris Category: Medical Plan: Nonobstructive coronary artery disease as seen on recent CTA of the coronaries. No anginal symptoms at this time. Diagnosis of CAD and Risk factor modification discussed with him. Continue aspirin, adding atorvastatin. (3) Mild ascending aorta dilatation: Code(s): I77.810 - Thoracic aortic ectasia Category: Medical Plan: Echocardiogram from 05/14/2024 showed mildly dilated ascending aorta 4.1 cm. Blood pressure is well controlled. Will reassess this on upcoming echo. (4) Pericardial effusion: Code(s): I31.39 - Other pericardial effusion (noninflammatory) Category: Medical Plan: Last echo 05/14/2024 shows small pericardial effusion. He has shortness of breath with exertion which is not new. Will reassess on upcoming echo. (5) PFO (patent foramen ovale): Code(s): Q21.12 - Patent foramen ovale Category: Medical Plan: CTA of the coronary arteries is showing possible PFO. This finding was not mentioned on last echocardiogram. Will add bubble study to upcoming echocardiogram. Of note he did have remote pulmonary embolism and is on daily aspirin. (6) Elevated LDL cholesterol level: Code(s): E78.00 - Pure hypercholesterolemia, unspecified Category: Medical Plan: Atkins LDL goal less than 70 in patient with CAD. Labs done 03/22/2025 shows LDL 115. Will start on atorvastatin 20 mg daily. Plan for recheck of lipids and LFT in 6 weeks. (7) Obesity (BMI 30-39.9): Code(s): E66.9 - Obesity, unspecified Category: Medical Plan: Weight loss would be beneficial for him. Discussed increasing physical activity as able. Plan I discussed with the patient the findings of mild coronary artery disease and the importance of starting atorvastatin to lower cholesterol levels. We reviewed the history of pulmonary embolism and the need to continue aspirin therapy. The patient was informed about the aortic dilation and the plan for blood pressure management and follow-up imaging. We discussed the possible patent foramen ovale and the planned bubble study for confirmation. The small pericardial effusion will be monitored with follow-up echocardiograms. The patient was advised to continue using CPAP for sleep apnea management. Orders: Orders CA echo transthoracic complete 04/21/25 Q21.12 - Patent foramen ovale, R06.09 - Other forms of dyspnea Lipid Panel Today E78.00 - Pure hypercholesterolemia, unspecified, I25.10 - Atherosclerotic heart disease of [place] coronary artery without angina pectoris Liver Panel Today E78.00 - Pure hypercholesterolemia, unspecified, I25.10 - Atherosclerotic heart disease of [place] coronary artery without angina pectoris Medications: New atorvastatin (Lipitor) 20 mg PO BEDTIME 30 tabs 5RF Patient Instructions: - Start atorvastatin as prescribed to lower cholesterol levels. - Continue taking aspirin daily to prevent blood clots. - Monitor blood pressure periodically. - Attend scheduled echocardiogram for bubble study to check for patent foramen ovale. - Use CPAP machine every night to manage sleep apnea. Patient was informed and verbally consented to the use of an ambient scribe for clinic note documentation during this visit. Visit time spent on chart review, interview, assessment, orders, documentation. Coding Level of Care Code Est Pt Level 4 (50466) Complex EM visit Add On G2211 Diagnoses Dyspnea on exertion R06.09 CAD (coronary artery disease) I25.10 Mild ascending aorta dilatation I77.810 Pericardial effusion I31.39 PFO (patent foramen ovale) Q21.12 Elevated LDL cholesterol level E78.00 Obesity (BMI 30-39.9) E66.9 Time Spent (min) 32
[2025-07-15 08:45] VITALS: BP 126/70; PULSE 98; BMI 38.0
--- OUTSIDE RECORDS SUMMARY | 2025-07-15 09:40 | XMS_ITS | Clinical Summary ---
Author Organization [facility] Address [address] [place] [address] Care Team Providers Care Coin Counter And Wrapper Name Role Phone Gerry Bean Primary Care [...] COVID-19 Vaccine (1 - 2023-2 5 season) 2025 Influenza (#1) 2025 HPV Vaccine (No Doses Required) Completed Hep A Aged Out No longer eligi ble based on patient's age to complete this topic Hib Aged Out No longer eligi ble based on patient's age to complete this topic Meningococcal ACWY Aged Out No longer eligible based on patient's age to complete this topic Insurance [employer] PPO Care Teams Coin Counter And Wrapper Relationship Specialty Start Date End Date Gerry Bean [facility] [address] [place] [address] PCP - General 05/22/10
== END 2025-07-15 09:47 | disposition home or self-care (01) ==
LOC: HO.HCS 08:37
PROVIDERS: PCP Nurse Practitioner Family; Visit Provider Nurse Practitioner Family
DX: R06.09 Other forms of dyspnea (principal); I25.10 Atherosclerotic heart disease of native coronary artery without angina pectoris; I77.810 Thoracic aortic ectasia; I31.39 Other pericardial effusion (noninflammatory); Q21.12 Patent foramen ovale; E78.00 Pure hypercholesterolemia, unspecified; E66.9 Obesity, unspecified
CPT/HCPCS: 99214

== ENCOUNTER → 2025-07-20 07:58 | Outpatient (REF) | payer OTHER, SELFPAY ==
--- NOTE | 2025-07-20 08:01 | CA_ITS ---
Transthoracic Echocardiogram Patient (Last, First, Middle): Franco Myles R Gender: Male Date of : 1975 Age: 50 Procedure Date: 07/20/2025 Procedure Type: Transthoracic Echocardiogram Location: OP Height: 180.34 cm Weight: 127.01 kg BSA: 2.43 m2 Heart Rate: bpm BP: 130 / 86 mmHg Operations Examiner: TO Referring MD: Neelima Benedict STAFF RESPIRATORY THERAPISTMejia Symptoms: R06.09 - Other forms of dyspnea Study Quality: Adequate ECG Rhythm: Sinus Conclusions: - The left ventricular systolic function is normal. The visually estimated ejection fraction is between 55-60%. - Bubble study performed with rest and Valsalva; no obvious shunting but limited quality. - No obvious valvular pathology seen on this study. - There is mild dilatation of the ascending aorta measuring 4.10 cm. Findings Left Ventricle Normal left ventricular cavity size. The left ventricular systolic function is normal. The visually estimated ejection fraction is between 55-60%. There is no evidence of regional wall motion abnormalities. Diastolic function is normal for age. There is mild septal asymmetric hypertrophy. Right Ventricle Mildly increased right ventricular cavity size. There is normal right ventricular systolic function. Atria Both atria are normal in size. Bubble study performed with rest and Valsalva; no obvious shunting but limited quality. Aortic Valve There is a normal trileaflet aortic valve. There is no aortic valve stenosis. There is no aortic valve regurgitation. Mitral Valve The mitral valve appears normal. There is no mitral valve regurgitation. There is no mitral valve stenosis. Pulmonic Valve The pulmonic valve is likely normal. Tricuspid Valve There is trace tricuspid valve regurgitation. There is no evidence of pulmonary hypertension. Great Vessels There is mild dilatation of the ascending aorta measuring 4.10 cm. Venous The inferior vena cava is normal in size and collapses greater than 50% with inspiration. Pericardium/Pleural There is no evidence of pericardial effusion. Prior Study Comparison No significant change compared to prior study dated: 05/14/2024. Recommendations, Care & Conclusions No obvious valvular pathology seen on this study. Measurements 2D Linear Measurements IVSd: 1.11 0.6-0.9/0.6-1.0 cm LVIDd: 4.46 3.9-5.3/4.2-5.9 cm LVIDd Index: 1.84 2.4-3.2/2.2-3.1 cm/m2 LVIDs: 3.31 2.0-3.6 cm LVPWd: 1.01 0.7-1.1 cm LV Mass: 204.02 67-162/88-224 g LV Mass Index: 83.96 43-95/49-115 g/m2 LVOT Diam: 2.30 3.0+(-)1.3 cm 2D Systolic Function EF 4C: 53.70 >55% EF 2C: 53.30 >55% EF BiP: 53.40 >55% Mitral Valve MV Pk E: 0.58 MV PK A: 0.55 MV Decel Time: 271.00 E/A: 1.10 E'Lateral: 8.59 E'Medial: 10.00 E/E' Med: 5.80 E/E' Lat: 6.80 PHT: 79.00 MVA PHT: 2.78 Decel [place]: 2.15 Aortic Valve AoV Pk Link: 1.43 AoV Mn Link: 1.00 AoV VTI: 0.24 AoV Pk Grad: 8.00 Aov Mn Grad: 5.00 LUCIEN Cont.VTI: 3.44 LVOT LVOT Pk Link: 1.06 LVOT Mn Link: 0.67 LVOT VTI: 0.20 LVOT Pk Grad: 4.00 LVOT Mn Grad: 2.00 LVOT Diam: 2.30 LVOT Area: 4.15 Diastolic Function MV Pk E: 0.58 MV Pk A: 0.55 E/A: 1.10 E'Medial: 10.00 E/E' Med: 5.80 E' Laterial: 8.59 E/E' Lat: 6.80 Tricuspid Valve RA Press: 3.00 Great Vessels Aorta Ao Asc: 4.10 2.1-3.4 cm Updated in Other Vendor System with Status of Final Jarett Kerr MD electronically signed on 07/21/2025 11:23:03 AM with status of Final
== END ==
LOC: HO.CARD 07:58
PROVIDERS: Visit Provider Internal Medicine
DX: R06.09 Other forms of dyspnea (principal); Q21.12 Patent foramen ovale
CPT/HCPCS: 93306; Q9957

== ENCOUNTER → 2025-07-20 08:01 | Outpatient (BNV) | payer OTHER, SELFPAY | PROVIDERS: Visit Provider Internal Medicine | DX: I42.2 Other hypertrophic cardiomyopathy (principal); R06.09 Other forms of dyspnea; I77.810 Thoracic aortic ectasia | CPT/HCPCS: 93306 ==

== ENCOUNTER 2025-07-21 09:59 | Outpatient (AMB) | payer OTHER, SELFPAY ==
[2025-07-21 10:02] VITALS: BP 136/88; PULSE 94; O2SAT 98; BMI 37.8
--- NOTE | 2025-07-21 10:02 | MHC.OFFVIS ---
Vital Signs 07/21/25 10:02 Height 5 ft 11 in Weight 271 lb 2 oz BMI 37.8 BP 136/88 Blood Pressure Location Lt brachial Position Sitting Pulse 94 Pulse Source Pulse Oximeter Pulse Oximetry (%) 98 Oxygen Delivery Method Room Air 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: Dyspnea Allergies oxycodone (From Percocet) Allergy (Unknown, Verified 07/21/25 10:04) Unknown HPI HPI Dyspnea: Details: Franco is a pleasant 50 year old male, former smoker with 14 pack year history, quit 20 years ago with underlying asthma COPD overlap syndrome, allergic rhinitis, and BEST on CPAP therapy. He reports moderate control with current regimen of Breztri, singulair, combivent, DuoNeb and albuterol MDI. Over the last few weeks patient reports overall improvements in respiratory symptoms, using Combivent 2-3 times per day and continues to use DuoNeb BID, previously using both multiple times per day. His main symptom at this time is dyspnea on exertion. Triggers include activity, weather extremes with cold and humidity. Prior RAST + to multiple environmental allergies. Of note, he previously reported BLE edema and occasional orthopnea, was sent for echo which revealed mild decrease in LVEF 55-60%. He continue to report intermittent chest pressure more than discomfort, noted at rest. He has since been evaluated by cardiology with possible PFO found on cardiac imaging and underwent a bubble study yesterday, results pending, will be following with cardiology. He denies any visits to urgent care or hospitalizations related to respiratory distress. 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 Cognitive needs: No Hearing needs: No Vision needs: No Review of Systems Const Denies chills, Denies excessive sweating, Denies fever(s), Denies headache(s) and Denies night sweats Eyes Denies dry eyes, Denies irritation and Denies itchy eyes ENT Reports Normal hearing present, Denies headache(s), Denies nasal congestion, Denies nasal discharge, Denies post nasal drip and Denies sore throat Card Denies chest pain, Denies chest pain at rest, Denies chest pain with activity, Denies claudication, Reports dyspnea on exertion, Reports orthopnea and Denies paroxysmal nocturnal dyspnea Resp Denies chest congestion, Denies excessive phlegm production, Denies pain on inspiration, Denies pain with cough, Reports dyspnea on exertion and Denies stridor Musc Denies myalgias Neuro Reports Normal hearing present and Denies headache(s) Endo Denies excessive sweating Edmund/Lymph Denies lymphadenopathy Aller/Immun Denies itchy eyes and Denies seasonal rhinorrhea Physical Exam Vital Signs: Last Vital Signs Pulse 94 07/21/25 10:02 BP 136/88 07/21/25 10:02 Pulse Ox 98 07/21/25 10:02 Oxygen Delivery Method Room Air 07/21/25 10:02 BMI result Body Mass Index 37.8 Const General: cooperative, healthy appearing, comfortable, no acute distress, well developed and alert Nutritional Appearance: obese Orientation/consciousness: patient oriented x3 Limitations: no limitations HEENT Head: Yes normal to inspection, Yes normocephalic and Yes atraumatic Ears: hearing grossly normal bilaterally and external ears normal Eyes General: appearance normal, both eyes and all related structures Eyelids: Yes eyelids normal Sclerae: sclerae normal EOM: EOMs intact bilaterally Neck Neck: Yes normal visual inspection and Yes no lymphadenopathy Lymphatic: no lymphadenopathy noted Chest Chest palpation & inspection: normal inspection of the chest Resp Effort & Inspection: normal respiratory effort, able to speak in complete sentences, no audible wheezes, no cough, no stridor, not tachypneic, no tripod positioning and no use of accessory muscles Auscultation: no crackles, no wheezes and diminished lung sounds (bases) Cardio Jugular venous distension: no JVD Rate: regular rate Rhythm: regular rhythm Skin Other: warm, dry General skin exam: no rashes or lesions noted Neuro General: patient oriented x3 Cranial nerves: Yes Normal hearing present Cognition (Neuro): normal cognition Gait exam (Neuro): Normal gait present Extrem General: Yes normal to inspection, Yes capillary refill normal, Yes no clubbing, cyanosis or edema and Yes no pedal edema Psych Appearance: grossly normal and well kempt Speech and movement: Normal speech and movement present and Clear speech present Affect: normal affect Attitude: cooperative Thought process: Normal thought process present Thought content: Normal thought content present Insight: Good insight present (Psych) Judgement: Good judgement present (Psych) Assessment & Plan Assessment & Plan (1) Severe persistent asthma: Code(s): J45.50 - Severe persistent asthma, uncomplicated Category: Medical (2) Asthma-COPD overlap syndrome: Code(s): J44.89 - Other specified chronic obstructive pulmonary disease Category: Medical (3) Cough: Code(s): R05.9 - Cough, unspecified Category: Medical (4) BEST on CPAP: Code(s): G47.33 - Obstructive sleep apnea (adult) (pediatric) Category: Medical (5) Exertional chest pain: Code(s): R07.9 - Chest pain, unspecified Category: Medical Plan At this time, Franco reports moderate control of respiratory symptoms on current regimen, significantly decrease use of DuoNeb and Combivent, rarely uses albuterol MDI. He is currently undergoing evaluation with cardiology, CTA revealed possible PFO and had bubble study performed yesterday. If no significant findings, will consider Xolair as patient with +RAST and IgE 67. Will repeat PFT as prior was from 2022 to asses for any changes. Reviewed compliance report and patient has been using CPAP therapy >4 hours for 100% of the time, average AHI 1.6, with minimal leaks. Patient is benefitting from therapy and motivated to be compliant with therapy. All questions were answered and patient is in agreement of plan. Will follow up after PFT or sooner if needed. Orders: Orders PFT pulmonary function test Today J44.89 - Other specified chronic obstructive pulmonary disease Coding Level of Care Code Est Pt Level 4 (74321) Diagnoses Severe persistent asthma J45.50 Asthma-COPD overlap syndrome J44.89 Cough R05.9 BEST on CPAP G47.33 Exertional chest pain R07.9
--- OUTSIDE RECORDS SUMMARY | 2025-07-21 11:59 | XMS_ITS | Clinical Summary ---
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
== END 2025-07-21 10:42 | disposition home or self-care (01) ==
LOC: HO.HPSW 10:00
PROVIDERS: PCP Nurse Practitioner Family; Visit Provider Nurse Practitioner Family
DX: J45.50 Severe persistent asthma, uncomplicated (principal); J44.89 Other specified chronic obstructive pulmonary disease; R05.9 Cough, unspecified; G47.33 Obstructive sleep apnea (adult) (pediatric); R07.9 Chest pain, unspecified
CPT/HCPCS: 99214